=== PATIENT | female | born 1960 | race Caucasian/White ===

== ENCOUNTER 2021-03-31 16:35 | Emergency (ER) | payer OTHER, SELFPAY ==
[2021-03-31 16:49] VITALS: BP 124/82; PULSE 67; RESP 16; TEMP 36.5; O2SAT 97; BMI 25.4
[2021-03-31 17:17] LABS: Glucose Urine UA NEG (NEG); Leukocyte Esterase Urine 2+ (NEG); Nitrite Urine POS (NEG); Specific Gravity - Urine <= 1.005 (1.005-1.025); Urine Blood NEG (NEG); Urine Ketones NEG (NEG); Urine Protein NEG (NEG-TRACE)
[2021-03-31 17:19] LABS: Appearance Urine CLEAR; Color Urine STRAW
[2021-03-31 17:24] LABS: RBC Urine 0-2 /HPF (0); WBC Urine 0-2 /HPF (0-4)
[2021-03-31 17:25] LABS: Bacteria Urine 3+ /LPF
[2021-03-31 17:26] LABS: Amorphous Sediment Urine 2+ /LPF
[2021-03-31 17:50] LABS: MANUAL DIFF FLAG NO
[2021-03-31 17:53] LABS: Basophils Percent Auto 0.8 % (0-2); Eosinophils Absolute Auto 0.2 X10*3/uL (0.0-0.4); Eosinophils Percent Auto 3.1 % (0-4); Hematocrit 37.6 % (37-47); Hemoglobin 12.3 g/dl (12.0-16.0); Imm Gran Abs Auto 0.01 X10*3/uL (0.00-0.03); Imm Gran Pct Auto 0.2 % (0.0-0.4); Lymphocytes Absolute Auto 1.3 X10*3/uL (1.2-4.9); Lymphocytes Percent Auto 24.8 % (20-40); Mean Corpuscular HGB Conc 32.7 g/dl (31.0-35.0); Mean Corpuscular Hemoglobin 29.7 pg (27.0-33.0); Mean Corpuscular Volume 90.8 fL (80-98); Mean Platelet Volume 8.7 fL (9.4-12.3); Monocytes Absolute Auto 0.5 X10*3/uL (0.1-1.2); Neutrophils Absolute Auto 3.3 X10*3/uL (2.0-8.3); Neutrophils Percent Auto 62.1 % (45-73); Platelet Count 241 X10*3/uL (160-400); Red Blood Count 4.14 X10*6/uL (4.20-5.50); Red Cell Distribution Width 13.2 % (11.0-16.0); White Blood Count 5.2 X10*3/uL (4.8-10.8)
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
[2021-03-31 18:20] LABS: Alanine Aminotransferase 19 U/L (0-31); Albumin Level 4.1 g/dL (3.5-5.0); Alkaline Phosphatase 87 U/L (39-117); Aspartate Amino Transferase 24 U/L (5-31); Bilirubin Total 0.5 mg/dL (0.0-1.0); Blood Urea Nitrogen 12 mg/dL (9-16); Calcium 8.9 mg/dL (8.4-10.2); Creatinine Clr Calc Pharmacy 66.6; Estimated Glomerular Filt Rate > 60; Glucose Random 86 mg/dL (60-115); Magnesium 2.2 mg/dL (1.6-2.6); Total Protein 6.6 g/dL (6.5-8.0)
[2021-03-31 18:31] LABS: Anion Gap 12 (12-20); Carbon Dioxide 28 mmol/L (22-29); Chloride 98 mmol/L (96-108); Potassium 4.2 mmol/L (3.3-5.1); Sodium 134 mmol/L (135-145)
== END 2021-03-31 19:04 | disposition home or self-care (01) ==
PROVIDERS: Physician Assistant Medical; Emergency Provider Internal Medicine; PCP Internal Medicine
DX: T83.511A Infection and inflammatory reaction due to indwelling urethral catheter, initial encounter (principal); R10.30 Lower abdominal pain, unspecified; G82.20 Paraplegia, unspecified; Z87.440 Personal history of urinary (tract) infections
CPT/HCPCS: 36415; 80053; 81001; 83735; 85025; 99283; 99284

== ENCOUNTER 2021-04-08 13:37 | Emergency (ER) | payer OTHER, SELFPAY ==
[2021-04-08 14:00] VITALS: BP 136/81; PULSE 60; RESP 16; TEMP 36.7; O2SAT 99; BMI 20.9
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
[2021-04-08 15:22] LABS: Appearance Urine CLEAR; Color Urine STRAW; Glucose Urine UA NEG (NEG); Leukocyte Esterase Urine NEG (NEG); Nitrite Urine NEG (NEG); Specific Gravity - Urine <= 1.005 (1.005-1.025); Urine Blood 2+ (NEG); Urine Ketones NEG (NEG); Urine Protein NEG (NEG-TRACE)
[2021-04-08 15:27] LABS: Bacteria Urine TRACE /LPF; WBC Urine 0-2 /HPF (0-4)
[2021-04-08 15:41] LABS: Basophils Percent Auto 0.8 % (0-2); Eosinophils Absolute Auto 0.2 X10*3/uL (0.0-0.4); Eosinophils Percent Auto 3.4 % (0-4); Hematocrit 37.1 % (37-47); Hemoglobin 11.8 g/dl (12.0-16.0); Lymphocytes Absolute Auto 1.1 X10*3/uL (1.2-4.9); Lymphocytes Percent Auto 21.6 % (20-40); MANUAL DIFF FLAG NO; Mean Corpuscular HGB Conc 31.8 g/dl (31.0-35.0); Mean Corpuscular Hemoglobin 29.2 pg (27.0-33.0); Mean Corpuscular Volume 91.8 fL (80-98); Mean Platelet Volume 8.6 fL (9.4-12.3); Monocytes Absolute Auto 0.5 X10*3/uL (0.1-1.2); Monocytes Percent Auto 8.6 % (2-11); Neutrophils Absolute Auto 3.4 X10*3/uL (2.0-8.3); Neutrophils Percent Auto 65.6 % (45-73); Platelet Count 242 X10*3/uL (160-400); Red Blood Count 4.04 X10*6/uL (4.20-5.50); Red Cell Distribution Width 13.3 % (11.0-16.0); White Blood Count 5.2 X10*3/uL (4.8-10.8)
[2021-04-08 16:14] LABS: Alanine Aminotransferase 22 U/L (0-31); Albumin Level 3.8 g/dL (3.5-5.0); Alkaline Phosphatase 88 U/L (39-117); Anion Gap 12 (12-20); Aspartate Amino Transferase 27 U/L (5-31); Bilirubin Direct < 0.2 mg/dL (0.0-0.5); Bilirubin Total 0.5 mg/dL (0.0-1.0); Blood Urea Nitrogen 10 mg/dL (9-16); Calcium 9.1 mg/dL (8.4-10.2); Carbon Dioxide 26 mmol/L (22-29); Chloride 102 mmol/L (96-108); Creatinine Clr Calc Pharmacy 75.1; Estimated Glomerular Filt Rate > 60; Glucose Random 88 mg/dL (60-115); Lipase 33 U/L (8-78); Potassium 4.4 mmol/L (3.3-5.1); Sodium 136 mmol/L (135-145); Total Protein 6.4 g/dL (6.5-8.0)
== END 2021-04-08 16:58 | disposition home or self-care (01) ==
PROVIDERS: Emergency Provider Emergency Medicine; PCP Internal Medicine
DX: T83.84XA Pain due to genitourinary prosthetic devices, implants and grafts, initial encounter (principal); G82.20 Paraplegia, unspecified; R10.30 Lower abdominal pain, unspecified
CPT/HCPCS: 36415; 51702; 80048; 80076; 81001; 83690; 85025; 99283; 99284

== ENCOUNTER 2021-05-23 18:58 | Emergency (ER) | payer OTHER, SELFPAY ==
--- NOTE | ~2021-05-23 | CT_ITS ---
EXAMINATION: CT ABDOMEN AND PELVIS WITHOUT CONTRAST CLINICAL INFORMATION: Suprapubic catheter malfunction COMPARISON: CT abdomen pelvis April 06, 2019 TECHNIQUE: Multidetector volumetric imaging was performed from the superior aspect of the liver through the pubic symphysis. Sagittal and coronal reformatted images were obtained on the technologist's workstation. This CT examination was performed using dose optimization techniques as appropriate, variously including the following: *Automated exposure control *Adjustment of mA and/or kV according to patient size (this includes techniques or standardized protocols for targeted exams where dose is matched to indication/reason for exam; i.e. extremities or head) *Use of iterative reconstruction technique DLP: 453 mGy-cm FINDINGS: LUNG BASES: Asymmetric elevation of left diaphragm above the right. No acute airspace disease or pleural effusion at lung bases. LIVER, GALLBLADDER, AND BILIARY TREE: The liver is normal in size, shape, and attenuation. No focal hepatic lesion or biliary ductal dilatation is present. Small gallstones within the gallbladder. No gallbladder wall thickening. No dilatation of biliary tree. PANCREAS: Unremarkable. SPLEEN: Unremarkable. ADRENAL GLANDS: Unremarkable. KIDNEYS AND URETERS: Mild fullness of the renal pelvis and calyces of both kidney. This is similar to CAT scan April 06, 2019. No renal or ureteral calculus. BLADDER: Suprapubic catheter within the bladder. The catheter tip passes up against the dome of the bladder pressing into the bladder wall. The balloon of the suprapubic catheter which was inflated on the CAT scan of April 06, 2019 is not inflated on this exam. No bladder mass or calculus. GASTROINTESTINAL TRACT: No acute abnormality. There is no bowel wall thickening /edema. There is no bowel obstruction. There is a large volume of stool in the colon. The appendix is normal . The small bowel loops are unremarkable. The stomach is normal. There is no hiatal hernia. ABDOMINAL WALL: No significant hernia is appreciated. LYMPH NODES: Normal. VASCULAR: Unremarkable. PELVIC VISCERA: Unremarkable. OSSEOUS STRUCTURES: Intrathecal catheter terminating above the level of the imaged thoracic spine. The pump is seen at the anterior abdominal wall on the right. CT/CT abdomen pelvis wo con IMPRESSION: 1. Suprapubic catheter within the bladder. The catheter tip passes up against the dome of the bladder pressing into the bladder wall. The balloon of the suprapubic catheter which was inflated on the CAT scan of April 06, 2019 is not inflated on this exam. 2. Mild fullness of the renal pelvis of both kidneys without renal or ureteral calculi. No change since prior CAT scan April 06, 2019. 3. Cholelithiasis. 4. Large volume of stool in colon. No acute change of the bowel.
[2021-05-23 20:01] VITALS: BP 176/88; PULSE 84; RESP 18; TEMP 36.9; O2SAT 97; BMI 20.9
[2021-05-23 21:42] VITALS: BP 148/78; PULSE 65; RESP 16; O2SAT 100
[2021-05-23 22:11] LABS: MANUAL DIFF FLAG NO
[2021-05-23 22:12] LABS: Basophils Absolute Auto 0.1 X10*3/uL (0.0-0.2); Basophils Percent Auto 0.8 % (0-2); Eosinophils Absolute Auto 0.2 X10*3/uL (0.0-0.4); Eosinophils Percent Auto 3.4 % (0-4); Imm Gran Abs Auto 0.01 X10*3/uL (0.00-0.03); Imm Gran Pct Auto 0.2 % (0.0-0.4); Lymphocytes Absolute Auto 0.8 X10*3/uL (1.2-4.9); Lymphocytes Percent Auto 14.2 % (20-40); Mean Corpuscular HGB Conc 32.5 g/dl (31.0-35.0); Mean Corpuscular Hemoglobin 29.5 pg (27.0-33.0); Mean Corpuscular Volume 90.9 fL (80-98); Mean Platelet Volume 9.1 fL (9.4-12.3); Monocytes Absolute Auto 0.7 X10*3/uL (0.1-1.2); Monocytes Percent Auto 11.2 % (2-11); Neutrophils Absolute Auto 4.1 X10*3/uL (2.0-8.3); Neutrophils Percent Auto 70.2 % (45-73); Platelet Count 239 X10*3/uL (160-400); Red Cell Distribution Width 13.1 % (11.0-16.0); White Blood Count 5.9 X10*3/uL (4.8-10.8)
[2021-05-23 22:19] LABS: Appearance Urine HAZY; Color Urine YELLOW; Glucose Urine UA NEG (NEG); Leukocyte Esterase Urine 3+ (NEG); Nitrite Urine POS (NEG); PH 6.5 (5.0-8.0); Specific Gravity - Urine <= 1.005 (1.005-1.025); UACC Culture Trigger YES; Urine Blood 2+ (NEG); Urine Ketones NEG (NEG); Urine Protein NEG (NEG-TRACE)
[2021-05-23 22:29] LABS: Bacteria Urine 4+ /LPF; Mucus Urine 2+ /LPF; Squamous Epithelial Cell Urine 1+ /LPF
[2021-05-23 22:36] LABS: Alanine Aminotransferase 25 U/L (0-31); Albumin Level 4.5 g/dL (3.5-5.0); Alkaline Phosphatase 97 U/L (39-117); Anion Gap 15 (12-20); Aspartate Amino Transferase 27 U/L (5-31); Bilirubin Total 0.4 mg/dL (0.0-1.0); Blood Urea Nitrogen 11 mg/dL (9-16); Calcium 9.5 mg/dL (8.4-10.2); Carbon Dioxide 28 mmol/L (22-29); Chloride 99 mmol/L (96-108); Creatinine Clr Calc Pharmacy 74.1; Estimated Glomerular Filt Rate > 60; Glucose Random 75 mg/dL (60-115); Potassium 4.4 mmol/L (3.3-5.1); Sodium 138 mmol/L (135-145); Total Protein 7.5 g/dL (6.5-8.0)
--- NOTE | 2021-05-23 22:39 | ED.FEMALEGU ---
HPI - Female Genitourinary General Chief complaint: Urogenital-Female Stated complaint: diff urinating Time Seen by Provider: 05/23/21 22:29 Source: patient Mode of arrival: ambulatory Limitations: no limitations History of Present Illness HPI Narrative: 60-year-old quadriplegic female presents with suprapubic Ghotra problems, bladder pain and spasms, and increased spasticity since her 2nd COVID vaccine. MD elicited complaint: dysuria Pertinent past history: spinal cord injury and other (Suprapubic Ghotra) Onset (ago): day(s) Location of symptoms: suprapubic and urethra Severity: moderate Quality of pain: other (Spasming) Consistency: intermittent Vaginal discharge: none Vaginal bleeding: none Associated symptoms: abdominal pain Related Data Previous Rx's Medication Instructions Recorded ciprofloxacin HCl 250 mg tablet 250 mg PO BID 5 Days #10 tab 03/31/21 phenazopyridine 100 mg tablet 100 mg PO TID PRN #6 tab 03/31/21 (Pyridium) ciprofloxacin HCl 500 mg tablet 500 mg PO Q12H 10 Days #20 tab 05/24/21 (Cipro) phenazopyridine 200 mg tablet 200 mg PO TID PRN #20 tab 05/24/21 (Pyridium) Allergies Allergy/AdvReac Type Severity Reaction Status Date / Time nitrofurantoin Allergy Swelling Verified 05/23/21 20:13 [From Macrobid] Review of Systems Review of Systems: Constitutional: No Fever, No Chills ENT/Mouth: No Ear Pain, No Hoarseness, No sore throat Eyes: No Eye Pain, No Swelling, No Redness, No Foreign Body Cardiovascular: No Chest Pain, No SOB Respiratory: No Cough, No Dyspnea Gastrointestinal: No Nausea, No Vomiting, No Diarrhea, No abdominal Pain Genitourinary: Positive bladder spasms, positive suprapubic Ghotra catheter leaking at the site as well as urethral leaking, No Dysuria, No Hematuria Musculoskeletal: No joint pain, No Myalgias, No Joint Swelling Skin: No Skin lacerations, No rash Neuro: No Weakness, No Numbness, No Paresthesias, No Loss of Consciousness, No Dizziness, No Headache Psych: No Anxiety/Panic, No Depression Heme/Lymph: no easy bruising, no Lymphadenopathy Endocrine: No Polyuria, No Polydipsia PMFSH Past Medical History Attestation statement: The following information was validated with the patient. Source: old records reviewed Medical History (Updated 05/24/21 @ 00:23 by Naina Jackson NP) C5-C7 incomplete quadriplegia Neurogenic bladder Social History Social History Advance Directives: No Advance Directives Information Provided: No Physical Exam Vital Signs: Vital Signs: Last Vital Signs Temp 98.5 F 05/23/21 20:01 Pulse 78 05/24/21 00:09 Resp 18 05/24/21 00:09 BP 138/66 05/24/21 00:09 Pulse Ox 99 05/24/21 00:09 Body Mass Index 20.9 Appearance: Alert. Oriented X3. Moderate distress. Eyes: Pupils equal, round and reactive to light. ENT: Pharynx normal. Neck: Normal inspection. Neck supple. CVS: Normal heart rate and rhythm. Pulses normal. Respiratory: No respiratory distress. Breath sounds normal. Abdomen: Soft and nontender. Suprapubic Ghotra in place, leaking at the site Skin: Skin warm and dry. Normal skin color. Normal skin turgor. Extremities: Quadriplegia, moves upper extremities Neuro: No motor deficit. No sensory deficit. Cranial nerves 2-12 intact. Course Course Course Narrative: 60-year-old quadriplegic presents with suprapubic Ghotra leaking, bladder spasms, and spasticity. Lab values indicate UTI, will treat with Levaquin as we do not have ciprofloxacin on board, Pyridium and Ativan for spasticity. Will order abdomen pelvis CT scan secondary to urethral and ostomy site leakage. CT of the abdomen indicates the balloon is not inflated and that the end of the tubing is pressed up against the bladder wall which could possibly be why urine is leaking. Ghotra catheter was changed by this [employer] without any difficulty. Approximately 300 mL of residual urine, no leakage once Ghotra was changed and balloon was properly inflated. Will discharge home with antibiotics and Pyridium. Patient verbalized understanding of and agrees to plan of care discharge home. MDM - Female Genitourinary Differential Diagnosis Differential diagnosis: Likely urinary tract infection and cystitis Medical Records Attestation: I reviewed the patient's medical records. Lab Data Attestation: I reviewed the patient's lab results. Result diagrams: 05/23/21 21:41 05/23/21 21:41 Labs: Lab Results 05/23/21 05/23/21 05/23/21 Range/Units 21:41 21:41 21:43 WBC 5.9 (4.8-10.8) X10*3/uL RBC 4.40 (4.20-5.50) X10*6/uL Hgb 13.0 (12.0-16.0) g/dl Hct 40.0 (37-47) % MCV 90.9 (80-98) fL MCH 29.5 (27.0-33.0) pg MCHC 32.5 (31.0-35.0) g/dl RDW 13.1 (11.0-16.0) % Plt Count 239 (160-400) X10*3/uL MPV 9.1 L (9.4-12.3) fL Immature Gran % (Auto) 0.2 (0.0-0.4) % Neut % (Auto) 70.2 (45-73) % Lymph % (Auto) 14.2 L (20-40) % [place] % (Auto) 11.2 H (2-11) % Eos % (Auto) 3.4 (0-4) % Baso % (Auto) 0.8 (0-2) % Lymph # (Auto) 0.8 L (1.2-4.9) X10*3/uL [place] # (Auto) 0.7 (0.1-1.2) X10*3/uL Eos # (Auto) 0.2 (0.0-0.4) X10*3/uL Baso # (Auto) 0.1 (0.0-0.2) X10*3/uL Abs Immat Gran (auto) 0.01 (0.00-0.03) X10*3/uL Absolute Neuts (auto) 4.1 (2.0-8.3) X10*3/uL Absolute Nucleated RBC 0.000 (0.0-0.012) X10*3/uL Nucleated RBC % (auto) 0.0 (0.0-0.2) /100WBC Sodium 138 (135-145) mmol/L Potassium 4.4 (3.3-5.1) mmol/L Chloride 99 (96-108) mmol/L Carbon Dioxide 28 (22-29) mmol/L Anion Gap 15 (12-20) BUN 11 (9-16) mg/dL Creatinine 0.77 (0.5-1.4) mg/dL Estim Creat Clear Calc 74.1 Estimated GFR > 60 Random Glucose 75 (60-115) mg/dL Calcium 9.5 (8.4-10.2) mg/dL Total Bilirubin 0.4 (0.0-1.0) mg/dL AST 27 (5-31) U/L ALT 25 (0-31) U/L Alkaline Phosphatase 97 (39-117) U/L Total Protein 7.5 (6.5-8.0) g/dL Albumin 4.5 (3.5-5.0) g/dL Urine Color YELLOW Urine Appearance HAZY Urine pH 6.5 (5.0-8.0) Ur Specific [place] <= 1.005 (1.005-1.025) Urine Protein NEG (NEG-TRACE) MG/DL Urine Glucose (UA) NEG (NEG) MG/DL Urine Ketones NEG (NEG) MG/DL Urine Blood 2+ H (NEG) Urine Nitrite POS H (NEG) Ur Leukocyte Esterase 3+ H (NEG) Urine RBC 5-9 H (0) /HPF Urine WBC 10-14 H (0-4) /HPF Ur Squamous Epith Cells 1+ /LPF Urine Bacteria 4+ /LPF Urine Mucus 2+ /LPF Imaging Data CT abdomen pelvis: Attestation: I personally reviewed and interpreted this imaging study as follows: Radiologist's impression: FINDINGS: LUNG BASES: Asymmetric elevation of left diaphragm above the right. No acute airspace disease or pleural effusion at lung bases.? LIVER, GALLBLADDER, AND BILIARY TREE: The liver is normal in size, shape, and attenuation. No focal hepatic lesion or biliary ductal dilatation is present. Small gallstones within the gallbladder. No gallbladder wall thickening. No dilatation of biliary tree.? PANCREAS: Unremarkable.? SPLEEN: Unremarkable.? ADRENAL GLANDS: Unremarkable.? KIDNEYS AND URETERS: Mild fullness of the renal pelvis and calyces of both kidney. This is similar to CAT scan April 06, 2019. No renal or ureteral calculus.? BLADDER: Suprapubic catheter within the bladder. The catheter tip passes up against the dome of the bladder pressing into the bladder wall. The balloon of the suprapubic catheter which was inflated on the CAT scan of April 06, 2019 is not inflated on this exam. No bladder mass or calculus. GASTROINTESTINAL TRACT: No acute abnormality. There is no bowel wall thickening /edema. There is no bowel obstruction. There is a large volume of stool in the colon. The appendix is normal . The small bowel loops are unremarkable. The stomach is normal. There is no hiatal hernia.? ABDOMINAL WALL: No significant hernia is appreciated.? LYMPH NODES: Normal. VASCULAR: Unremarkable. PELVIC VISCERA: Unremarkable.? OSSEOUS STRUCTURES: Intrathecal catheter terminating above the level of the imaged thoracic spine. The pump is seen at the anterior abdominal wall on the right.? CT/CT abdomen pelvis wo con IMPRESSION: ? 1.? Suprapubic catheter within the bladder. The catheter tip passes up against the dome of the bladder pressing into the bladder wall. The balloon of the suprapubic catheter which was inflated on the CAT scan of April 06, 2019 is not inflated on this exam. 2. Mild fullness of the renal pelvis of both kidneys without renal or ureteral calculi. No change since prior CAT scan April 06, 2019. 3. Cholelithiasis. 4. Large volume of stool in colon. No acute change of the bowel. Discharge Plan Discharge Clinical Impression: Chronic indwelling Ghotra catheter, Paraplegic spinal paralysis, Urinary tract infection Patient Disposition: Home, Self-Care Instructions: Constipation (ED), Catheter-associated Urinary Tract Infection (ED) Additional Instructions: You were evaluated for suprapubic Ghotra catheter problems. We replaced her Ghotra. Urinalysis positive for UTI. Please take ciprofloxacin 500 mg twice a day for the next 10 days. Please use Pyridium 200 mg as needed for bladder spasms. Your CT scan of abdomen and pelvis indicates constipation. Please take MiraLax twice a day and use suppositories more often to help reduce stool burden. I think your amazing. Thank you for being awesome. Thank you for choosing this emergency department for evaluation. Please follow-up with primary care physician as needed. Return to the emergency department for any new, concerning, or worsening symptoms. Prescriptions: New ciprofloxacin HCl [Cipro] 500 mg tablet 500 mg PO Q12H 10 Days Qty: 20 RF: 0 phenazopyridine [Pyridium] 200 mg tablet 200 mg PO TID PRN (Reason: Bladder spasm) Qty: 20 RF: 0 No Action ciprofloxacin HCl 250 mg tablet 250 mg PO BID 5 Days Qty: 10 RF: 0 phenazopyridine [Pyridium] 100 mg tablet 100 mg PO TID PRN (Reason: pain) Qty: 6 RF: 0 Interventions: ED Discharge Assessment Last Done: 05/24/21 00:59 Discharge Date/Time: 05/24/21 00:55
[2021-05-23] MEDS: LORazepam 0.5 MG TABLET PO (23:02)
[2021-05-23] MEDS: Phenazopyridine HCL 200 MG TABLET PO (23:02)
[2021-05-23] MEDS: Acetaminophen 325 MG TABLET 650 MG PO (23:03)
[2021-05-24] MEDS: levoFLOXacin 750 MG TABLET PO (00:06)
[2021-05-24 00:09] VITALS: BP 138/66; PULSE 78; RESP 18; O2SAT 99
== END 2021-05-24 00:55 | disposition home or self-care (01) ==
PROVIDERS: Emergency Provider Emergency Medicine
DX: T83.038A Leakage of other urinary catheter, initial encounter (principal); T83.511A Infection and inflammatory reaction due to indwelling urethral catheter, initial encounter; N39.0 Urinary tract infection, site not specified; G82.20 Paraplegia, unspecified; G95.89 Other specified diseases of spinal cord; Z96.0 Presence of urogenital implants; Z79.899 Other long term (current) drug therapy
CPT/HCPCS: 36415; 51702; 74176; 80053; 81001; 85025; 87086; 87088; 87186; 99284

== ENCOUNTER → 2021-06-11 09:17 | Outpatient (BNVA) | payer OTHER, SELFPAY | PROVIDERS: PCP Internal Medicine | DX: G82.50 Quadriplegia, unspecified (principal); Z87.440 Personal history of urinary (tract) infections | CPT/HCPCS: 51705; 99212 ==

== ENCOUNTER → 2021-07-24 13:29 | Outpatient (BNVA) | payer OTHER, SELFPAY | PROVIDERS: PCP Internal Medicine | DX: N39.0 Urinary tract infection, site not specified (principal) | CPT/HCPCS: 99212 ==

== ENCOUNTER → 2021-08-07 14:28 | Outpatient (BNVA) | payer OTHER, SELFPAY | PROVIDERS: PCP Internal Medicine | DX: N39.0 Urinary tract infection, site not specified (principal) | CPT/HCPCS: Q3014 ==

== ENCOUNTER 2021-08-23 13:47 | Outpatient (REF) | payer OTHER, SELFPAY ==
[2021-08-23 15:31] LABS: Appearance Urine CLEAR; Color Urine YELLOW; Glucose Urine UA NEG (NEG); Leukocyte Esterase Urine 3+ (NEG); Nitrite Urine NEG (NEG); Specific Gravity - Urine <= 1.005 (1.005-1.025); Urine Blood NEG (NEG); Urine Ketones NEG (NEG); Urine Protein NEG (NEG-TRACE)
[2021-08-23 16:01] LABS: Bacteria Urine TRACE /LPF; RBC Urine 0-2 /HPF (0); Squamous Epithelial Cell Urine TRACE /LPF
== END 2021-08-23 13:48 | disposition home or self-care (01) ==
LOC: HO.LAB 13:47
PROVIDERS: PCP Internal Medicine
DX: N39.0 Urinary tract infection, site not specified (principal)
CPT/HCPCS: 81001; 87086; 87088; 87186

== ENCOUNTER → 2021-12-10 11:58 | Outpatient (BNVA) | payer OTHER, SELFPAY | PROVIDERS: PCP Internal Medicine | DX: Z13.89 Encounter for screening for other disorder (principal) | CPT/HCPCS: Q3014 ==

== ENCOUNTER 2022-05-16 11:47 | Emergency (ER) | payer OTHER, SELFPAY ==
--- NOTE | ~2022-05-16 | XR_ITS ---
EXAMINATION: XR chest 1V CLINICAL INFORMATION: Cough COMPARISON: Most recent prior chest x-ray from 04/08/2018 TECHNIQUE: XR chest 1V Lungs and [place]enn[place]: Both lungs are clear. There is a right apical pleural thickening pleural capping chronic unchanged. Mild diffuse interstitial markings. Chronic. Pleura: Normal. Costophrenic angles are sharp. No pneumothorax. Heart: The heart is normal in size. Mediastinum: The mediastinum is within normal limits.. Bones: Skeletal structures included are normal for patient's age. XR/XR chest 1V IMPRESSION: No radiographic evidence of acute infiltrate pneumonia. Chronic changes as above.
[2022-05-16 12:43] VITALS: BP 154/73; PULSE 80; RESP 16; TEMP 37.2; O2SAT 99; BMI 20.3
[2022-05-16 13:23] LABS: COVID-19 Test Negative (Negative)
[2022-05-16 13:35] LABS: IDNOW Serial# 08D9AD1C; Influenza A Negative (Negative); Influenza B2 Negative (Negative)
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
== END 2022-05-16 14:34 | disposition home or self-care (01) ==
PROVIDERS: Emergency Provider Student in an Organized Health Care Education/Training Program; PCP Internal Medicine
DX: H66.91 Otitis media, unspecified, right ear (principal); H92.01 Otalgia, right ear; R42 Dizziness and giddiness; R05.9 Cough, unspecified; Z20.822 Contact with and (suspected) exposure to COVID-19
CPT/HCPCS: 71045; 87502; 87635; 99283

== ENCOUNTER 2022-06-23 14:41 | Outpatient (REF) | payer OTHER, SELFPAY ==
[2022-06-23 15:45] LABS: Appearance Urine Clear; Color Urine Dark Yellow; Glucose Urine UA Negative (Negative); Leukocyte Esterase Urine Moderate (2+) (Negative); Nitrite Urine Negative (Negative); Specific Gravity - Urine <= 1.005 (1.005-1.025); UMIC TRIGGER UA YES; Urine Blood Negative (Negative); Urine Ketones Negative (Negative); Urine Protein Negative (Neg-Trace)
[2022-06-23 16:08] LABS: Bacteria Urine 4+ (None Seen); Hyaline Casts Urine 0-2 /LPF (0-2); RBC Urine 0-2 /HPF (0-2); Squamous Epithelial Cell Urine 0-2 /HPF (0-2)
== END 2022-06-23 14:42 | disposition home or self-care (01) ==
LOC: HO.LAB 14:41
PROVIDERS: PCP Internal Medicine; Visit Provider Urology
DX: N39.0 Urinary tract infection, site not specified (principal)
CPT/HCPCS: 81001; 87086; 87088; 87186

== ENCOUNTER → 2022-08-15 13:04 | Outpatient (BNVA) | payer OTHER, SELFPAY | PROVIDERS: PCP Internal Medicine; Visit Provider Urology | DX: N39.0 Urinary tract infection, site not specified (principal); G82.54 Quadriplegia, C5-C7 incomplete; Z97.8 Presence of other specified devices | CPT/HCPCS: Q3014 ==

== ENCOUNTER 2022-09-19 13:39 | Outpatient (REF) | payer OTHER, SELFPAY ==
[2022-09-19 15:06] LABS: Appearance Urine Clear; Color Urine Dark Yellow; Glucose Urine UA Negative (Negative); Leukocyte Esterase Urine Large (3+) (Negative); Nitrite Urine Positive (Negative); Specific Gravity - Urine <= 1.005 (1.005-1.025); UMIC TRIGGER UA YES; Urine Blood Moderate (2+) (Negative); Urine Ketones Negative (Negative); Urine Protein Negative (Neg-Trace)
[2022-09-19 15:11] LABS: Bacteria Urine 1+ (None Seen); Hyaline Casts Urine 0-2 /LPF (0-2); Squamous Epithelial Cell Urine 0-2 /HPF (0-2)
== END 2022-09-19 13:40 | disposition home or self-care (01) ==
LOC: HO.LAB 13:39
PROVIDERS: PCP Internal Medicine; Visit Provider Urology
DX: N39.0 Urinary tract infection, site not specified (principal)
CPT/HCPCS: 81001; 87086

== ENCOUNTER 2022-12-08 16:19 | Outpatient (REF) | payer OTHER, SELFPAY ==
--- NOTE | ~2022-12-08 | US_ITS ---
EXAMINATION: US RETROPERITONEAL LIMITED (RENAL ONLY) CLINICAL INFORMATION: Urinary tract infection, site not specified. COMPARISON: CT abdomen and pelvis without contrast 05/23/2021. TECHNIQUE: Real-time imaging of the kidneys. FINDINGS: RIGHT KIDNEY: 9.1 x 4.0 x 4.4 cm (SAG x AP x TRV). The kidney is normal in size, contour, and echogenicity. Renal cortical thickness is normal. No calculi or focal parenchymal lesions. There are scattered echogenic foci which do not conform ultrasound criteria for calculi. No hydronephrosis. LEFT KIDNEY: 8.5 x 4.4 x 4.0 cm (SAG x AP x TRV). The kidney is normal in size, contour, and echogenicity. Renal cortical thickness is normal. No calculi or focal parenchymal lesions. There are scattered echogenic foci which do not conform ultrasound criteria for calculi. No hydronephrosis. US/US renal BI IMPRESSION: Unremarkable examination.
== END 2022-12-08 16:20 | disposition home or self-care (01) ==
LOC: HO.US 16:19
PROVIDERS: PCP Internal Medicine; Visit Provider Urology
DX: G82.20 Paraplegia, unspecified (principal); N31.9 Neuromuscular dysfunction of bladder, unspecified; N39.0 Urinary tract infection, site not specified; Z97.8 Presence of other specified devices
CPT/HCPCS: 76775

== ENCOUNTER → 2022-12-29 13:44 | Outpatient (BNVA) | payer OTHER, SELFPAY | PROVIDERS: PCP Internal Medicine; Visit Provider Urology | DX: N39.0 Urinary tract infection, site not specified (principal); G82.54 Quadriplegia, C5-C7 incomplete; Z97.8 Presence of other specified devices | CPT/HCPCS: Q3014 ==

== ENCOUNTER 2023-01-22 14:09 | Outpatient (REF) | payer OTHER, SELFPAY ==
[2023-01-22 15:08] LABS: Appearance Urine Clear; Color Urine Yellow; Glucose Urine UA Negative (Negative); Leukocyte Esterase Urine Moderate (2+) (Negative); Nitrite Urine Negative (Negative); Specific Gravity - Urine <= 1.005 (1.005-1.025); UMIC TRIGGER UA YES; Urine Blood Negative (Negative); Urine Ketones Negative (Negative); Urine Protein Negative (Neg-Trace)
[2023-01-22 15:19] LABS: Bacteria Urine 2+ (None Seen); Hyaline Casts Urine 0-2 /LPF (0-2); RBC Urine 0-2 /HPF (0-2); Squamous Epithelial Cell Urine 0-2 /HPF (0-2)
== END 2023-01-22 14:10 | disposition home or self-care (01) ==
LOC: HO.LAB 14:09
PROVIDERS: PCP Internal Medicine; Visit Provider Urology
DX: N39.0 Urinary tract infection, site not specified (principal); N31.9 Neuromuscular dysfunction of bladder, unspecified
CPT/HCPCS: 81001; 87086; 87088; 87186

== ENCOUNTER 2023-02-08 15:13 | Outpatient (REF) | payer OTHER, SELFPAY | END 2023-02-08 15:14 | disposition home or self-care (01) | LOC: HO.LAB 15:13 | PROVIDERS: PCP Internal Medicine; Visit Provider Urology | DX: N31.9 Neuromuscular dysfunction of bladder, unspecified (principal); N39.0 Urinary tract infection, site not specified | CPT/HCPCS: 87086; 87088; 87186 ==

== ENCOUNTER → 2023-02-25 13:04 | Outpatient (BNVA) | payer OTHER, SELFPAY | PROVIDERS: PCP Internal Medicine; Visit Provider Internal Medicine | DX: N39.0 Urinary tract infection, site not specified (principal); N31.9 Neuromuscular dysfunction of bladder, unspecified; B96.5 Pseudomonas (aeruginosa) (mallei) (pseudomallei) as the cause of diseases classified elsewhere; Z16.23 Resistance to quinolones and fluoroquinolones; S14.157A Other incomplete lesion at C7 level of cervical spinal cord, initial encounter; G82.54 Quadriplegia, C5-C7 incomplete; V89.0XXA Person injured in unspecified motor-vehicle accident, nontraffic, initial encounter; Y93.9 Activity, unspecified; Y92.9 Unspecified place or not applicable; Y99.8 Other external cause status; Z97.8 Presence of other specified devices | CPT/HCPCS: 99202 ==

== ENCOUNTER 2023-04-13 10:33 | Outpatient (AMB) | payer OTHER, SELFPAY ==
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
== END 2023-04-13 11:00 | disposition home or self-care (01) ==
LOC: HO.HUSH 10:33
PROVIDERS: PCP Internal Medicine; Visit Provider Urology
DX: G82.54 Quadriplegia, C5-C7 incomplete (principal); N31.9 Neuromuscular dysfunction of bladder, unspecified; Z97.8 Presence of other specified devices; G82.20 Paraplegia, unspecified; N39.0 Urinary tract infection, site not specified
CPT/HCPCS: 99213

== ENCOUNTER → 2023-04-13 10:33 | Outpatient (BNVA) | payer OTHER, SELFPAY | PROVIDERS: PCP Internal Medicine; Visit Provider Urology | DX: N31.9 Neuromuscular dysfunction of bladder, unspecified (principal); G82.54 Quadriplegia, C5-C7 incomplete; N39.0 Urinary tract infection, site not specified; Z96.0 Presence of urogenital implants | CPT/HCPCS: 99212 ==

== ENCOUNTER 2023-07-22 14:20 | Outpatient (REF) | payer OTHER, SELFPAY ==
[2023-07-22 15:13] LABS: Appearance Urine Clear; Color Urine Yellow; Glucose Urine UA Negative (Negative); Leukocyte Esterase Urine Moderate (2+) (Negative); Nitrite Urine Positive (Negative); PH 7.5 (5.0-9.0); Specific Gravity - Urine <= 1.005 (1.005-1.025); UMIC TRIGGER UA YES; Urine Blood Negative (Negative); Urine Ketones Negative (Negative); Urine Protein Negative (Neg-Trace)
[2023-07-22 15:19] LABS: Bacteria Urine Trace (None Seen); Hyaline Casts Urine 0-2 /LPF (0-2); RBC Urine 0-2 /HPF (0-2); Squamous Epithelial Cell Urine 0-2 /HPF (0-2)
== END 2023-07-22 14:21 | disposition home or self-care (01) ==
LOC: HO.LAB 14:20
PROVIDERS: PCP Internal Medicine; Visit Provider Urology
DX: N39.0 Urinary tract infection, site not specified (principal)
CPT/HCPCS: 81001; 87086; 87088; 87186

== ENCOUNTER → 2023-08-14 13:19 | Outpatient (BNVA) | payer OTHER, SELFPAY | PROVIDERS: PCP Internal Medicine; Visit Provider Urology ==

== ENCOUNTER 2023-10-22 11:54 | Outpatient (AMB) | payer OTHER, SELFPAY ==
--- NOTE | 2023-10-22 11:54 | MHC.OFFVIS ---
Intake Intake Visit Reasons: 6m/neurogenic bladder/SP tube/chronic UTI's Allergies nitrofurantoin [From Macrobid] Allergy (Verified 04/13/23 10:34) Swelling Penicillins Allergy (Verified 04/13/23 10:34) Unknown Sulfa (Sulfonamide Antibiotics) Allergy (Verified 04/13/23 10:34) Unknown HPI HPI Comments History of Present Illness Details Erica is a pleasant female. She is a patient of Dr. Reyes. She is seen for the following urologic conditions. 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 Neurogenic bladder managed with SP tube 18 Chinese Tube changed every 3 weeks by COOK STARCH Baseline oxybutynin 5 mg for spasm Has been on methenamine 1 g for suppression however causes diarrhea Will use it when has UTI type symptoms Again discussed today possible use of Macrobid however has allergy to nitrofurantoin Reviewed: Renal US?12/08/2022-- Kidneys: WNL, No renal calculi visualized Continue surveillance Tele health visits work better given her restriction from attending office [facility] Medical History C5-C7 incomplete quadriplegia (~10/2015) Neurogenic bladder Social History Alcohol intake: current Patient Tobacco Use Status: Former Tobacco user Review of Systems Const All systems reviewed & are unremarkable except as noted in HPI and below Reports no additional complaints Resp Reports no additional complaints GI Reports no additional complaints Reports as per HPI Musc Reports no additional complaints Physical Exam Telemedicine evaluation Appropriate responses Regular breathing rate and rhythm HEENT Head: Yes normal to inspection Ears: hearing grossly normal bilaterally Eyes General: appearance normal, both eyes and all related structures Neck Neck: Yes normal visual inspection Chest Chest palpation & inspection: normal inspection of the chest Resp Effort & Inspection: normal respiratory effort and able to speak in complete sentences Assessment & Plan Assessment & Plan (1) Neurogenic bladder: Code(s): N31.9 - Neuromuscular dysfunction of bladder, unspecified (2) Bladder spasm: Code(s): N32.89 - Other specified disorders of bladder Plan Six-month follow-up Patient Instructions: Imaging studies, laboratory and physical exam results were discussed and reviewed in detail. No major barriers to patient understanding were identified. An opportunity to ask questions regarding the treatment plan was provided. All questions were answered. The patient expressed understanding and agreement with the above treatment plan. The patient is aware they should contact our office by phone for worsening of their current condition or the appearance of new urologic symptoms. Compliance is encouraged with any medications and followup testing that is ordered. It is a privilege to participate in the urologic care of your patient. If you have any questions or concerns regarding treatment for the above conditions, or other urologic issues, please do not hesitate to contact me. The office telephone contact is [phone]. This note is constructed using voice recognition software. While every effort has been made to ensure accuracy arcade game technician errors may have been included. Yours sincerely, Dr Nelson Calvo MD, [facility] - Urology Providers of Expert, Compassionate Care for the Genitourinary System Telehealth Telehealth Location of provider rendering services: practice address Location of patient: address on file Patient Identification confirmed using: Name, : Yes Telehealth method: video Patient verbally consented to treatment: Yes Patient verbally consented to billing insurance company: Yes Patient informed of any privacy concerns related to visit: Yes Coding Level of Care Code Tele Est Pt Level 3 (04449) Diagnoses Neurogenic bladder N31.9 Bladder spasm N32.89
== END 2023-10-22 12:34 | disposition home or self-care (01) ==
LOC: HO.HUSH 11:54
PROVIDERS: PCP Internal Medicine; Visit Provider Urology
DX: N31.9 Neuromuscular dysfunction of bladder, unspecified (principal); N32.89 Other specified disorders of bladder
CPT/HCPCS: 99213

== ENCOUNTER → 2023-10-22 11:54 | Outpatient (BNVA) | payer OTHER, SELFPAY | PROVIDERS: PCP Internal Medicine; Visit Provider Urology ==

== ENCOUNTER 2023-10-23 08:52 | Emergency (ER) | payer OTHER, SELFPAY ==
[2023-10-23 09:27] VITALS: BP 149/79; BP 149/80; PULSE 60; PULSE 68; RESP 20; TEMP 37; O2SAT 97; O2SAT 98; BMI 21.0
--- NOTE | 2023-10-23 09:49 | ED_ITS ---
HPI - Female Genitourinary General Chief complaint: Urogenital-Female Stated complaint: CATH TUBE FELL OUT Time Seen by Provider: 10/23/23 09:20 Source: patient, old records reviewed and other Mode of arrival: EMS Limitations: no limitations History of Present Illness HPI Narrative: 62 yo female with C3-C4 quad from SCI with chronic suprapubic cath for last 8 years normally uses 18F last known in place at 1030pm woke up with cath and balloon deflated on bed near her. MD elicited complaint: other (sam cath problem) Pertinent past history: spinal cord injury and other (chronic indwelling) Onset (ago): day(s) (?1030pm) Location of symptoms: suprapubic Severity: moderate Quality of pain: cramping Consistency: intermittent Urinary symptoms: Difficulty Urinating Exacerbating factors: none Relieving factors: none Associated symptoms: denies other symptoms Treatment prior to arrival: none Related Data Home Medications Medication Instructions Recorded Confirmed citalopram 10 mg tablet 10 mg PO DAILY 08/07/21 08/15/22 citalopram 20 mg tablet 20 mg PO DAILY 08/07/21 08/15/22 gabapentin 100 mg capsule 100 mg PO TID 08/07/21 08/15/22 gabapentin 600 mg tablet 600 mg PO TID 08/07/21 08/15/22 levothyroxine 50 mcg capsule 50 mcg PO DAILY 08/07/21 08/15/22 polyethylene glycol 3350 17 17 g PO DAILY 08/07/21 08/15/22 gram/dose oral powder (Miralax) sennosides 17.2 mg tablet 17.2 mg PO DAILY 08/07/21 08/15/22 Previous Rx's Medication Instructions Recorded methenamine hippurate 1 gram tablet 1 g PO BID 30 days #60 tabs 02/25/23 oxybutynin chloride 5 mg tablet 5 mg PO DAILY #90 tabs 04/13/23 ciprofloxacin HCl 500 mg tablet 500 mg PO BID 4 days #8 tabs 08/24/23 phenazopyridine 100 mg tablet 100 mg PO TID PRN pain 5 days #15 08/25/23 (Pyridium) tabs levofloxacin 750 mg tablet 750 mg PO DAILY 7 days #7 tabs 09/18/23 Allergies Allergy/AdvReac Type Severity Reaction Status Date / Time nitrofurantoin Allergy Swelling Verified 10/23/23 09:37 [From Macrobid] Penicillins Allergy Unknown Verified 10/23/23 09:37 Sulfa (Sulfonamide Allergy Unknown Verified 10/23/23 09:37 Antibiotics) sulfamethoxazole Allergy Swelling Verified 10/23/23 09:37 [From Bactrim] trimethoprim [From Bactrim] Allergy Swelling Verified 10/23/23 09:37 Review of Systems Review of Systems: Constitutional : No Weight loss, No Fever, No Chills ENT/Mouth : No sore throat, No Rhinorrhea Eyes: No Swelling, No Redness Cardiovascular : No Chest Pain, No SOB, NoEdema Respiratory : No Cough, No Sputum, No Wheezing Gastrointestinal : no Nausea, no Vomiting, no Diarrhea, positive abdominal Pain, No Hematochezia, No Melena Genitourinary : No Dysuria, No Urinary Frequency, No Hematuria, No Urgency Musculoskeletal : No joint pain, No Myalgias, No Joint Swelling Skin : No Skin Lesions, No rash Neuro : No Weakness, No Numbness, No Dizziness, No Headache Psych : No Anxiety/Panic, No Depression All other systems reviewed and are negative. [facility] Past Medical History Attestation statement: The following information was validated with the patient. Source: old records reviewed Onset Date is defined in the Problem List Problems that require an onset date and time if occurred within 24 hrs of arrival to the ED Aortic Dissection and Rupture; Neurologic impairment; Cardiopulmonary Arrest; Endotracheal Intubation; Insertion or Replacement of Mechanical Circulatory Assist Device Medical History C5-C7 incomplete quadriplegia (~10/2015) Neurogenic bladder Social History Social History Alcohol intake: current Patient Tobacco Use Status: Former Tobacco user Physical Exam Vital Signs: Vital Signs: Last Vital Signs Temp 98.6 F 10/23/23 09:27 Pulse 60 10/23/23 09:27 Resp 20 10/23/23 09:27 BP 149/79 H 10/23/23 09:27 Pulse Ox 97 10/23/23 09:27 O2 Del Method Room Air 10/23/23 09:27 BMI result Body Mass Index 21.0 Appearance: Alert. Oriented X3. No acute distress. Eyes: Pupils equal, round and reactive to light. ENT: Pharynx normal. Neck: Normal inspection. Neck supple. CVS: Normal heart rate and rhythm. Pulses normal. Respiratory: No respiratory distress. Breath sounds normal. Abdomen: Soft and mild ttp along suprapubic area it feels full tract is appearing closed and small no blood seen no erythema Skin: Skin warm and dry. Normal skin color. Normal skin turgor. Extremities: No lower extremity edema. No calf ttp Neuro: Oriented X 3. SCI C3-C7 LE spastic Medical Decision Making Medical Decision Making MDM Narrative: 62 yo female SCI C3-C7, chronic 18F suprapubic cath at this time no bleeding balloon was deflated tract is 8 years old at this time will need replacement will use 14F given swollen area and to prevent trauma. No concern for bleeding or infection urine is clear and yellow. Differential Diagnosis Differential Diagnoses: The differential diagnosis associated with the presentation includes loss of sam catheter Independent Historian Clinical information obtained from an independent historian. History obtained from or confirmed by: Other External Record Review External record reviewed: Inpatient record Procedures Catheter Insertion (Urinary) Date of insertion: 10/23/23 Time of insertion: 09:54 Reason for placing: Yes Reason for placing indwelling catheter: Other (chronic indwelling) Bladder scan/ultrasound used before catheterization: No Estimated amount of urine (mLs): 700 Antiseptic solution prep: Povidone-Iodine Topical anesthesia used: No Catheter type/location: Suprapubic Size ([place]i): 14 Catheter balloon size (mL): 10 Catheter balloon amount: 10 Results: successfully catheterized-immediate flow Procedure performed: without complications Discharge Plan Discharge Clinical Impression: Mechanical complication of suprapubic catheter Qualifiers: Encounter type: initial encounter Qualified Code(s): T83.090A - Other mechanical complication of cystostomy catheter, initial encounter Patient Disposition: Home, Self-Care Instructions: How to Care for Your Suprapubic Catheter (DC) Additional Instructions: return for bleeding, pain, fevers, vomiting or any other concerns. 14 F placed given tract was swollen and narrow. will need to increase in size in about a week please contact Dr. Calvo's office. Prescriptions: No Action ciprofloxacin HCl 500 mg tablet 500 mg PO BID 4 Days Qty: 8 0RF phenazopyridine [Pyridium] 100 mg tablet 100 mg PO TID PRN (Reason: pain) 5 Days Qty: 15 0RF levofloxacin 750 mg tablet 750 mg PO DAILY 7 Days Qty: 7 0RF gabapentin 600 mg tablet 600 mg PO TID gabapentin 100 mg capsule 100 mg PO TID citalopram 20 mg tablet 20 mg PO DAILY citalopram 10 mg tablet 10 mg PO DAILY sennosides 17.2 mg tablet 17.2 mg PO DAILY polyethylene glycol 3350 [Miralax] 17 gram/dose powder 17 g PO DAILY levothyroxine 50 mcg capsule 50 mcg PO DAILY oxybutynin chloride 5 mg tablet 5 mg PO DAILY Qty: 90 3RF methenamine hippurate 1 gram tablet 1 g PO BID 30 Days Qty: 60 5RF
[2023-10-23] MEDS: Ondansetron ODT 4 MG TAB.RAPDIS TRANSLINGU (10:01)
== END 2023-10-23 10:36 | disposition home or self-care (01) ==
PROVIDERS: Emergency Provider Emergency Medicine; PCP Internal Medicine
DX: T83.098A Other mechanical complication of other urinary catheter, initial encounter (principal); Y73.8 Miscellaneous gastroenterology and urology devices associated with adverse incidents, not elsewhere classified; Y92.9 Unspecified place or not applicable
CPT/HCPCS: 51702; 99283; 99284

== ENCOUNTER → 2023-10-28 13:42 | Outpatient (BNVA) | payer OTHER, SELFPAY | PROVIDERS: PCP Internal Medicine; Visit Provider Urology | DX: N31.9 Neuromuscular dysfunction of bladder, unspecified (principal) | CPT/HCPCS: 51705 ==

== ENCOUNTER 2023-11-10 13:46 | Outpatient (REF) | payer OTHER, SELFPAY ==
[2023-11-10 14:39] LABS: Appearance Urine Clear; Color Urine Yellow; Glucose Urine UA Negative (Negative); Leukocyte Esterase Urine Negative (Negative); Nitrite Urine Negative (Negative); PH 7.5 (5.0-9.0); Specific Gravity - Urine <= 1.005 (1.005-1.025); Urine Blood Negative (Negative); Urine Ketones Negative (Negative); Urine Protein Negative (Neg-Trace)
[2023-11-10 14:45] LABS: Bacteria Urine None Seen (None Seen); Hyaline Casts Urine 0-2 /LPF (0-2); RBC Urine 0-2 /HPF (0-2); Squamous Epithelial Cell Urine 0-2 /HPF (0-2); WBC Urine 0-5 /HPF (0-5)
== END 2023-11-10 13:47 | disposition home or self-care (01) ==
LOC: HO.LAB 13:46
PROVIDERS: PCP Internal Medicine; Visit Provider Urology
DX: N39.0 Urinary tract infection, site not specified (principal)
CPT/HCPCS: 81001; 87086; 87088; 87186

== ENCOUNTER 2024-02-22 14:37 | Outpatient (REF) | payer OTHER, SELFPAY ==
[2024-02-22 14:49] LABS: Appearance Urine Clear; Color Urine Yellow; Glucose Urine UA Negative (Negative); Leukocyte Esterase Urine Large (3+) (Negative); Nitrite Urine Negative (Negative); Specific Gravity - Urine <= 1.005 (1.005-1.025); UMIC TRIGGER UA YES; Urine Blood Negative (Negative); Urine Ketones Negative (Negative); Urine Protein Negative (Neg-Trace)
[2024-02-22 14:52] LABS: Bacteria Urine Trace (None Seen); Hyaline Casts Urine 0-2 /LPF (0-2); RBC Urine 0-2 /HPF (0-2); Squamous Epithelial Cell Urine 0-2 /HPF (0-2); WBC Urine 21-50 /HPF (0-5)
== END 2024-02-22 14:38 | disposition home or self-care (01) ==
LOC: HO.LNP 14:37
PROVIDERS: Visit Provider Urology
DX: N39.0 Urinary tract infection, site not specified (principal)
CPT/HCPCS: 81001; 87086; 87088; 87186

== ENCOUNTER 2024-03-21 14:42 | Outpatient (REF) | payer OTHER, SELFPAY | END 2024-03-21 14:43 | disposition home or self-care (01) | LOC: HO.LNP 14:42 | PROVIDERS: Visit Provider Urology | DX: Z13.89 Encounter for screening for other disorder (principal) ==

== ENCOUNTER 2024-03-21 14:49 | Outpatient (REF) | payer OTHER, SELFPAY ==
[2024-03-21 15:09] LABS: Appearance Urine Clear; Color Urine Yellow; Glucose Urine UA Negative (Negative); Leukocyte Esterase Urine Moderate (2+) (Negative); Nitrite Urine Negative (Negative); Specific Gravity - Urine <= 1.005 (1.005-1.025); UMIC TRIGGER UA YES; Urine Blood Negative (Negative); Urine Ketones Negative (Negative); Urine Protein Negative (Neg-Trace)
[2024-03-21 15:24] LABS: Bacteria Urine 1+ (None Seen); Hyaline Casts Urine 0-2 /LPF (0-2); RBC Urine 0-2 /HPF (0-2); Squamous Epithelial Cell Urine 0-2 /HPF (0-2)
== END 2024-03-21 14:50 | disposition home or self-care (01) ==
LOC: HO.LAB 14:49
PROVIDERS: Visit Provider Urology
DX: N39.0 Urinary tract infection, site not specified (principal)
CPT/HCPCS: 81001; 87086; 87088; 87186

== ENCOUNTER → 2024-03-25 12:54 | Outpatient (BNVA) | payer OTHER, SELFPAY | PROVIDERS: PCP Internal Medicine; Visit Provider Urology ==

== ENCOUNTER 2024-04-16 12:01 | Outpatient (REF) | payer OTHER, SELFPAY ==
[2024-04-16 12:53] LABS: Appearance Urine Clear; Color Urine Dark Yellow; Glucose Urine UA Negative (Negative); Leukocyte Esterase Urine Small (1+) (Negative); Nitrite Urine Negative (Negative); PH 8.5 (5.0-9.0); Specific Gravity - Urine <= 1.005 (1.005-1.025); UMIC TRIGGER UA YES; Urine Blood Negative (Negative); Urine Ketones Negative (Negative); Urine Protein Negative (Neg-Trace)
[2024-04-16 13:05] LABS: Bacteria Urine None Seen (None Seen); Hyaline Casts Urine 0-2 /LPF (0-2); RBC Urine 0-2 /HPF (0-2); Squamous Epithelial Cell Urine 0-2 /HPF (0-2); WBC Urine 0-5 /HPF (0-5)
== END 2024-04-16 12:02 | disposition home or self-care (01) ==
LOC: HO.LNP 12:01
PROVIDERS: Visit Provider Urology
DX: N39.0 Urinary tract infection, site not specified (principal); N32.89 Other specified disorders of bladder
CPT/HCPCS: 81001; 87086; 87088; 87186

== ENCOUNTER 2024-04-25 15:12 | Emergency (ER) | payer OTHER, SELFPAY ==
[2024-04-25 15:28] VITALS: BP 111/64; PULSE 69; RESP 17; TEMP 36.3; O2SAT 95; BMI 21.8
--- NOTE | 2024-04-25 15:30 | ED_ITS ---
HPI - General Adult General Chief complaint: Urogenital-Female Stated complaint: uti ? Related Data Home Medications ?Medication ?Instructions ?Recorded ?Confirmed citalopram 10 mg tablet 10 mg PO DAILY 08/07/21 08/15/22 citalopram 20 mg tablet 20 mg PO DAILY 08/07/21 08/15/22 gabapentin 100 mg capsule 100 mg PO TID 08/07/21 08/15/22 gabapentin 600 mg tablet 600 mg PO TID 08/07/21 08/15/22 levothyroxine 50 mcg capsule 50 mcg PO DAILY 08/07/21 08/15/22 polyethylene glycol 3350 17 17 g PO DAILY 08/07/21 08/15/22 gram/dose oral powder (Miralax) sennosides 17.2 mg tablet 17.2 mg PO DAILY 08/07/21 08/15/22 Previous Rx's ?Medication ?Instructions ?Recorded oxybutynin chloride 5 mg tablet 5 mg PO DAILY #90 tabs 04/13/23 ascorbic acid (vitamin C) 1,000 mg 1 g PO DAILY 90 days #90 caps 11/10/23 capsule estradiol 10 mcg vaginal tablet 10 mcg vaginal 2XW UTI suppression 11/10/23 (Vagifem) 90 days #26 tabs levofloxacin 500 mg tablet 500 mg PO Q24H 3 days #3 tabs 02/18/24 fosfomycin tromethamine 3 gram 1 packet PO .weekly UTI 03/07/24 oral packet suppression 6 weeks #6 ea doxycycline monohydrate 100 mg 100 mg PO BID 7 days #14 caps 03/30/24 capsule levofloxacin 500 mg tablet 500 mg PO DAILY 7 days #7 tabs 03/30/24 fosfomycin tromethamine 3 gram 3 g PO Q3D UTI 9 days #3 ea 04/19/24 oral packet fosfomycin tromethamine 3 gram 1 packet PO .weekly UTI 04/26/24 oral packet suppression 12 weeks #12 ea Allergies Allergy/AdvReac Type Severity Reaction Status Date / Time nitrofurantoin Allergy Swelling Verified 04/25/24 15:39 [From Macrobid] Penicillins Allergy Unknown Verified 04/25/24 15:39 Sulfa (Sulfonamide Allergy Unknown Verified 04/25/24 15:39 Antibiotics) sulfamethoxazole Allergy Swelling Verified 04/25/24 15:39 [From Bactrim] trimethoprim [From Bactrim] Allergy Swelling Verified 04/25/24 15:39 [facility] Past Medical History Medical History C5-C7 incomplete quadriplegia (~10/2015) Neurogenic bladder Social History Social History Alcohol intake: current Patient Tobacco Use Status: Former Tobacco user Advance Directives: No Advance Directives Information Provided: No Do you have a plan to hurt others: No Plan Physical Exam ED Vital Signs: Vital Signs - 24 hr 04/25/24 15:28 Temperature 97.3 F Pulse Rate 69 Respiratory Rate 17 Blood Pressure 111/64 Pulse Oximetry 95 Oxygen Delivery Method Room Air BMI result Body Mass Index 21.8 Course Course Course Narrative: This is an RME: Additional HPI, ROS, PE not included below will be deferred to primary provider. RME assessment and note performed by: Adelaide Stone PA-C This is a [id number]-female with a hx of neurogenic bladder with indwelling sam catheter seen by Dr. Calvo, Spinal injury C5-7, who presents to the ER with complaints of chronic UTI. She states that she has been on ABX for many months - currently on fosfomycin. Reports that she has had hematuria, suprapubic pain which started yesterday. She has been on antibiotics recurrently for an infection that has not been able to clear. Plan: Labs, UA, further ER evaluation needed. Reevaluation(s) Reevaluation #1: Patient left without completing treatment. Medical Decision Making Lab Data 04/25/24 15:50 04/25/24 15:50 Labs: Lab Results 04/25/24 04/25/24 Range/Units 15:50 19:54 WBC 4.8 (4.8-10.8) X10*3/uL RBC 4.10 L (4.20-5.50) X10*6/uL Hgb 12.2 (12.0-16.0) g/dl Hct 37.1 (37.0-47.0) % MCV 90.5 (80.0-98.0) fL MCH 29.8 (27.0-33.0) pg MCHC 32.9 (31.0-35.0) g/dl RDW 14.4 (11.0-16.0) % Plt Count 267 (160-400) X10*3/uL MPV 8.2 L (9.4-12.3) fL Immature Gran % (Auto) 0.2 (0.0-0.4) % Neut % (Auto) 63.3 (45-73) % Lymph % (Auto) 24.0 (20-40) % [place] % (Auto) 8.8 (2-11) % Eos % (Auto) 3.1 (0-4) % Baso % (Auto) 0.6 (0-2) % Lymph # (Auto) 1.2 (1.2-4.9) X10*3/uL [place] # (Auto) 0.4 (0.1-1.2) X10*3/uL Eos # (Auto) 0.2 (0.0-0.4) X10*3/uL Baso # (Auto) 0.0 (0.0-0.2) X10*3/uL Abs Immat Gran (auto) 0.01 (0.00-0.03) X10*3/uL Absolute Neuts (auto) 3.0 (2.0-8.3) x10*3/uL Absolute Nucleated RBC 0.000 (0.0-0.012) X10*3/uL Nucleated RBC % (auto) 0.0 (0.0-0.2) /100WBC Sodium 134 L (135-145) mmol/L Potassium 3.7 (3.3-5.1) mmol/L Chloride 98 (96-108) mmol/L Carbon Dioxide 25 (22-29) mmol/L Anion Gap 15 (12-20) BUN 9 (9-16) mg/dL Creatinine 0.76 (0.5-1.4) mg/dL Estim Creat Clear Calc 75.6 Estimated GFR > 60 Random Glucose 124 H (60-115) mg/dL Calcium 9.4 (8.4-10.2) mg/dL Magnesium 2.1 (1.6-2.6) mg/dL Total Bilirubin 0.3 (0.0-1.0) mg/dL Direct Bilirubin 0.1 (0.0-0.5) mg/dL AST 33 H (5-31) U/L ALT 22 (0-31) U/L Alkaline Phosphatase 81 (39-117) U/L Total Protein 6.8 (6.5-8.0) g/dL Albumin 3.9 (3.5-5.0) g/dL Lipase 27 (8-78) U/L Urine Color Yellow Urine Appearance Clear Urine pH 6.5 (5.0-9.0) Ur Specific [place] <= 1.005 (1.005-1.025) Urine Protein Negative (Neg-Trace) mg/dL Urine Glucose (UA) Negative (Negative) mg/dL Urine Ketones Negative (Negative) mg/dL Urine Blood Trace H (Negative) Urine Nitrite Negative (Negative) Ur Leukocyte Esterase Large (3+) H (Negative) Urine RBC 0-2 (0-2) /HPF Urine WBC 21-50 H (0-5) /HPF Ur Squamous Epith Cells 0-2 (0-2) /HPF Urine Bacteria 4+ (None Seen) Hyaline Casts 0-2 (0-2) /LPF Discharge Plan Discharge Clinical Impression: Hematuria Patient Disposition: Left W/O Completing Treatment Prescriptions: No Action ascorbic acid (vitamin C) 1,000 mg capsule 1 g PO DAILY 90 Days Qty: 90 1RF estradiol [Vagifem] 10 mcg tablet 10 mcg vaginal 2XW 90 Days Qty: 26 1RF levofloxacin 500 mg tablet 500 mg PO Q24H 3 Days Qty: 3 0RF Rx Instructions: 3 additional days of abx to complete 10 day total treatment course fosfomycin tromethamine 3 gram packet 1 packet PO .weekly 42 Days Qty: 6 0RF Rx Instructions: additional doses for UTI suppression levofloxacin 500 mg tablet 500 mg PO DAILY 7 Days Qty: 7 0RF doxycycline monohydrate 100 mg capsule 100 mg PO BID 7 Days Qty: 14 0RF fosfomycin tromethamine 3 gram packet 3 g PO Q3D 9 Days Qty: 3 0RF Rx Instructions: One dose (one packet) every 3 days fosfomycin tromethamine 3 gram packet 1 packet PO .weekly 84 Days Qty: 12 0RF gabapentin 600 mg tablet 600 mg PO TID gabapentin 100 mg capsule 100 mg PO TID citalopram 20 mg tablet 20 mg PO DAILY citalopram 10 mg tablet 10 mg PO DAILY sennosides 17.2 mg tablet 17.2 mg PO DAILY polyethylene glycol 3350 [Miralax] 17 gram/dose powder 17 g PO DAILY levothyroxine 50 mcg capsule 50 mcg PO DAILY oxybutynin chloride 5 mg tablet 5 mg PO DAILY Qty: 90 3RF Discharge Date/Time: 04/25/24 20:47
[2024-04-25 15:54] LABS: MANUAL DIFF FLAG NO
[2024-04-25 15:57] LABS: Basophils Percent Auto 0.6 % (0-2); Eosinophils Absolute Auto 0.2 X10*3/uL (0.0-0.4); Eosinophils Percent Auto 3.1 % (0-4); Hematocrit 37.1 % (37.0-47.0); Hemoglobin 12.2 g/dl (12.0-16.0); Imm Gran Abs Auto 0.01 X10*3/uL (0.00-0.03); Imm Gran Pct Auto 0.2 % (0.0-0.4); Lymphocytes Absolute Auto 1.2 X10*3/uL (1.2-4.9); Mean Corpuscular HGB Conc 32.9 g/dl (31.0-35.0); Mean Corpuscular Hemoglobin 29.8 pg (27.0-33.0); Mean Corpuscular Volume 90.5 fL (80.0-98.0); Mean Platelet Volume 8.2 fL (9.4-12.3); Monocytes Absolute Auto 0.4 X10*3/uL (0.1-1.2); Monocytes Percent Auto 8.8 % (2-11); Neutrophils Percent Auto 63.3 % (45-73); Platelet Count 267 X10*3/uL (160-400); Red Cell Distribution Width 14.4 % (11.0-16.0); White Blood Count 4.8 X10*3/uL (4.8-10.8)
[2024-04-25 16:11] LABS: Alanine Aminotransferase 22 U/L (0-31); Albumin Level 3.9 g/dL (3.5-5.0); Alkaline Phosphatase 81 U/L (39-117); Anion Gap 15 (12-20); Aspartate Amino Transferase 33 U/L (5-31); Bilirubin Direct 0.1 mg/dL (0.0-0.5); Bilirubin Total 0.3 mg/dL (0.0-1.0); Blood Urea Nitrogen 9 mg/dL (9-16); Calcium 9.4 mg/dL (8.4-10.2); Carbon Dioxide 25 mmol/L (22-29); Chloride 98 mmol/L (96-108); Creatinine Clr Calc Pharmacy 75.6; Estimated Glomerular Filt Rate > 60; Glucose Random 124 mg/dL (60-115); Lipase 27 U/L (8-78); Magnesium 2.1 mg/dL (1.6-2.6); Potassium 3.7 mmol/L (3.3-5.1); Sodium 134 mmol/L (135-145); Total Protein 6.8 g/dL (6.5-8.0)
[2024-04-25 20:12] LABS: Appearance Urine Clear; Color Urine Yellow; Glucose Urine UA Negative (Negative); Leukocyte Esterase Urine Large (3+) (Negative); Nitrite Urine Negative (Negative); PH 6.5 (5.0-9.0); Specific Gravity - Urine <= 1.005 (1.005-1.025); UMIC TRIGGER UACC YES; Urine Blood Trace (Negative); Urine Ketones Negative (Negative); Urine Protein Negative (Neg-Trace)
[2024-04-25 20:16] LABS: Bacteria Urine 4+ (None Seen); Hyaline Casts Urine 0-2 /LPF (0-2); RBC Urine 0-2 /HPF (0-2); Squamous Epithelial Cell Urine 0-2 /HPF (0-2); UACC Culture Trigger YES; WBC Urine 21-50 /HPF (0-5)
== END 2024-04-25 20:47 | disposition left against medical advice (07) ==
LOC: HO.ED 20:47
PROVIDERS: Physician Assistant Medical; Emergency Provider Emergency Medicine; PCP Internal Medicine
DX: R31.9 Hematuria, unspecified (principal); Z79.899 Other long term (current) drug therapy
CPT/HCPCS: 36415; 80048; 80076; 81001; 81003; 83690; 83735; 85025; 87086; 87088; 87186; 99282; 99283

== ENCOUNTER → 2024-05-02 14:31 | Outpatient (BNVA) | payer OTHER, SELFPAY | PROVIDERS: PCP Internal Medicine; Visit Provider Urology | DX: N31.9 Neuromuscular dysfunction of bladder, unspecified (principal); N32.89 Other specified disorders of bladder; N39.0 Urinary tract infection, site not specified; Z97.8 Presence of other specified devices | CPT/HCPCS: 51700; J0665; J1644; J2919 ==

== ENCOUNTER → 2024-05-23 13:54 | Outpatient (BNVA) | payer OTHER, SELFPAY | PROVIDERS: PCP Internal Medicine; Visit Provider Urology | DX: N18.9 Chronic kidney disease, unspecified (principal); N32.89 Other specified disorders of bladder | CPT/HCPCS: 51700; J0665; J1644; J2919 ==

== ENCOUNTER → 2024-05-24 13:50 | Outpatient (BNVA) | payer OTHER, SELFPAY | PROVIDERS: PCP Internal Medicine; Visit Provider Urology | DX: N31.9 Neuromuscular dysfunction of bladder, unspecified (principal); N32.89 Other specified disorders of bladder | CPT/HCPCS: 51700; J0665; J1644; J2919 ==

== ENCOUNTER → 2024-05-25 14:44 | Outpatient (BNVA) | payer OTHER, SELFPAY | PROVIDERS: PCP Internal Medicine; Visit Provider Urology | DX: N31.9 Neuromuscular dysfunction of bladder, unspecified (principal); N32.89 Other specified disorders of bladder | CPT/HCPCS: 51700 ==

== ENCOUNTER → 2024-05-26 13:55 | Outpatient (BNVA) | payer OTHER, SELFPAY | PROVIDERS: PCP Internal Medicine; Visit Provider Urology | DX: N31.9 Neuromuscular dysfunction of bladder, unspecified (principal); N32.89 Other specified disorders of bladder | CPT/HCPCS: 51700; J0665; J1644; J2919 ==

== ENCOUNTER 2024-05-27 13:35 | Outpatient (AMB) | payer OTHER, SELFPAY ==
--- NOTE | 2024-05-27 13:45 | AM.OFFVISNUR ---
Intake Visit Reasons: IC instillation #5 Allergies nitrofurantoin [From Macrobid] Allergy (Verified 04/25/24 15:39) Swelling Penicillins Allergy (Verified 04/25/24 15:39) Unknown Sulfa (Sulfonamide Antibiotics) Allergy (Verified 04/25/24 15:39) Unknown sulfamethoxazole [From Bactrim] Allergy (Verified 04/25/24 15:39) Swelling trimethoprim [From Bactrim] Allergy (Verified 04/25/24 15:39) Swelling Office Procedures Bladder/Catheter Procedure Details: Patient presents to office for IC instillation #5. Instillation not done as patient reporting intense burning in bladder. UA and culture sample obtained. Additional procedure code (CPT) needed Results AMB Urinalysis, Automated UA Leukoctes 500 Chucky/uL Last Edit by Felix Sherman LPN on 05/27/24 14:38 UA Nitrite Negative Last Edit by Felix Sherman LPN on 05/27/24 14:38 UA Urobilinogen 0.2 mg/dL Last Edit by Felix Sherman LPN on 05/27/24 14:38 UA Protein 0 mg/dL Last Edit by Felix Sherman LPN on 05/27/24 14:38 UA pH 7.0 Last Edit by Felix Sherman LPN on 05/27/24 14:38 UA Blood 0 Ronald/uL Last Edit by Felix Sherman LPN on 05/27/24 14:38 UA Specific [place] 1.005 Last Edit by Felix Sherman LPN on 05/27/24 14:38 UA Ketone Negative Last Edit by Felix Sherman LPN on 05/27/24 14:38 UA Bilirubin 0 mg/dL Last Edit by Felix Sherman LPN on 05/27/24 14:38 UA Glucose 0 mg/dL Last Edit by Felix Sherman LPN on 05/27/24 14:38 Assessment & Plan Assessment & Plan Orders: Orders Urine Culture Today N39.0 - Urinary tract infection, site not specified AMB Bladder/Catheter Procedure Today N31.9 - Neuromuscular dysfunction of bladder, unspecified, N32.89 - Other specified disorders of bladder AMB Urinalysis Automated Today N39.0 - Urinary tract infection, site not specified
== END 2024-05-27 14:59 | disposition home or self-care (01) ==
PROVIDERS: PCP Internal Medicine; Visit Provider Urology
DX: N39.0 Urinary tract infection, site not specified (principal)

== ENCOUNTER 2024-05-27 13:35 | Outpatient (REF) | payer OTHER, SELFPAY | END 2024-05-27 13:36 | disposition home or self-care (01) | LOC: HO.LNP 13:35 | PROVIDERS: PCP Internal Medicine; Visit Provider Urology | DX: N39.0 Urinary tract infection, site not specified (principal) | CPT/HCPCS: 51700; 81003; 87086; 87088; 87186; J0665; J1644; J2919 ==

== ENCOUNTER 2024-05-31 14:48 | Outpatient (AMB) | payer OTHER, SELFPAY ==
--- NOTE | 2024-05-31 14:48 | A.OFFVIS_ITS ---
Intake Visit Reasons: 6m follow up Intake Note: Patient is present for Telephone follow up Allergies nitrofurantoin [From Macrobid] Allergy (Verified 06/11/24 19:20) Swelling Penicillins Allergy (Verified 06/11/24 19:20) Unknown Sulfa (Sulfonamide Antibiotics) Allergy (Verified 06/11/24 19:20) Unknown sulfamethoxazole [From Bactrim] Allergy (Verified 06/11/24 19:20) Swelling trimethoprim [From Bactrim] Allergy (Verified 06/11/24 19:20) Swelling HPI Comments Details: Erica is a pleasant female. She is a patient of Dr. Reyes. She is seen for the following urologic conditions. 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 Baseline oxybutynin 5 mg for spasm Has been on methenamine 1 g for suppression however causes diarrhea Will use it when has UTI type symptoms Again discussed today possible use of Macrobid however has allergy to nitrofurantoin Reviewed: Renal US?12/08/2022-- Kidneys: WNL, No renal calculi visualized Continue surveillance Tele health visits work better given her restriction from attending office [facility] Medical History C5-C7 incomplete quadriplegia (~10/2015) Neurogenic bladder Social History Household Members: Family Housing: House Do you presently have visiting nurse or other home services: Yes (AUTOMATION MACHINE BUILDER's) Alcohol intake: current Patient Tobacco Use Status: Former Tobacco user service: Yes Review of Systems Const All systems reviewed & are unremarkable except as noted in HPI and below Reports no additional complaints Resp Reports no additional complaints GI Reports no additional complaints Reports as per HPI Musc Reports no additional complaints Physical Exam Telemedicine evaluation Appropriate responses Regular breathing rate and rhythm HEENT Head: Yes normal to inspection Ears: hearing grossly normal bilaterally Eyes General: appearance normal, both eyes and all related structures Neck Neck: Yes normal visual inspection Chest Chest palpation & inspection: normal inspection of the chest Resp Effort & Inspection: normal respiratory effort and able to speak in complete sentences Telehealth Telehealth Location of provider rendering services: practice address Location of patient: address on file Patient Identification confirmed using: Name, : Yes Telehealth method: video Patient verbally consented to treatment: Yes Patient verbally consented to billing insurance company: Yes Patient informed of any privacy concerns related to visit: Yes Assessment & Plan Assessment & Plan (1) Chronic indwelling Ghotra catheter: Code(s): Z97.8 - Presence of other specified devices Category: Medical (2) Neurogenic bladder: Code(s): N31.9 - Neuromuscular dysfunction of bladder, unspecified Category: Medical Plan Six-month follow-up Patient Instructions: Imaging studies, laboratory and physical exam results were discussed and reviewed in detail. No major barriers to patient understanding were identified. An opportunity to ask questions regarding the treatment plan was provided. All questions were answered. The patient expressed understanding and agreement with the above treatment plan. The patient is aware they should contact our office by phone for worsening of their current condition or the appearance of new urologic symptoms. Compliance is encouraged with any medications and followup testing that is ordered. It is a privilege to participate in the urologic care of your patient. If you have any questions or concerns regarding treatment for the above conditions, or other urologic issues, please do not hesitate to contact me. The office telephone contact is [phone]. This note is constructed using voice recognition software. While every effort has been made to ensure accuracy closing specialist errors may have been included. Yours sincerely, Dr Nelson Calvo MD, [facility] - Urology Providers of Expert, Compassionate Care for the Genitourinary System Coding Level of Care Code Tele Est Pt Level 3 (51226) Diagnoses Chronic indwelling Ghotra catheter Z97.8 Neurogenic bladder N31.9
== END 2024-05-31 16:30 | disposition home or self-care (01) ==
LOC: HO.HUSH 14:48
PROVIDERS: PCP Internal Medicine; Visit Provider Urology
DX: Z97.8 Presence of other specified devices (principal); N31.9 Neuromuscular dysfunction of bladder, unspecified
CPT/HCPCS: 99213

== ENCOUNTER → 2024-05-31 14:48 | Outpatient (BNVA) | payer OTHER, SELFPAY | PROVIDERS: PCP Internal Medicine; Visit Provider Urology ==

== ENCOUNTER 2024-06-09 14:40 | Outpatient (AMB) | payer OTHER, SELFPAY ==
--- NOTE | 2024-06-09 14:41 | MHC.OFFVIS ---
Intake Visit Reasons: follow up Intake Note: Patient is present for Telephone follow up Urology Med: Vitamin C, Estradiol, Myrbetriq Allergies nitrofurantoin [From Macrobid] Allergy (Verified 04/25/24 15:39) Swelling Penicillins Allergy (Verified 04/25/24 15:39) Unknown Sulfa (Sulfonamide Antibiotics) Allergy (Verified 04/25/24 15:39) Unknown sulfamethoxazole [From Bactrim] Allergy (Verified 04/25/24 15:39) Swelling trimethoprim [From Bactrim] Allergy (Verified 04/25/24 15:39) Swelling HPI Comments Details: Erica is a pleasant female. She is a patient of Dr. Reyes. She is seen for the following urologic conditions. 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 Neurogenic bladder managed with SP tube 18 Swiss Tube changed every 3 weeks by PYROMETER MECHANIC Baseline oxybutynin 5 mg for spasm Has been on methenamine 1 g for suppression however causes diarrhea Will use it when has UTI type symptoms Again discussed today possible use of Macrobid however has allergy to nitrofurantoin Reviewed: Renal US?12/08/2022-- Kidneys: WNL, No renal calculi visualized Continue surveillance Tele health visits work better given her restriction from attending office [facility] Medical History C5-C7 incomplete quadriplegia (~10/2015) Neurogenic bladder Social History Alcohol intake: current Patient Tobacco Use Status: Former Tobacco user Review of Systems Const All systems reviewed & are unremarkable except as noted in HPI and below Reports no additional complaints Resp Reports no additional complaints GI Reports no additional complaints Reports as per HPI Musc Reports no additional complaints Physical Exam Telemedicine evaluation Appropriate responses Regular breathing rate and rhythm HEENT Head: Yes normal to inspection Ears: hearing grossly normal bilaterally Eyes General: appearance normal, both eyes and all related structures Neck Neck: Yes normal visual inspection Chest Chest palpation & inspection: normal inspection of the chest Resp Effort & Inspection: normal respiratory effort and able to speak in complete sentences Telehealth Telehealth Telehealth Platform: rankur Location of provider rendering services: practice address Location of patient: address on file Patient Identification confirmed using: Name, : Yes Telehealth method: video Patient verbally consented to treatment: Yes Patient verbally consented to billing insurance company: Yes Patient informed of any privacy concerns related to visit: Yes Minutes spent on Phone/Video with Pt.: 15 Assessment & Plan Assessment & Plan (1) Chronic UTI: Code(s): N39.0 - Urinary tract infection, site not specified Category: Medical (2) Neurogenic bladder: Code(s): N31.9 - Neuromuscular dysfunction of bladder, unspecified Category: Medical Plan Six-month follow-up Medications: Refilled levofloxacin 500 mg PO DAILY 5 days 5 tabs 0RF linezolid (Zyvox) 600 mg PO BID 5 days 10 tabs 0RF Patient Instructions: Imaging studies, laboratory and physical exam results were discussed and reviewed in detail. No major barriers to patient understanding were identified. An opportunity to ask questions regarding the treatment plan was provided. All questions were answered. The patient expressed understanding and agreement with the above treatment plan. The patient is aware they should contact our office by phone for worsening of their current condition or the appearance of new urologic symptoms. Compliance is encouraged with any medications and followup testing that is ordered. It is a privilege to participate in the urologic care of your patient. If you have any questions or concerns regarding treatment for the above conditions, or other urologic issues, please do not hesitate to contact me. The office telephone contact is [phone]. This note is constructed using voice recognition software. While every effort has been made to ensure accuracy color printer operator errors may have been included. Yours sincerely, Dr Nelson Calvo MD, [facility] - Urology Providers of Expert, Compassionate Care for the Genitourinary System Coding Level of Care Code Tele Est Pt Level 3 (62135) Diagnoses Chronic UTI N39.0 Neurogenic bladder N31.9
== END 2024-06-09 15:34 | disposition home or self-care (01) ==
LOC: HO.HUSH 14:40
PROVIDERS: PCP Internal Medicine; Visit Provider Urology
DX: N39.0 Urinary tract infection, site not specified (principal); N31.9 Neuromuscular dysfunction of bladder, unspecified
CPT/HCPCS: 99213

== ENCOUNTER → 2024-06-09 14:40 | Outpatient (BNVA) | payer OTHER, SELFPAY | PROVIDERS: PCP Internal Medicine; Visit Provider Urology ==

== ENCOUNTER 2024-06-11 19:08 | Inpatient (IN) | payer OTHER, SELFPAY ==
[2024-06-11 19:20] VITALS: BP 124/66; PULSE 56; RESP 16; TEMP 36.3; O2SAT 98; BMI 22.7
--- NOTE | 2024-06-11 19:28 | ED_ITS ---
HPI - Female Genitourinary General Chief complaint: Urogenital-Female Stated complaint: UTI? Time Seen by Provider: 06/11/24 21:04 Source: patient Mode of arrival: ambulatory Limitations: no limitations History of Present Illness ED Provider: Dr. Chrissy Cristobal HPI Narrative: Patient comes to the emergency room complaining of suprapubic pressure/discomfort and flank pain more so on the right. Patient states that she is paraplegic but she can still feel discomfort and pain. Patient states that she is known to have bladder spasms but what she is feeling is not a spasm. Patient states that for about a year, she and her urologist Dr. Calvo have been trying to treat a UTI. Patient recently completed 2 cycles of antibiotics including linezolid and levofloxacin. Patient states that this combination made her feel significantly sick, nauseous and now she has loose stool. Patient denies watery diarrhea. Patient denies fever but no chills. Related Data Home Medications ?Medication ?Instructions ?Recorded ?Confirmed citalopram 10 mg tablet 10 mg PO DAILY 08/07/21 08/15/22 citalopram 20 mg tablet 20 mg PO DAILY 08/07/21 08/15/22 gabapentin 100 mg capsule 100 mg PO TID 08/07/21 08/15/22 gabapentin 600 mg tablet 600 mg PO TID 08/07/21 08/15/22 levothyroxine 50 mcg capsule 50 mcg PO DAILY 08/07/21 08/15/22 polyethylene glycol 3350 17 17 g PO DAILY 08/07/21 08/15/22 gram/dose oral powder (Miralax) sennosides 17.2 mg tablet 17.2 mg PO DAILY 08/07/21 08/15/22 Previous Rx's ?Medication ?Instructions ?Recorded oxybutynin chloride 5 mg tablet 5 mg PO DAILY #90 tabs 04/13/23 ascorbic acid (vitamin C) 1,000 mg 1 g PO DAILY 90 days #90 caps 11/10/23 capsule estradiol 10 mcg vaginal tablet 10 mcg vaginal 2XW UTI suppression 11/10/23 (Vagifem) 90 days #26 tabs levofloxacin 500 mg tablet 500 mg PO Q24H 3 days #3 tabs 02/18/24 fosfomycin tromethamine 3 gram 1 packet PO .weekly UTI 03/07/24 oral packet suppression 6 weeks #6 ea doxycycline monohydrate 100 mg 100 mg PO BID 7 days #14 caps 03/30/24 capsule levofloxacin 500 mg tablet 500 mg PO DAILY 7 days #7 tabs 03/30/24 fosfomycin tromethamine 3 gram 3 g PO Q3D UTI 9 days #3 ea 04/19/24 oral packet fosfomycin tromethamine 3 gram 1 packet PO .weekly UTI 04/26/24 oral packet suppression 12 weeks #12 ea mirabegron 25 mg tablet,extended 25 mg PO DAILY 30 days #30 tabs 05/26/24 release 24 hr (Myrbetriq) levofloxacin 500 mg tablet 500 mg PO DAILY 5 days #5 tabs 06/09/24 linezolid 600 mg tablet (Zyvox) 600 mg PO BID 5 days #10 tabs 06/09/24 Allergies Allergy/AdvReac Type Severity Reaction Status Date / Time nitrofurantoin Allergy Swelling Verified 06/11/24 19:20 [From Macrobid] Penicillins Allergy Unknown Verified 06/11/24 19:20 Sulfa (Sulfonamide Allergy Unknown Verified 06/11/24 19:20 Antibiotics) sulfamethoxazole Allergy Swelling Verified 06/11/24 19:20 [From Bactrim] trimethoprim [From Bactrim] Allergy Swelling Verified 06/11/24 19:20 Review of Systems 2 Review of Systems: Constitutional : No Weight loss, No Fever, No Chills, No Night Sweats, No Fatigue, No Malaise ENT/Mouth : No Hearing loss, No Ear Pain, No Nasal Congestion, No Sinus Pain, No Hoarseness, No sore throat, No Rhinorrhea, No Swallowing Difficulty Eyes: No Eye Pain, No Swelling, No Redness, No Foreign Body, No Discharge, No Vision Changes Cardiovascular : No Chest Pain, No SOB, No Dyspnea on Exertion, No Orthopnea, No Edema, No Palpitations Respiratory : No Cough, No Sputum, No Wheezing, No Smoke Exposure, No Dyspnea Gastrointestinal : No Nausea, No Vomiting, complaining of having a combination of diarrhea and loose stool, No Constipation, No abdominal Pain, No Hematochezia, No Melena Genitourinary : Patient has a suprapubic catheter, patient complaining of suprapubic discomfort which is unusual for her unless she has a UTI and also flank pain bilaterally but more noticeably on the right Musculoskeletal : No joint pain, No Myalgias, No Joint Swelling Skin : No Skin Lesions, No rash Neuro : No Weakness, No Numbness, No Paresthesias, No Loss of Consciousness, No Dizziness, No Headache Psych : No Anxiety/Panic, No Depression, No SI/HI/AH/VH, No Social Issues, Heme/Lymph: No Bruising, No Bleeding,No Lymphadenopathy Endocrine : No Polyuria, No Polydipsia, No Temperature Intolerance [facility] Past Medical History Medical History C5-C7 incomplete quadriplegia (~10/2015) Neurogenic bladder Social History Social History Alcohol intake: current Patient Tobacco Use Status: Former Tobacco user Smoked in Last 30 Days: No Use of substances other than those prescribed or required for medical reasons: No Advance Directives: No Advance Directives Information Provided: No Do you have a plan to hurt others: No Plan Patient : No Physical Exam 2 Vital Signs: Vital Signs: Last Vital Signs Temp 96.3 F L 06/11/24 20:00 Pulse 50 06/11/24 20:00 Resp 16 06/11/24 20:00 BP 130/79 06/11/24 20:00 Pulse Ox 99 06/11/24 20:00 O2 Del Method Room Air 06/11/24 20:00 BMI result Body Mass Index 22.7 Const: Other: Appearance: Alert. Oriented X3. No acute distress. Eyes: Pupils equal, round and reactive to light. ENT: Pharynx normal. Neck: Normal inspection. Neck supple. No lymph nodes noted. No crepitus CVS: Normal heart rate and rhythm. Pulses normal. Normal S1 and S2 Respiratory: No respiratory distress. Breath sounds normal. No Wheezing. No rales Abdomen: Soft and nontender. No rigidity. No distention. Skin: Skin warm and dry. Normal skin color. Normal skin turgor. Extremities: Wheelchair-bound, unable to move chronically lower extremities Neuro: Oriented X 3. No motor deficit. No sensory deficit. Moving all extremities. No slurred speech. CN 2 through 12 grossly intact Psych: calm, cooperative, normal affect Course Course Course Narrative: RME performed by Michelle Ca PA-C. Patient is a 63 year old assigned female at presenting to the emergency department with abdominal pain. Patient states that she has been having recurrent UTIs and been given multiple oral medications and it isn't working so the network operations center engineer urologist told you to come here. Detailed physical exam and review of systems are deferred to the program clinician. Labs ordered. Patient placed back in the waiting room pending room availability and results. Medical Decision Making Medical Decision Making [facility] Narrative: After reviewing the patient's chart, seems that patient is allergic to several medications in is resistant to many antibiotics. Patient is even resistant to Merrem pending. Patient is currently on levofloxacin which she is resistant to. Options for treatment include gentamicin. From previous microbiology urine results, patient may be sensitive to cephalosporins. Cefepime does cover Pseudomonas., -I discussed the above-mentioned with Dr. Cornejo, we will see her with cefepime, tomorrow the patient may need an infectious disease consult. -patient does not have any fever, no episodes of hypotension. Per patient she chronically has a lower temperature. At this time, 22:21, sepsis is not suspected Differential Diagnosis Differential Diagnoses: The differential diagnosis associated with the presentation includes (Musculoskeletal pain, pyelonephritis, UTI, ESBL) Admission/Observation Consideration of admission/observation: Escalation of care including admission/observation considered Consult Healthcare Provider Management of the patient was discussed with: Hospitalist Lab Data [facility] Lab Attestation statement: I reviewed the patient's lab results. 06/11/24 19:50 06/11/24 19:50 Labs: Lab Results 06/11/24 06/11/24 Range/Units 19:50 20:37 WBC 5.0 (4.8-10.8) X10*3/uL RBC 3.68 L (4.20-5.50) X10*6/uL Hgb 11.1 L (12.0-16.0) g/dl Hct 33.5 L (37.0-47.0) % MCV 91.0 (80.0-98.0) fL MCH 30.2 (27.0-33.0) pg MCHC 33.1 (31.0-35.0) g/dl RDW 13.5 (11.0-16.0) % Plt Count 177 D (160-400) X10*3/uL MPV 8.5 L (9.4-12.3) fL Immature Gran % (Auto) 0.2 (0.0-0.4) % Neut % (Auto) 60.8 (45-73) % Lymph % (Auto) 23.4 (20-40) % Sunflower % (Auto) 11.8 H (2-11) % Eos % (Auto) 3.2 (0-4) % Baso % (Auto) 0.6 (0-2) % Lymph # (Auto) 1.2 (1.2-4.9) X10*3/uL Sunflower # (Auto) 0.6 (0.1-1.2) X10*3/uL Eos # (Auto) 0.2 (0.0-0.4) X10*3/uL Baso # (Auto) 0.0 (0.0-0.2) X10*3/uL Abs Immat Gran (auto) 0.01 (0.00-0.03) X10*3/uL Absolute Neuts (auto) 3.1 (2.0-8.3) x10*3/uL Absolute Nucleated RBC 0.000 (0.0-0.012) X10*3/uL Nucleated RBC % (auto) 0.0 (0.0-0.2) /100WBC Sodium 134 L (135-145) mmol/L Potassium 4.0 (3.3-5.1) mmol/L Chloride 97 (96-108) mmol/L Carbon Dioxide 28 (22-29) mmol/L Anion Gap 13 (12-20) BUN 8 L (9-16) mg/dL Creatinine 0.87 (0.5-1.4) mg/dL Estim Creat Clear Calc 66.0 Estimated GFR > 60 Random Glucose 97 (60-115) mg/dL Calcium 9.4 (8.4-10.2) mg/dL Total Bilirubin 0.4 (0.0-1.0) mg/dL AST 26 (5-31) U/L ALT 20 (0-31) U/L Alkaline Phosphatase 83 (39-117) U/L Total Protein 6.9 (6.5-8.0) g/dL Albumin 4.0 (3.5-5.0) g/dL Urine Color Dark Yellow Urine Appearance Cloudy Urine pH 6.0 (5.0-9.0) Ur Specific [place] <= 1.005 (1.005-1.025) Urine Protein Negative (Neg-Trace) mg/dL Urine Glucose (UA) Negative (Negative) mg/dL Urine Ketones Negative (Negative) mg/dL Urine Blood Negative (Negative) Urine Nitrite Positive H (Negative) Ur Leukocyte Esterase Large (3+) H (Negative) Urine RBC 0-2 (0-2) /HPF Urine WBC 21-50 H (0-5) /HPF Ur Squamous Epith Cells 0-2 (0-2) /HPF Urine Bacteria 4+ (None Seen) Hyaline Casts 0-2 (0-2) /LPF Critical Care Time Critical Care Time Critical Care Time: Yes Total Critical Care Time: 60 Attestation: I have personally provided critical care time. Time includes review of lab data, radiology results, discussion with consultants, and monitoring for potential decompensation. Intervention performed as documented. Discharge Plan Discharge Clinical Impression: Recurrent urinary tract infection Patient Disposition: Admitted As Inpatient Prescriptions: No Action ascorbic acid (vitamin C) 1,000 mg capsule 1 g PO DAILY 90 Days Qty: 90 1RF estradiol [Vagifem] 10 mcg tablet 10 mcg vaginal 2XW 90 Days Qty: 26 1RF levofloxacin 500 mg tablet 500 mg PO Q24H 3 Days Qty: 3 0RF Rx Instructions: 3 additional days of abx to complete 10 day total treatment course fosfomycin tromethamine 3 gram packet 1 packet PO .weekly 42 Days Qty: 6 0RF Rx Instructions: additional doses for UTI suppression levofloxacin 500 mg tablet 500 mg PO DAILY 7 Days Qty: 7 0RF doxycycline monohydrate 100 mg capsule 100 mg PO BID 7 Days Qty: 14 0RF fosfomycin tromethamine 3 gram packet 3 g PO Q3D 9 Days Qty: 3 0RF Rx Instructions: One dose (one packet) every 3 days fosfomycin tromethamine 3 gram packet 1 packet PO .weekly 84 Days Qty: 12 0RF gabapentin 600 mg tablet 600 mg PO TID gabapentin 100 mg capsule 100 mg PO TID citalopram 20 mg tablet 20 mg PO DAILY citalopram 10 mg tablet 10 mg PO DAILY sennosides 17.2 mg tablet 17.2 mg PO DAILY polyethylene glycol 3350 [Miralax] 17 gram/dose powder 17 g PO DAILY levothyroxine 50 mcg capsule 50 mcg PO DAILY oxybutynin chloride 5 mg tablet 5 mg PO DAILY Qty: 90 3RF mirabegron [Myrbetriq] 25 mg tablet extended release 24 hr 25 mg PO DAILY 30 Days Qty: 30 1RF levofloxacin 500 mg tablet 500 mg PO DAILY 5 Days Qty: 5 0RF linezolid [Zyvox] 600 mg tablet 600 mg PO BID 5 Days Qty: 10 0RF Print Language: Mongolian
[2024-06-11 19:55] LABS: MANUAL DIFF FLAG NO
[2024-06-11 20:00] VITALS: BP 130/79; PULSE 50; RESP 16; TEMP 35.7; O2SAT 99
[2024-06-11 20:07] LABS: Basophils Percent Auto 0.6 % (0-2); Eosinophils Absolute Auto 0.2 X10*3/uL (0.0-0.4); Eosinophils Percent Auto 3.2 % (0-4); Hematocrit 33.5 % (37.0-47.0); Hemoglobin 11.1 g/dl (12.0-16.0); Imm Gran Abs Auto 0.01 X10*3/uL (0.00-0.03); Imm Gran Pct Auto 0.2 % (0.0-0.4); Lymphocytes Absolute Auto 1.2 X10*3/uL (1.2-4.9); Lymphocytes Percent Auto 23.4 % (20-40); Mean Corpuscular HGB Conc 33.1 g/dl (31.0-35.0); Mean Corpuscular Hemoglobin 30.2 pg (27.0-33.0); Mean Platelet Volume 8.5 fL (9.4-12.3); Monocytes Absolute Auto 0.6 X10*3/uL (0.1-1.2); Monocytes Percent Auto 11.8 % (2-11); Neutrophils Absolute Auto 3.1 x10*3/uL (2.0-8.3); Neutrophils Percent Auto 60.8 % (45-73); Platelet Count 177 X10*3/uL (160-400); Red Blood Count 3.68 X10*6/uL (4.20-5.50); Red Cell Distribution Width 13.5 % (11.0-16.0)
[2024-06-11 20:11] LABS: Alanine Aminotransferase 20 U/L (0-31); Alkaline Phosphatase 83 U/L (39-117); Anion Gap 13 (12-20); Aspartate Amino Transferase 26 U/L (5-31); Bilirubin Total 0.4 mg/dL (0.0-1.0); Blood Urea Nitrogen 8 mg/dL (9-16); Calcium 9.4 mg/dL (8.4-10.2); Carbon Dioxide 28 mmol/L (22-29); Chloride 97 mmol/L (96-108); Estimated Glomerular Filt Rate > 60; Glucose Random 97 mg/dL (60-115); Sodium 134 mmol/L (135-145); Total Protein 6.9 g/dL (6.5-8.0)
[2024-06-11 20:45] LABS: Appearance Urine Cloudy; Color Urine Dark Yellow; Glucose Urine UA Negative (Negative); Leukocyte Esterase Urine Large (3+) (Negative); Nitrite Urine Positive (Negative); Specific Gravity - Urine <= 1.005 (1.005-1.025); UMIC TRIGGER UACC YES; Urine Blood Negative (Negative); Urine Ketones Negative (Negative); Urine Protein Negative (Neg-Trace)
[2024-06-11 20:48] LABS: Bacteria Urine 4+ (None Seen); Hyaline Casts Urine 0-2 /LPF (0-2); RBC Urine 0-2 /HPF (0-2); Squamous Epithelial Cell Urine 0-2 /HPF (0-2); UACC Culture Trigger YES; WBC Urine 21-50 /HPF (0-5)
--- NOTE | 2024-06-11 21:37 | PC.NURSE ---
report given to Julito RN
[2024-06-11 22:21] VITALS: BP 150/98; PULSE 58; RESP 16; TEMP 36.3; O2SAT 98
[2024-06-11 22:34] LABS: Lactic Acid 1.2 mmol/L (0.5-2.0)
[2024-06-11] MEDS: cefEPime HCl 1 GM in 0.9 % Sodium Chloride 50 ML IV (22:36)
[2024-06-11] MEDS: 0.9 % Sodium Chloride 1,000 ML 999 ML IVCONT (22:36)
--- NOTE | 2024-06-11 23:18 | PM.IMHP ---
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 Calvo, who recently prescribed a 5-day course of Levaquin and Zyvox on 06/02/24, repeated on 06/09/24. Despite these treatments, she continues to experience UTI symptoms, including bladder spasms, burning, and flank pain. She reports chills but no fever. Notably, she has been seen by Infectious Disease (Dr. Moreno) in the past, with the following guidance: She is likely colonized with organisms in the bladder. Do not treat with antibiotics unless there is hematuria, fever, sepsis concerns, or abdominal pain. No bacterial prophylaxis. Methenamine was ineffective. Do not routinely obtain urine cultures or urinalysis. Treat bladder spasms with antispasmodics. Today's urinalysis is positive, her WBC count is normal, and she is afebrile. The ED has started her on Cefepime. Review of Systems Review of Systems: Gen: no fever, but chills Resp: no sob, no cough CV: no chest, no NEAL, no leg edema GI: No n/v, no abd pain : bladder spasm, pain and flank pain Neuro: No confusion Yes all other systems are reviewed and are negative COUNT INCLUDES [facility] Medical History C5-C7 incomplete quadriplegia (~10/2015) Neurogenic bladder Social History Alcohol intake: current Patient Tobacco Use Status: Former Tobacco user Smoked in Last 30 Days: No Use of substances other than those prescribed or required for medical reasons: No Advance Directives: No Advance Directives Information Provided: No Do you have a plan to hurt others: No Plan Nutrition Risks: No Nutritional Risk Patient : No Meds Allergies Allergy/AdvReac Type Severity Reaction Status Date / Time nitrofurantoin Allergy Swelling Verified 06/11/24 19:20 [From Macrobid] Penicillins Allergy Unknown Verified 06/11/24 19:20 Sulfa (Sulfonamide Allergy Unknown Verified 06/11/24 19:20 Antibiotics) sulfamethoxazole Allergy Swelling Verified 06/11/24 19:20 [From Bactrim] trimethoprim [From Bactrim] Allergy Swelling Verified 06/11/24 19:20 Active Medications: Current Medications Sodium Chloride (Ns) 1,000 mls @ 999 mls/hr IVCONT .Q1H1M ONE Stop: 06/11/24 23:19 Last Admin: 06/11/24 22:36 Dose: 999 mls/hr Home Medications ?Medication ?Instructions ?Recorded ?Confirmed ?Last Taken ?Type citalopram 10 mg tablet 10 mg PO DAILY 08/07/21 08/15/22 Unknown History citalopram 20 mg tablet 20 mg PO DAILY 08/07/21 08/15/22 Unknown History gabapentin 100 mg capsule 100 mg PO TID 08/07/21 08/15/22 Unknown History gabapentin 600 mg tablet 600 mg PO TID 08/07/21 08/15/22 Unknown History levothyroxine 50 mcg capsule 50 mcg PO DAILY 08/07/21 08/15/22 Unknown History polyethylene glycol 3350 17 17 g PO DAILY 08/07/21 08/15/22 Unknown History gram/dose oral powder (Miralax) sennosides 17.2 mg tablet 17.2 mg PO DAILY 08/07/21 08/15/22 Unknown History Physical Exam Vital Signs and Narrative: Vital Signs: Last Vital Signs Temp 97.4 F 06/11/24 22:21 Pulse 58 06/11/24 22:21 Resp 16 06/11/24 22:21 BP 150/98 H 06/11/24 22:21 Pulse Ox 98 06/11/24 22:21 O2 Del Method Room Air 06/11/24 22:21 BMI result Body Mass Index 22.7 Results Labs 06/11/24 19:50 06/11/24 19:50 Labs: Laboratory Results - last 24 hr 06/11/24 06/11/24 06/11/24 19:50 20:37 22:17 MCV 91.0 MCH 30.2 MCHC 33.1 RDW 13.5 Plt Count 177 D MPV 8.5 L Immature Gran % (Auto) 0.2 Neut % (Auto) 60.8 Lymph % (Auto) 23.4 Coffee % (Auto) 11.8 H Eos % (Auto) 3.2 Baso % (Auto) 0.6 Lymph # (Auto) 1.2 Coffee # (Auto) 0.6 Eos # (Auto) 0.2 Baso # (Auto) 0.0 Abs Immat Gran (auto) 0.01 Absolute Neuts (auto) 3.1 Absolute Nucleated RBC 0.000 Nucleated RBC % (auto) 0.0 Anion Gap 13 Estim Creat Clear Calc 66.0 Estimated GFR > 60 Random Glucose 97 Lactic Acid 1.2 Calcium 9.4 Total Bilirubin 0.4 AST 26 ALT 20 Alkaline Phosphatase 83 Total Protein 6.9 Albumin 4.0 Urine Color Dark Yellow Urine Appearance Cloudy Urine pH 6.0 Ur Specific [place] <= 1.005 Urine Protein Negative Urine Glucose (UA) Negative Urine Ketones Negative Urine Blood Negative Urine Nitrite Positive H Ur Leukocyte Esterase Large (3+) H Urine RBC 0-2 Urine WBC 21-50 H Ur Squamous Epith Cells 0-2 Urine Bacteria 4+ Hyaline Casts 0-2 Assessment and Plan (1) Symptomatic urinary tract infection: Status: Acute Plan 63/F C5-C7 incomplete quadripleigic, recurrent UTI here with symptoamtic UTI with know resistant organisms Recurrent UTI -continue Cefepime for now -follow culture -ID consult Mood disorder -resume meds per med rec chronic constipation -bowel regimen dvt prophylaxis--lovneox full code at least 2 midnights admit for IV Abx for resitant UTI Quality Stroke Does the patient have a stroke diagnosis?: No VTE Prior VTE?: No VTE Risk Level:: Medical - moderate - high VTE Device Contraindication: Treatment Not Indicated VTE Drug Contraindication: N/A - Med Ordered
[2024-06-11 23:31] VITALS: BP 116/64; PULSE 61; RESP 16; TEMP 36.3; O2SAT 96
--- NOTE | 2024-06-11 23:44 | MHC.EDTECH ---
0000 rounding done ,vitals taken ,Patient belongings list done ,Patient comfortable ,watching television ,Call escalona within Pt reach .
[2024-06-12 03:18] VITALS: BMI 24.2
[2024-06-12 03:20] VITALS: BP 143/79; PULSE 61; RESP 18; TEMP 36; O2SAT 96
[2024-06-12 06:21] LABS: Alanine Aminotransferase 18 U/L (0-31); Albumin Level 3.5 g/dL (3.5-5.0); Alkaline Phosphatase 73 U/L (39-117); Anion Gap 12 (12-20); Aspartate Amino Transferase 22 U/L (5-31); Bilirubin Total 0.4 mg/dL (0.0-1.0); Blood Urea Nitrogen 6 mg/dL (9-16); Carbon Dioxide 26 mmol/L (22-29); Chloride 106 mmol/L (96-108); Creatinine Clr Calc Pharmacy 80.8; Estimated Glomerular Filt Rate > 60; Glucose Random 78 mg/dL (60-115); Potassium 3.9 mmol/L (3.3-5.1); Sodium 140 mmol/L (135-145); Total Protein 6.2 g/dL (6.5-8.0)
[2024-06-12 07:27] VITALS: BP 127/72; PULSE 64; RESP 18; TEMP 36.2; O2SAT 95
--- NOTE | 2024-06-12 09:26 | PHA.MEDREC ---
Addendum entered by Viktoria Kiser RPh 06/12/24 10:36: Reviewed by [facility]. Original Note: Pharmacy Consult ? Medication Reconciliation Pharmacy has completed the medication reconciliation. [facility] Zyvox and Levaquin.
[2024-06-12] MEDS: cefEPime HCl 1 GM in 0.9 % Sodium Chloride 50 ML IV ×2 (10:05→21:00)
[2024-06-12] MEDS: 0.9 % Sodium Chloride Flush 3 ML SYRINGE IVFLUSH ×3 (10:06→21:37)
[2024-06-12] MEDS: Enoxaparin Sodium 40 MG/0.4 ML SYRINGE SUBCUT (10:06)
[2024-06-12] MEDS: Gabapentin 600 MG TABLET PO ×3 (11:22→20:35)
[2024-06-12] MEDS: oxyBUTYnin chloride 5 MG TABLET PO (11:22)
[2024-06-12] MEDS: Levothyroxine Sodium 50 MCG TABLET PO (11:22)
[2024-06-12] MEDS: Acetaminophen 325 MG TABLET 650 MG PO ×2 (11:38→23:45)
--- NOTE | 2024-06-12 13:06 | P.PNIM_ITS ---
Subjective Subjective Date of Service: 06/12/24 Interval History: seen and evaluated feels better, reporting dysurea worried about bowel motion no other events Review of Systems Review of Systems: Yes all other systems are reviewed and are negative Physical Exam 2 Vital Signs: Vital Signs: Last Vital Signs Temp 97.1 F 06/12/24 07:27 Pulse 64 06/12/24 07:27 Resp 18 06/12/24 07:27 BP 127/72 06/12/24 07:27 Pulse Ox 95 06/12/24 07:27 O2 Del Method Room Air 06/12/24 07:27 BMI result Body Mass Index 24.2 Const: Other: Constitutional : Awake, interactive, not in distress Neck : Normal inspection, Supple Cardiovascular : RRR, no JVP, no lower extremity edema Respiratory : good bilateral air entry, no crackles, wheezes or rhonchi Gastrointestinal: soft, lax, Normal bowel sounds, Non tender Skin : Warm, Dry Neurological : Alert & oriented x3, paraplegic Objective Data Active Medications Acetaminophen (Acetaminophen 325 Mg Tablet) 650 mg PO Q6H PRN PRN Reason: Pain, Mild (Pain Scale 1-3), fever or headache Last Admin: 06/12/24 11:38 Dose: 650 mg Documented By: KAREEM Bisacodyl (Bisacodyl 10 Mg Supp.Rect) 10 mg LA DAILY [facility] Last Admin: 06/12/24 11:03 Dose: Not Given Documented By: KAREEM Non-Admin Reason: Patient Refused Calcium Carbonate (Calcium Carbonate 750 Mg Tab.Chew) 750 mg PO Q4H PRN PRN Reason: Heartburn Enoxaparin Sodium (Enoxaparin Sodium 40 Mg/0.4 Ml Syringe) 40 mg SUBCUT Q24H [facility] Last Admin: 06/12/24 10:06 Dose: 40 mg Documented By: KAREEM Escitalopram Oxalate (Escitalopram Oxalate 5 Mg Tablet) 5 mg PO BEDTIME [facility] Escitalopram Oxalate (Escitalopram Oxalate 10 Mg Tablet) 10 mg PO BEDTIME [facility] Gabapentin (Gabapentin 100 Mg Capsule) 100 mg PO BEDTIME [facility] Gabapentin (Gabapentin 600 Mg Tablet) 600 mg PO TID [facility] Last Admin: 06/12/24 11:22 Dose: 600 mg Documented By: KAREEM Cefepime HCl 1 gm/ Sodium (Chloride) 50 mls @ 100 mls/hr IV Q12H [facility] Last Infusion: 06/12/24 10:39 Dose: Infused Documented By: KAREEM Levothyroxine Sodium (Levothyroxine Sodium 50 Mcg Tablet) 50 mcg PO DAILY@0600 [facility] Last Admin: 06/12/24 11:22 Dose: 50 mcg Documented By: KAREEM Magnesium Hydroxide (Milk Of Magnesia 30 Ml Oral.Susp) 30 ml PO DAILY PRN PRN Reason: Constipation Melatonin (Melatonin 3 Mg Tablet) 6 mg PO BEDTIME PRN PRN Reason: Insomnia Ondansetron HCl (Ondansetron Hcl 4 Mg/2 Ml Vial) 4 mg IVPUSH Q8H PRN PRN Reason: Nausea and Vomiting Oxybutynin Chloride (Oxybutynin Chloride 5 Mg Tablet) 5 mg PO DAILY [facility] Last Admin: 06/12/24 11:22 Dose: 5 mg Documented By: KAREEM Polyethylene Glycol (Polyethylene Glycol 3350 17 Gm Powd.Pack) 17 gm PO DAILY [facility] Last Admin: 06/12/24 11:22 Dose: Not Given Documented By: KAREEM Non-Admin Reason: TAKES AT NIGHT Senna (Sennosides 8.6 Mg Tablet) 17.2 mg PO BEDTIME [facility] Sodium Chloride (0.9 % Sodium Chloride Flush 3 Ml Syringe) 3 ml IVFLUSH QSHIFT [facility] Last Admin: 06/12/24 10:06 Dose: 3 ml Documented By: KAREEM Labs 06/11/24 19:50 06/12/24 05:31 Labs: Laboratory Results - last 24 hr 06/11/24 06/11/24 06/11/24 19:50 20:37 22:17 MCV 91.0 MCH 30.2 MCHC 33.1 RDW 13.5 Plt Count 177 D MPV 8.5 L Immature Gran % (Auto) 0.2 Neut % (Auto) 60.8 Lymph % (Auto) 23.4 [place] % (Auto) 11.8 H Eos % (Auto) 3.2 Baso % (Auto) 0.6 Lymph # (Auto) 1.2 [place] # (Auto) 0.6 Eos # (Auto) 0.2 Baso # (Auto) 0.0 Abs Immat Gran (auto) 0.01 Absolute Neuts (auto) 3.1 Absolute Nucleated RBC 0.000 Nucleated RBC % (auto) 0.0 Hold Purple Top Anion Gap 13 Estim Creat Clear Calc 66.0 Estimated GFR > 60 Random Glucose 97 Lactic Acid 1.2 Calcium 9.4 Total Bilirubin 0.4 AST 26 ALT 20 Alkaline Phosphatase 83 Total Protein 6.9 Albumin 4.0 Urine Color Dark Yellow Urine Appearance Cloudy Urine pH 6.0 Ur Specific [place] <= 1.005 Urine Protein Negative Urine Glucose (UA) Negative Urine Ketones Negative Urine Blood Negative Urine Nitrite Positive H Ur Leukocyte Esterase Large (3+) H Urine RBC 0-2 Urine WBC 21-50 H Ur Squamous Epith Cells 0-2 Urine Bacteria 4+ Hyaline Casts 0-2 06/12/24 05:31 MCV MCH MCHC RDW Plt Count MPV Immature Gran % (Auto) Neut % (Auto) Lymph % (Auto) [place] % (Auto) Eos % (Auto) Baso % (Auto) Lymph # (Auto) [place] # (Auto) Eos # (Auto) Baso # (Auto) Abs Immat Gran (auto) Absolute Neuts (auto) Absolute Nucleated RBC Nucleated RBC % (auto) Hold Purple Top SEE NOTE Anion Gap 12 Estim Creat Clear Calc 80.8 Estimated GFR > 60 Random Glucose 78 Lactic Acid Calcium 9.0 Total Bilirubin 0.4 AST 22 ALT 18 Alkaline Phosphatase 73 Total Protein 6.2 L Albumin 3.5 Urine Color Urine Appearance Urine pH Ur Specific [place] Urine Protein Urine Glucose (UA) Urine Ketones Urine Blood Urine Nitrite Ur Leukocyte Esterase Urine RBC Urine WBC Ur Squamous Epith Cells Urine Bacteria Hyaline Casts Microbiology Microbiology Results: Microbiology 06/11/24 20:37 Urine Culture - Preliminary Urine Catheterized - Straight Catheter Culture in progress. Assessment and Plan (1) Symptomatic urinary tract infection: Status: Acute (2) Bladder spasm: Status: Acute (3) Chronic UTI: Status: Acute (4) Recurrent urinary tract infection: Status: Acute Plan 63/F C5-C7 incomplete quadripleigic, recurrent UTI here with symptoamtic UTI with know resistant organisms Recurrent UTI continue Cefepime follow culture ID consult Mood disorder resume meds per med rec chronic constipation bowel regimen dvt prophylaxis lovneox Will need overnight hospital stay for IV Abx for resitant UTI pending Cultures and ID consult Quality Stroke Does the patient have a stroke diagnosis?: No VTE Prior VTE?: No VTE Risk Level:: Medical - moderate - high VTE Device Contraindication: Treatment Not Indicated VTE Drug Contraindication: N/A - Med Ordered
--- NOTE | 2024-06-12 13:45 | MHC.CM.PN ---
PATIENT LIVES WITH HER SISTER AND HAS [id number] WORKER SERVICES IN THE HOME. SHE USES A POWER WHEEL CHAIR TO MOBILIZE AND HAS A TRANSPORT VAN. HCP ON FILE AT FACILITY. SHE IS ASKING TO BE TRANSFERRED TO THE [facility] WHERE SHE IS FAMILIAR WITH THE STAFF AND CARE. PROVIDER MADE AWARE. IMM 06/12 IN CHART.
[2024-06-12 15:34] VITALS: BP 131/60; PULSE 65; RESP 16; TEMP 36.2; O2SAT 94
[2024-06-12] MEDS: Gabapentin 100 MG CAPSULE PO (20:35)
[2024-06-12] MEDS: Sennosides 8.6 MG TABLET 17.2 MG PO (20:36)
[2024-06-12] MEDS: Escitalopram Oxalate 5 MG TABLET PO (20:36)
[2024-06-12] MEDS: Escitalopram Oxalate 10 MG TABLET PO (20:37)
[2024-06-12 23:42] VITALS: BP 153/69; PULSE 65; RESP 20; TEMP 36.3; O2SAT 93
[2024-06-13] MEDS: Levothyroxine Sodium 50 MCG TABLET PO (05:21)
[2024-06-13] MEDS: Acetaminophen 325 MG TABLET 650 MG PO (05:33)
[2024-06-13 06:18] LABS: Hematocrit 34.6 % (37.0-47.0); Hemoglobin 11.3 g/dl (12.0-16.0); Mean Corpuscular HGB Conc 32.7 g/dl (31.0-35.0); Mean Corpuscular Hemoglobin 29.5 pg (27.0-33.0); Mean Corpuscular Volume 90.3 fL (80.0-98.0); Mean Platelet Volume 8.7 fL (9.4-12.3); Platelet Count 174 X10*3/uL (160-400); Red Blood Count 3.83 X10*6/uL (4.20-5.50); Red Cell Distribution Width 13.6 % (11.0-16.0); White Blood Count 3.4 X10*3/uL (4.8-10.8)
[2024-06-13 06:34] LABS: Anion Gap 13 (12-20); Blood Urea Nitrogen 6 mg/dL (9-16); Calcium 9.2 mg/dL (8.4-10.2); Carbon Dioxide 26 mmol/L (22-29); Chloride 103 mmol/L (96-108); Creatinine Clr Calc Pharmacy 77.6; Estimated Glomerular Filt Rate > 60; Glucose Random 76 mg/dL (60-115); Potassium 4.2 mmol/L (3.3-5.1); Sodium 138 mmol/L (135-145)
[2024-06-13 07:27] VITALS: BP 132/79; PULSE 68; RESP 14; TEMP 36.7; O2SAT 90
[2024-06-13] MEDS: Gabapentin 600 MG TABLET PO ×2 (08:08→15:04)
[2024-06-13] MEDS: oxyBUTYnin chloride 5 MG TABLET PO (08:08)
[2024-06-13] MEDS: 0.9 % Sodium Chloride Flush 3 ML SYRINGE IVFLUSH ×2 (08:08→15:04)
[2024-06-13] MEDS: Enoxaparin Sodium 40 MG/0.4 ML SYRINGE SUBCUT (08:09)
[2024-06-13] MEDS: cefEPime HCl 1 GM in 0.9 % Sodium Chloride 50 ML IV ×2 (10:29→15:03)
--- NOTE | 2024-06-13 11:17 | MHC.CM.PN ---
Addendum entered by Divya Stallworth RN 06/13/24 14:09: Midline in place. [facility] RN scheduled to come to [facility] and meet patient/CRA at bedside for abx teach. Patient's CRA will transport home in van. No accepting VNA. [facility] will provide RN. Original Note: Per MD rounds patient not medically cleared for dc, awaiting final cx later today. DP: Home w/ 2 wks IV abx. Discussed w/ patient who states her CRA can assist w/ administration. Referrals to VNAs [facility], [facility]fusion: [facility]. CM will continue to follow.
--- NOTE | 2024-06-13 12:08 | MHC.CLN ---
NUTRITION CONSULT FOR POOR PO. VISITED WITH PATIENT. CURRENT INTAKE APPROX 75%. 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 DOES NOT WANT MNT SUPPLEMENT AT THIS TIME. SKIN WITH DONITA=12, WITH NO PRESSURE INJURIES REPORTED. RD TO MONITOR WEEKLY.
--- NOTE | 2024-06-13 12:23 | PM.DS ---
DS: Providers Provider Date of Service: 06/13/24 Date of admission: 06/11/24 23:38 Date of discharge: 06/13/24 Primary care physician: Marcia Reyes MD Consults: 06/12/24 07:49 Consult to Infectious Diseases Routine Consulting Provider: [facility] Reason for consultation: recurrent Pseudomonas UTI DS: Diagnosis Discharge Diagnosis (1) Symptomatic urinary tract infection: Status: Acute (2) Bladder spasm: Status: Acute (3) Chronic UTI: Status: Acute (4) Recurrent urinary tract infection: Status: Acute (5) Chronic indwelling Ghotra catheter: Status: Acute DS: Summary Hospital Course Hospital Course: Admission note HPI A 63-year-old female with C5-C7 incomplete quadriplegia, wheelchair-bound, with a suprapubic catheter and recurrent 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 Calvo, who recently prescribed a 5-day course of Levaquin and Zyvox on 06/02/24, repeated on 06/09/24. Despite these treatments, she continues to experience UTI symptoms, including bladder spasms, burning, and flank pain. She reports chills but no fever. Notably, she has been seen by Infectious Disease (Dr. Moreno) in the past, with the following guidance: She is likely colonized with organisms in the bladder. Do not treat with antibiotics unless there is hematuria, fever, sepsis concerns, or abdominal pain. No bacterial prophylaxis. Methenamine was ineffective. Do not routinely obtain urine cultures or urinalysis. Treat bladder spasms with antispasmodics. Today's urinalysis is positive, her WBC count is normal, and she is afebrile. The ED has started her on Cefepime. Hospital course Recurrent UTI with Hx of MDR Pseudomonas secondary to chronic suprapubic catheter. No evidence of sepsis. Started on IV Cefepime with significant improvement in her mentation, pain and dysurea. blood cultures remains negative. Failed outpatient Levaquin and Zyvox. To treat with 2 weeks of Cefepime. Midline placed. She will have VNA services at home. Discharge plan Continue Cefepime for 12 more days Change catheter as scheduled Follow with dr Calvo as planned Time Attestation Discharge Coordination Time (in mins): 38 Quality: Safe Use of Opioids Does Pt have an Active Cancer Diagnosis on the Problem List?: No Quality: Stroke Does the patient have a stroke diagnosis?: No Physical Exam Vital Signs: Vital Signs: Last Vital Signs Temp 98.1 F 06/13/24 07:27 Pulse 68 06/13/24 07:27 Resp 14 06/13/24 07:27 BP 132/79 06/13/24 07:27 Pulse Ox 90 L 06/13/24 07:27 O2 Del Method Room Air 06/13/24 07:27 BMI result Body Mass Index 24.2 Const: Other: Constitutional : Awake, interactive, not in distress Neck : Normal inspection, Supple Cardiovascular : RRR, no JVP, no lower extremity edema Respiratory : good bilateral air entry, no crackles, wheezes or rhonchi Gastrointestinal: soft, lax, Normal bowel sounds, Non tender Skin : Warm, Dry Urology: SPC in place Neurological : Alert & oriented x3, paraplegic DS: Data Data Completed and Pending Labs on day of discharge: Laboratory Results - last 24 hr 06/13/24 05:37 WBC 3.4 L RBC 3.83 L Hgb 11.3 L Hct 34.6 L MCV 90.3 MCH 29.5 MCHC 32.7 RDW 13.6 Plt Count 174 MPV 8.7 L Absolute Nucleated RBC 0.000 Nucleated RBC % (auto) 0.0 Sodium 138 Potassium 4.2 Chloride 103 Carbon Dioxide 26 Anion Gap 13 BUN 6 L Creatinine 0.74 Estim Creat Clear Calc 77.6 Estimated GFR > 60 Random Glucose 76 Calcium 9.2 Preliminary micro results at discharge 06/11/24 20:37 Urine Culture - Preliminary Urine Catheterized - Straight Catheter Gram negative davey 06/11/24 22:31 Blood Culture - Preliminary Blood - Venous No growth after 24 hours. 06/11/24 22:14 Blood Culture - Preliminary Blood - Venous No growth after 24 hours. Discharge Plan Discharge Anticipated Discharge Date/Time: 06/13/24 12:20 Patient Disposition: Home Health Service Discharge Diagnosis: Pseudomonas UTI Referrals: [facility] [Other] - 1 Week ([facility] will deliver your IV antibiotics. They will also provide a nurse weekly while you are on IV antibiotics. ) Marcia Reyes MD [Primary Care Provider] - 1 Week Discharge Medications: New cefepime 1 gram Recon Soln 1 g IV Q12H Qty: 24 0RF Continued ascorbic acid (vitamin C) 1,000 mg capsule 1 g PO DAILY 90 Days Qty: 90 1RF bisacodyl 10 mg Suppository 10 mg [place] DAILY PRN (Reason: Constipation) gabapentin 600 mg tablet 600 mg PO TID gabapentin 100 mg capsule 100 mg PO BEDTIME Rx Instructions: with bedtime 600 mg dose citalopram 20 mg tablet 20 mg PO BEDTIME Rx Instructions: with 10 mg citalopram 10 mg tablet 10 mg PO BEDTIME Rx Instructions: with 20 mg sennosides 17.2 mg tablet 17.2 mg PO BEDTIME polyethylene glycol 3350 [Miralax] 17 gram/dose powder 17 g PO BEDTIME levothyroxine 50 mcg capsule 50 mcg PO DAILY@0600 oxybutynin chloride 5 mg tablet 5 mg PO DAILY Qty: 90 3RF Discontinued linezolid 600 mg tablet 600 mg PO BID Rx Instructions: END DATE: 06/14/24 levofloxacin 500 mg tablet 500 mg PO DAILY Rx Instructions: END DATE: 06/14/24 Discharge Orders: Discharge Order (Routine); Ordered 06/13/24 Ordered By: Darnell Smith Diet: Advance to usual diet Activity on Discharge: As tolerated Stand Alone Forms: Patient Portal Discharge page Print Language: [place] Care Plan Goals: Continue Cefepime for 12 more days Change catheter as scheduled Follow with dr Calvo as planned Health Concerns: Read below Plan of Treatment: Read below Assessment: Read below Discharge Date/Time: 06/13/24 15:52
--- NOTE | 2024-06-16 21:48 | W.PM.IDCN ---
History of Present Illness Data of Consult Service Date: 06/13/24 Primary Care Provider: Marcia Reyes MD [facility] Reason for consult: Pseudomonas urine,dysuria and pain She presents with extreme bladder pressure as well as hematuria five days ago. She has Pseudomonas in rine. Review of Systems Review of Systems: Yes all other systems are reviewed and are negative PMF Past Medical History Medical History C5-C7 incomplete quadriplegia (~10/2015) Neurogenic bladder Family History Family history: reviewed and not pertinent Social History Social History Household Members: Family Housing: House Do you presently have visiting nurse or other home services: Yes ([employer]) Alcohol intake: current Patient Tobacco Use Status: Former Tobacco user service: Yes Meds Allergies Allergy/AdvReac Type Severity Reaction Status Date / Time nitrofurantoin Allergy Swelling Verified 06/11/24 19:20 [From Macrobid] Penicillins Allergy Unknown Verified 06/11/24 19:20 Sulfa (Sulfonamide Allergy Unknown Verified 06/11/24 19:20 Antibiotics) sulfamethoxazole Allergy Swelling Verified 06/11/24 19:20 [From Bactrim] trimethoprim [From Bactrim] Allergy Swelling Verified 06/11/24 19:20 Home Medications ?Medication ?Instructions ?Recorded ?Confirmed ?Last Taken ?Type citalopram 10 mg tablet 10 mg PO BEDTIME 08/07/21 06/12/24 Unknown History citalopram 20 mg tablet 20 mg PO BEDTIME 08/07/21 06/12/24 Unknown History gabapentin 100 mg capsule 100 mg PO BEDTIME 08/07/21 06/12/24 Unknown History gabapentin 600 mg tablet 600 mg PO TID 08/07/21 06/12/24 06/11/24 09:00 History levothyroxine 50 mcg capsule 50 mcg PO DAILY@0600 08/07/21 06/12/24 06/11/24 09:00 History polyethylene glycol 3350 17 17 g PO BEDTIME 08/07/21 06/12/24 06/11/24 09:00 History gram/dose oral powder (Miralax) sennosides 17.2 mg tablet 17.2 mg PO BEDTIME 08/07/21 06/12/24 Unknown History bisacodyl 10 mg rectal suppository 10 mg [place] DAILY PRN Constipation 06/12/24 06/12/24 Unknown History Physical Exam Vital Signs: Vital Signs: Last Vital Signs Temp 98.1 F 06/13/24 07:27 Pulse 68 06/13/24 07:27 Resp 14 06/13/24 07:27 BP 132/79 06/13/24 07:27 Pulse Ox 90 L 06/13/24 07:27 O2 Del Method Room Air 06/13/24 07:27 BMI result Body Mass Index 24.2 Const: General: cooperative HEENT: Head: Yes normal to inspection Face and sinus: Yes normal facial exam Mouth: Normal oral and palatal mucosa present Teeth and gingiva: dentition normal Eyes: General: appearance normal, both eyes and all related structures Pupils: Equal, round and reactive pupils present Resp: Effort & Inspection: normal respiratory effort Cardio: Rate: regular rate Rhythm: regular rhythm GI: Palpation (GI): Soft to palpation and nontender : General: Yes no CVA tenderness Back/Spine/Pelvis: Back: no CVA tenderness Skin: General skin exam: no rashes or lesions noted Neuro: General: moves all extremities Cranial nerves: Yes Equal, round and reactive pupils present Extrem: Other: weakness LE Psych: Appearance: grossly normal Results Labs 06/13/24 05:37 06/13/24 05:37 Microbiology Microbiology Results: Microbiology 06/11/24 20:37 Urine Catheterized - Straight Catheter Urine Culture - Final Pseudomonas aeruginosa 06/11/24 22:31 Blood - Venous Blood Culture - Preliminary No growth after 48 hours. 06/11/24 22:14 Blood - Venous Blood Culture - Preliminary No growth after 48 hours. Assessment and Plan (1) Pseudomonas infection: Status: Acute This is likely Pseudomonas urinary infection,symptomatic Would give total 14 days,based on sensitivities. (2) Symptomatic urinary tract infection: Status: Acute
== END 2024-06-13 15:52 | disposition home health service (06) | DRG 698 ==
LOC: HO.ED 22:22 → HO.EDOVER 23:42 → HO.S3 06-12 00:55
PROVIDERS: Admitting Provider Internal Medicine; Emergency Provider Emergency Medicine; PCP Internal Medicine; Visit Provider Student in an Organized Health Care Education/Training Program
DX: T83.518A Infection and inflammatory reaction due to other urinary catheter, initial encounter (principal); G82.54 Quadriplegia, C5-C7 incomplete; N39.0 Urinary tract infection, site not specified; E03.9 Hypothyroidism, unspecified; F39 Unspecified mood [affective] disorder; K59.09 Other constipation; N32.89 Other specified disorders of bladder; B96.5 Pseudomonas (aeruginosa) (mallei) (pseudomallei) as the cause of diseases classified elsewhere; Z99.3 Dependence on wheelchair; Z87.440 Personal history of urinary (tract) infections; Z87.891 Personal history of nicotine dependence; Z88.0 Allergy status to penicillin; Z88.1 Allergy status to other antibiotic agents; Z88.2 Allergy status to sulfonamides; Z79.890 Hormone replacement therapy; Z79.899 Other long term (current) drug therapy
CPT/HCPCS: 36415; 80048; 80053; 81001; 83605; 85025; 85027; 87040; 87086; 87088; 87186; 99285; J0692; J1650

== ENCOUNTER → 2024-06-11 23:38 | Outpatient (BNV) | payer OTHER, SELFPAY | PROVIDERS: Admitting Provider Internal Medicine; Emergency Provider Emergency Medicine; PCP Internal Medicine; Visit Provider Internal Medicine | DX: A49.8 Other bacterial infections of unspecified site (principal); N39.0 Urinary tract infection, site not specified | CPT/HCPCS: 99222 ==

== ENCOUNTER → 2024-06-11 23:38 | Outpatient (BNV) | payer OTHER, SELFPAY | PROVIDERS: Admitting Provider Internal Medicine; Emergency Provider Emergency Medicine; PCP Internal Medicine; Visit Provider Student in an Organized Health Care Education/Training Program | DX: N39.0 Urinary tract infection, site not specified (principal) | CPT/HCPCS: 99222; 99232; 99239 ==

== ENCOUNTER 2024-09-02 20:48 | Outpatient (REF) | payer OTHER, SELFPAY ==
[2024-09-03 08:18] LABS: Appearance Urine Clear; Color Urine Yellow; Glucose Urine UA Negative (Negative); Leukocyte Esterase Urine Small (1+) (Negative); Nitrite Urine Negative (Negative); PH 7.5 (5.0-9.0); Specific Gravity - Urine <= 1.005 (1.005-1.025); UMIC TRIGGER UA YES; Urine Blood Negative (Negative); Urine Ketones Negative (Negative); Urine Protein Negative (Neg-Trace)
[2024-09-03 08:21] LABS: Bacteria Urine 3+ (None Seen); Hyaline Casts Urine 0-2 /LPF (0-2); RBC Urine 0-2 /HPF (0-2); Squamous Epithelial Cell Urine 0-2 /HPF (0-2)
== END 2024-09-02 20:49 | disposition home or self-care (01) ==
LOC: HO.LNP 20:48
PROVIDERS: Visit Provider Urology
DX: N31.9 Neuromuscular dysfunction of bladder, unspecified (principal); Z97.8 Presence of other specified devices
CPT/HCPCS: 81001; 87086; 87088; 87186

== ENCOUNTER 2024-09-19 15:33 | Emergency (ER) | payer OTHER, SELFPAY ==
[2024-09-19 15:47] VITALS: BP 93/52; PULSE 64; RESP 14; TEMP 36.4; O2SAT 94; BMI 23.3
--- NOTE | 2024-09-19 15:50 | ED_ITS ---
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 Related Data Home Medications ?Medication ?Instructions ?Recorded ?Confirmed citalopram 10 mg tablet 10 mg PO BEDTIME 08/07/21 06/12/24 citalopram 20 mg tablet 20 mg PO BEDTIME 08/07/21 06/12/24 gabapentin 100 mg capsule 100 mg PO BEDTIME 08/07/21 06/12/24 gabapentin 600 mg tablet 600 mg PO TID 08/07/21 06/12/24 levothyroxine 50 mcg capsule 50 mcg PO DAILY@0600 08/07/21 06/12/24 polyethylene glycol 3350 17 17 g PO BEDTIME 08/07/21 06/12/24 gram/dose oral powder (Miralax) sennosides 17.2 mg tablet 17.2 mg PO BEDTIME 08/07/21 06/12/24 bisacodyl 10 mg rectal suppository 10 mg ND DAILY PRN Constipation 06/12/24 06/12/24 Previous Rx's ?Medication ?Instructions ?Recorded oxybutynin chloride 5 mg tablet 5 mg PO DAILY #90 tabs 04/13/23 ascorbic acid (vitamin C) 1,000 mg 1 g PO DAILY 90 days #90 caps 11/10/23 capsule cefepime 1 gram solution for 1 g IV Q12H #24 ea 06/13/24 injection cefuroxime axetil 500 mg tablet 500 mg PO BID 14 days #28 tabs 09/06/24 cefuroxime axetil 500 mg tablet 500 mg PO BID 5 days #10 tabs 09/19/24 Allergies Allergy/AdvReac Type Severity Reaction Status Date / Time nitrofurantoin Allergy Swelling Verified 09/19/24 15:52 [From Macrobid] Penicillins Allergy Unknown Verified 09/19/24 15:52 Sulfa (Sulfonamide Allergy Unknown Verified 09/19/24 15:52 Antibiotics) sulfamethoxazole Allergy Swelling Verified 09/19/24 15:52 [From Bactrim] trimethoprim [From Bactrim] Allergy Swelling Verified 09/19/24 15:52 Review of Systems 2 Review of Systems: Yes all other systems are reviewed and are negative PMFSH Past Medical History Medical History Recurrent urinary tract infection C5-C7 incomplete quadriplegia (~10/2015) Neurogenic bladder Social History Social History Household Members: Family Housing: House Do you presently have visiting nurse or other home services: Yes ([employer]) Alcohol intake: current Alcohol intake frequency: does not drink Patient Tobacco Use Status: Former Tobacco user service: Yes Physical Exam 2 Vital Signs: Vital Signs: Last Vital Signs Temp 97.6 F 09/20/24 00:10 Pulse 57 09/20/24 00:10 Resp 14 09/20/24 00:10 BP 150/76 H 09/20/24 00:10 Pulse Ox 96 09/20/24 00:10 O2 Del Method Room Air 09/20/24 00:10 O2 Flow Rate 96 09/20/24 00:06 BMI result Body Mass Index 23.3 Appearance: Alert. Oriented X3. No acute distress. Eyes: PERRLA, No Nystagmus ENT: Pharynx normal. Oral Mucosa moist Neck: Normal inspection. Neck supple. CVS: Normal heart rate and rhythm. Pulses normal. Respiratory: No respiratory distress. Equal air entry bilateral, no wheezing/rales/rhonchi Abdomen: Soft and nontender. Bowel sounds are present, no mass palpable, no CVA tenderness suprapubic catheter in place Skin: Skin warm and dry. Normal skin color. Normal skin turgor. Extremities: No lower extremity edema. No calf tenderness Neuro: Oriented X 3. Quadriplegic but able to move upper extremities. Course Course Course Narrative: This is an RME: Additional HPI, ROS, PE not included below will be deferred to primary provider. 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 Calvo, who presents to the ER with concerns for UTI. Pt states that she has had abdominal discomfort, dysuria. Reports that she has had increased urination. She does have suprapubic discomfort. Plan: Labs, UA further ER eval needed Medical Decision Making Lab Data MDM Lab Attestation statement: I reviewed the patient's lab results. 09/19/24 16:08 09/19/24 16:08 Labs: Lab Results 09/19/24 09/19/24 Range/Units 16:08 23:06 WBC 4.7 L (4.8-10.8) X10*3/uL RBC 3.96 L (4.20-5.50) X10*6/uL Hgb 11.7 L (12.0-16.0) g/dl Hct 35.8 L (37.0-47.0) % MCV 90.4 (80.0-98.0) fL MCH 29.5 (27.0-33.0) pg MCHC 32.7 (31.0-35.0) g/dl RDW 13.8 (11.0-16.0) % Plt Count 247 D (160-400) X10*3/uL MPV 8.4 L (9.4-12.3) fL Immature Gran % (Auto) 0.2 (0.0-0.4) % Neut % (Auto) 69.3 (45-73) % Lymph % (Auto) 17.4 L (20-40) % [place] % (Auto) 8.9 (2-11) % Eos % (Auto) 3.4 (0-4) % Baso % (Auto) 0.8 (0-2) % Lymph # (Auto) 0.8 L (1.2-4.9) X10*3/uL [place] # (Auto) 0.4 (0.1-1.2) X10*3/uL Eos # (Auto) 0.2 (0.0-0.4) X10*3/uL Baso # (Auto) 0.0 (0.0-0.2) X10*3/uL Abs Immat Gran (auto) 0.01 (0.00-0.03) X10*3/uL Absolute Neuts (auto) 3.3 (2.0-8.3) x10*3/uL Absolute Nucleated RBC 0.000 (0.0-0.012) X10*3/uL Nucleated RBC % (auto) 0.0 (0.0-0.2) /100WBC Sodium 135 (135-145) mmol/L Potassium 3.8 (3.3-5.1) mmol/L Chloride 96 (96-108) mmol/L Carbon Dioxide 30 H (22-29) mmol/L Anion Gap 13 (12-20) BUN 7 L (9-16) mg/dL Creatinine 0.77 (0.5-1.4) mg/dL Estim Creat Clear Calc 74.5 Estimated GFR > 60 Random Glucose 136 H (60-115) mg/dL Calcium 9.2 (8.4-10.2) mg/dL Total Bilirubin 0.4 (0.0-1.0) mg/dL Direct Bilirubin 0.1 (0.0-0.5) mg/dL AST 34 H (5-31) U/L ALT 28 (0-31) U/L Alkaline Phosphatase 89 (39-117) U/L Total Protein 7.0 (6.5-8.0) g/dL Albumin 4.0 (3.5-5.0) g/dL Urine Color Yellow Urine Appearance Cloudy Urine pH 6.5 (5.0-9.0) Ur Specific [place] <= 1.005 (1.005-1.025) Urine Protein Negative (Neg-Trace) mg/dL Urine Glucose (UA) Negative (Negative) mg/dL Urine Ketones Negative (Negative) mg/dL Urine Blood Large (3+) H (Negative) Urine Nitrite Negative (Negative) Ur Leukocyte Esterase Large (3+) H (Negative) Urine RBC 11-20 H (0-2) /HPF Urine WBC >50 H (0-5) /HPF Ur Squamous Epith Cells 0-2 (0-2) /HPF Urine Bacteria 1+ (None Seen) Hyaline Casts 0-2 (0-2) /LPF Discharge Plan Discharge Clinical Impression: Neurogenic bladder, Blocked suprapubic catheter Patient Disposition: Home, Self-Care Instructions: Ghotra Catheter Placement and Care (ED), Catheter-associated Urinary Tract Infection (ED) Additional Instructions: Continue medication as prescribed by your urologist Drink plenty of fluids Follow up with your urologist Prescriptions: No Action ascorbic acid (vitamin C) 1,000 mg capsule 1 g PO DAILY 90 Days Qty: 90 1RF cefuroxime axetil 500 mg tablet 500 mg PO BID 14 Days Qty: 28 0RF cefuroxime axetil 500 mg tablet 500 mg PO BID 5 Days Qty: 10 0RF bisacodyl 10 mg Suppository 10 mg ND DAILY PRN (Reason: Constipation) cefepime 1 gram Recon Soln 1 g IV Q12H Qty: 24 0RF gabapentin 600 mg tablet 600 mg PO TID gabapentin 100 mg capsule 100 mg PO BEDTIME Rx Instructions: with bedtime 600 mg dose citalopram 20 mg tablet 20 mg PO BEDTIME Rx Instructions: with 10 mg citalopram 10 mg tablet 10 mg PO BEDTIME Rx Instructions: with 20 mg sennosides 17.2 mg tablet 17.2 mg PO BEDTIME polyethylene glycol 3350 [Miralax] 17 gram/dose powder 17 g PO BEDTIME levothyroxine 50 mcg capsule 50 mcg PO DAILY@0600 oxybutynin chloride 5 mg tablet 5 mg PO DAILY Qty: 90 3RF Interventions: ED Discharge Assessment Last Done: 09/20/24 00:10 Discharge Date/Time: 09/20/24 00:11 Print Language: Mauritian
[2024-09-19 16:11] LABS: MANUAL DIFF FLAG NO
[2024-09-19 16:15] LABS: Basophils Percent Auto 0.8 % (0-2); Eosinophils Absolute Auto 0.2 X10*3/uL (0.0-0.4); Eosinophils Percent Auto 3.4 % (0-4); Hematocrit 35.8 % (37.0-47.0); Hemoglobin 11.7 g/dl (12.0-16.0); Imm Gran Abs Auto 0.01 X10*3/uL (0.00-0.03); Imm Gran Pct Auto 0.2 % (0.0-0.4); Lymphocytes Absolute Auto 0.8 X10*3/uL (1.2-4.9); Lymphocytes Percent Auto 17.4 % (20-40); Mean Corpuscular HGB Conc 32.7 g/dl (31.0-35.0); Mean Corpuscular Hemoglobin 29.5 pg (27.0-33.0); Mean Corpuscular Volume 90.4 fL (80.0-98.0); Mean Platelet Volume 8.4 fL (9.4-12.3); Monocytes Absolute Auto 0.4 X10*3/uL (0.1-1.2); Monocytes Percent Auto 8.9 % (2-11); Neutrophils Absolute Auto 3.3 x10*3/uL (2.0-8.3); Neutrophils Percent Auto 69.3 % (45-73); Platelet Count 247 X10*3/uL (160-400); Red Blood Count 3.96 X10*6/uL (4.20-5.50); Red Cell Distribution Width 13.8 % (11.0-16.0); White Blood Count 4.7 X10*3/uL (4.8-10.8)
[2024-09-19 16:48] LABS: Anion Gap 13 (12-20); Aspartate Amino Transferase 34 U/L (5-31); Bilirubin Direct 0.1 mg/dL (0.0-0.5); Bilirubin Total 0.4 mg/dL (0.0-1.0); Blood Urea Nitrogen 7 mg/dL (9-16); Calcium 9.2 mg/dL (8.4-10.2); Carbon Dioxide 30 mmol/L (22-29); Chloride 96 mmol/L (96-108); Creatinine Clr Calc Pharmacy 74.5; Estimated Glomerular Filt Rate > 60; Glucose Random 136 mg/dL (60-115); Potassium 3.8 mmol/L (3.3-5.1); Sodium 135 mmol/L (135-145)
[2024-09-19 17:00] LABS: Alanine Aminotransferase 28 U/L (0-31); Alkaline Phosphatase 89 U/L (39-117)
[2024-09-19 21:43] VITALS: BP 132/76; PULSE 80; RESP 16; TEMP 36.4; O2SAT 99
--- NOTE | 2024-09-19 23:03 | PC.NURSE ---
Pt aox4, reporting burning/painful urination. Suprapubic sam in place. Pt reports sam has not been putting out sufficient urine. 77ml of urine in bladder scan. Sam unable to be flushed with normal saline. New 18G suprapubic sam placed by with approximately 77ml of clear yellow urine output. Urine sample sent to the lab.
[2024-09-19 23:24] LABS: Appearance Urine Cloudy; Color Urine Yellow; Glucose Urine UA Negative (Negative); Leukocyte Esterase Urine Large (3+) (Negative); Nitrite Urine Negative (Negative); PH 6.5 (5.0-9.0); Specific Gravity - Urine <= 1.005 (1.005-1.025); UMIC TRIGGER UACC YES; Urine Blood Large (3+) (Negative); Urine Ketones Negative (Negative); Urine Protein Negative (Neg-Trace)
[2024-09-19 23:32] LABS: Bacteria Urine 1+ (None Seen); Hyaline Casts Urine 0-2 /LPF (0-2); Squamous Epithelial Cell Urine 0-2 /HPF (0-2); UACC Culture Trigger YES; WBC Urine >50 /HPF (0-5)
[2024-09-20 00:06] VITALS: BP 150/76; PULSE 57; RESP 14; TEMP 36.4
[2024-09-20 00:10] VITALS: BP 150/76; PULSE 57; RESP 14; TEMP 36.4; O2SAT 96
== END 2024-09-20 00:11 | disposition home or self-care (01) ==
PROVIDERS: Physician Assistant Medical; Emergency Provider Internal Medicine; PCP Internal Medicine
DX: N31.9 Neuromuscular dysfunction of bladder, unspecified (principal); N32.89 Other specified disorders of bladder; Z79.899 Other long term (current) drug therapy; Z87.891 Personal history of nicotine dependence
CPT/HCPCS: 36415; 80048; 80076; 81001; 85025; 87086; 99283; 99284

== ENCOUNTER 2024-09-22 16:55 | Outpatient (REF) | payer OTHER, SELFPAY ==
[2024-09-22 17:08] LABS: Appearance Urine Clear; Color Urine Yellow; Glucose Urine UA Negative (Negative); Leukocyte Esterase Urine Moderate (2+) (Negative); Nitrite Urine Positive (Negative); Specific Gravity - Urine <= 1.005 (1.005-1.025); UMIC TRIGGER UA YES; Urine Blood Negative (Negative); Urine Ketones Negative (Negative); Urine Protein Negative (Neg-Trace)
[2024-09-22 17:13] LABS: Bacteria Urine 1+ (None Seen); Hyaline Casts Urine 0-2 /LPF (0-2); RBC Urine 0-2 /HPF (0-2); Squamous Epithelial Cell Urine 0-2 /HPF (0-2)
== END 2024-09-22 16:56 | disposition home or self-care (01) ==
LOC: HO.LNP 16:55
PROVIDERS: Visit Provider Urology
DX: N31.9 Neuromuscular dysfunction of bladder, unspecified (principal); Z97.8 Presence of other specified devices
CPT/HCPCS: 81001; 87086; 87088; 87186

== ENCOUNTER 2024-09-27 17:31 | Emergency (ER) | payer OTHER, SELFPAY ==
--- NOTE | ~2024-09-27 | CT_ITS ---
EXAMINATION: CT ABDOMEN AND PELVIS WITHOUT CONTRAST CLINICAL INFORMATION: 63-year-old female with lower abdominal pain COMPARISON: May 23, 2021 TECHNIQUE: Multidetector volumetric imaging was performed from the superior aspect of the liver through the pubic symphysis. Sagittal and coronal reformatted images were obtained on the technologist's workstation. This CT examination was performed using dose optimization techniques as appropriate, variously including the following: *Automated exposure control *Adjustment of mA and/or kV according to patient size (this includes techniques or standardized protocols for targeted exams where dose is matched to indication/reason for exam; i.e. extremities or head) *Use of iterative reconstruction technique DLP: 500 mGy-cm FINDINGS: LUNG BASES: There are bibasilar atelectasis. LIVER, GALLBLADDER, AND BILIARY TREE: The liver is homogeneous without masses or ductal dilatation. 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 Gallbladder revealed stones and heterogeneous large, well distended. CBD is not dilated there is no choledocholithiasis. PANCREAS: Unremarkable. SPLEEN: Unremarkable. ADRENAL GLANDS: Unremarkable. KIDNEYS AND URETERS: The kidneys are normal in size, shape, and attenuation. No hydronephrosis, hydroureter, or calculi seen. No perinephric stranding. BLADDER: There is suprapubic urinary bladder catheter seen with bilateral inflated. Urinary bladder decompressed. GASTROINTESTINAL TRACT: Large amount of retained feces seen through the colon, consistent with constipation but there is no evidence of bowel obstruction. Stomach is distended by fluid. No evidence of free air or ascites. Loops of small bowel are unremarkable. ABDOMINAL WALL: There is best battery over stimulator seen in the right side of abdominal wall. LYMPH NODES: Normal. VASCULAR: Unremarkable. PELVIC VISCERA: The uterus is not seen, surgically absent. OSSEOUS STRUCTURES: There are degenerative changes at the level of T12-L1 with subchondral sclerosis CT/CT abdomen pelvis wo IV con IMPRESSION: 1. Constipation. 2. Cholelithiasis without cholecystitis. 3. Bibasilar atelectasis. 4. Chilaiditi syndrome. 5. Suprapubic catheter in the urinary bladder. Fleischner guidelines were followed. Electronically signed by: Eduardo Naranjo MD 09/27/2024 08:01 PM [facility] [place]
[2024-09-27 17:33] VITALS: BP 162/91; PULSE 69; RESP 18; TEMP 35.9; O2SAT 99; BMI 34.4
--- NOTE | 2024-09-27 17:34 | ED_ITS ---
HPI - General Adult General Chief complaint: Urogenital-Female Stated complaint: ?UTI Time Seen by Provider: 09/27/24 18:46 Source: patient, RN notes reviewed and old records reviewed Mode of arrival: wheelchair Limitations: no limitations History of Present Illness ED Provider: Anam HPI narrative: 63-year-old female with past medical history significant for neurogenic bladder status post C5-C7 injury, chronic suprapubic catheter presents for evaluation of pelvic pain. She reports her pain started last night. Her catheter was not draining last night into this morning. A visiting nurse came and change the patient's suprapubic catheter with immediate drainage of the bladder. The urine is clear, darker yellow to orange in color. The patient is currently on Levaquin for a UTI prescribed by her urologist, Dr. Calvo The patient reports some chills but no fevers. She has some lower abdominal pain currently. She is concerned that her UTI is not improving The patient is wheelchair-bound due to quadriplegia from her spinal injury Related Data Home Medications ?Medication ?Instructions ?Recorded ?Confirmed citalopram 10 mg tablet 10 mg PO BEDTIME 08/07/21 06/12/24 citalopram 20 mg tablet 20 mg PO BEDTIME 08/07/21 06/12/24 gabapentin 100 mg capsule 100 mg PO BEDTIME 08/07/21 06/12/24 gabapentin 600 mg tablet 600 mg PO TID 08/07/21 06/12/24 levothyroxine 50 mcg capsule 50 mcg PO DAILY@0600 08/07/21 06/12/24 polyethylene glycol 3350 17 17 g PO BEDTIME 08/07/21 06/12/24 gram/dose oral powder (Miralax) sennosides 17.2 mg tablet 17.2 mg PO BEDTIME 08/07/21 06/12/24 bisacodyl 10 mg rectal suppository 10 mg OK DAILY PRN Constipation 06/12/24 06/12/24 Previous Rx's ?Medication ?Instructions ?Recorded oxybutynin chloride 5 mg tablet 5 mg PO DAILY #90 tabs 04/13/23 ascorbic acid (vitamin C) 1,000 mg 1 g PO DAILY 90 days #90 caps 11/10/23 capsule cefepime 1 gram solution for 1 g IV Q12H #24 ea 06/13/24 injection cefuroxime axetil 500 mg tablet 500 mg PO BID 14 days #28 tabs 09/06/24 cefuroxime axetil 500 mg tablet 500 mg PO BID 5 days #10 tabs 09/19/24 levofloxacin 500 mg tablet 500 mg PO DAILY 5 days #5 tabs 09/23/24 Allergies Allergy/AdvReac Type Severity Reaction Status Date / Time nitrofurantoin Allergy Swelling Verified 09/27/24 17:40 [From Macrobid] Penicillins Allergy Unknown Verified 09/27/24 17:40 Sulfa (Sulfonamide Allergy Unknown Verified 09/27/24 17:40 Antibiotics) sulfamethoxazole Allergy Swelling Verified 09/27/24 17:40 [From Bactrim] trimethoprim [From Bactrim] Allergy Swelling Verified 09/27/24 17:40 Review of Systems 2 Constitutional: Constitutional: Denies body ache(s), Reports chills, Denies fever(s), Denies headache(s) and Reports malaise Eyes: Eyes: Denies blurry vision ENT: Denies headache(s) and Denies sore throat Cardiovascular: Cardiovascular: Denies chest pain and Denies dyspnea Respiratory: Respiratory: Denies cough and Denies dyspnea Gastrointestinal: Gastrointestinal: Reports abdominal pain Musculoskeletal: Musculoskeletal: Denies back pain Integumentary/Breasts: Skin/Breast: Denies rash Neurologic: Denies headache(s) Psychiatric: Psychiatric: Denies anxiety PMFSH Past Medical History Medical History Recurrent urinary tract infection C5-C7 incomplete quadriplegia (~10/2015) Neurogenic bladder Social History Social History Household Members: Family Housing: House Do you presently have visiting nurse or other home services: Yes ([employer]) Alcohol intake: current Alcohol intake frequency: does not drink Patient Tobacco Use Status: Former Tobacco user Smoked in Last 30 Days: No Use of substances other than those prescribed or required for medical reasons: No Advance Directives: Yes Advance Directives Information Provided: No Advance Directives on File: No Patient : No service: Yes Physical Exam ED Vital Signs: Vital Signs - 24 hr 09/27/24 17:33 09/27/24 18:00 09/27/24 20:00 Temperature 96.6 F L 97.9 F 98.4 F Pulse Rate 69 72 62 Respiratory Rate 18 16 16 Blood Pressure 162/91 H 145/86 H 186/90 H Pulse Oximetry 99 97 99 Oxygen Delivery Method Room Air Room Air Room Air BMI result Body Mass Index 34.4 Const General: healthy appearing, comfortable, no acute distress, alert and awake Nutritional Appearance: well nourished Orientation/consciousness: patient oriented x3 HENMT Head: Yes normocephalic and Yes atraumatic Eyes Eyelids: Yes eyelids normal Conjunctivae: conjunctivae normal Sclerae: sclerae normal Corneas: corneas normal Pupils: Equal, round and reactive pupils present EOM: EOMs intact bilaterally Neck Neck: Yes full ROM Resp Effort & Inspection: normal respiratory effort, able to speak in complete sentences and not labored Cardio Rate: regular rate Rhythm: regular rhythm GI Other: Baclofen pump present in the right upper abdomen. Inspection: No distended Palpation (GI): Soft to palpation, not firm, Tenderness to palpation present (GI) in the LLQ and suprapubicly, no guarding and not rigid Skin General skin exam: elasticity normal Neuro General: patient oriented x3 Cranial nerves: Yes Equal, round and reactive pupils present and Yes Bilaterally intact EOM present Cognition (Neuro): normal cognition Course Course Course Narrative: This is an RME: Additional HPI, ROS, PE not included below will be deferred to primary provider. RME assessment and note performed by: Adelaide Stone PA-C This is a 55-yaag-gzv-female, with a hx of C5-C7 incomplete quadriplegia, wheelchair-bound, who presents to the ER with complaints of suprapubic discomfort since thursday. She reports that she has had nausea, vomiting. Went to [facility] over the weekend on thursday, and was discharged home on levaquin, rx'd by Dr. Calvo, reports that it does not seem to be helping her. Reporting BL lower back pain as well. Plan: Labs, UA, further ER eval needed Medications Administered Discontinued Medications Generic Name Dose Route Start Last Admin Trade Name Freq PRN Reason Stop Dose Admin Acetaminophen 650 mg 09/27/24 19:26 09/27/24 20:09 Acetaminophen 325 Mg Tablet PO 09/27/24 19:27 650 mg ONCE ONE Administration Medical Decision Making Medical Decision Making MDM Narrative: 63-year-old female presents for evaluation of abdominal pain and pelvic pain, her suprapubic catheter is draining. After it was changes morning there is currently 1600 cc of urine in the bag. Plan for basic labs, urinalysis. The patient does have significant tenderness in the suprapubic and left lower abdomen on exam. We will get a CT scan of the abdomen pelvis. The patient has a mild leukopenia and normocytic anemia which is consistent with her recent labs we will him back to June, there is no left shift sodium is just below normal at 132, the patient is not on any diuretics. Otherwise no other significant electrolyte abnormalities. Renal function within normal limits. Patient's urinalysis is dark yellow, there is no bacteria, no white blood cells/pyuria or evidence of hematuria. There is positive nitrites and esterase although the sample was taken from a suprapubic catheter bag. There was no evidence of active UTI. Given her discomfort, will follow up on CT scan. Her pain may have been related to urinary retention as her catheter was not draining and bladder spasms due to decompression of the bladder. Differential Diagnosis Differential Diagnoses: The differential diagnosis associated with the presentation includes UTI Cystitis Bladder spasm Urinary retention Suprapubic catheter dislodgement Lab Data MDM Lab Attestation statement: I reviewed the patient's lab results. As above 09/27/24 17:53 09/27/24 17:53 Labs: Lab Results 09/27/24 09/27/24 Range/Units 17:53 18:06 WBC 3.1 L (4.8-10.8) X10*3/uL RBC 4.05 L (4.20-5.50) X10*6/uL Hgb 11.9 L (12.0-16.0) g/dl Hct 35.7 L (37.0-47.0) % MCV 88.1 (80.0-98.0) fL MCH 29.4 (27.0-33.0) pg MCHC 33.3 (31.0-35.0) g/dl RDW 13.9 (11.0-16.0) % Plt Count 222 (160-400) X10*3/uL MPV 8.6 L (9.4-12.3) fL Immature Gran % (Auto) 0.3 (0.0-0.4) % Neut % (Auto) 62.4 (45-73) % Lymph % (Auto) 23.9 (20-40) % [place] % (Auto) 13.1 H (2-11) % Eos % (Auto) 0.0 (0-4) % Baso % (Auto) 0.3 (0-2) % Lymph # (Auto) 0.7 L (1.2-4.9) X10*3/uL [place] # (Auto) 0.4 (0.1-1.2) X10*3/uL Eos # (Auto) 0.0 (0.0-0.4) X10*3/uL Baso # (Auto) 0.0 (0.0-0.2) X10*3/uL Abs Immat Gran (auto) 0.01 (0.00-0.03) X10*3/uL Absolute Neuts (auto) 1.9 L (2.0-8.3) x10*3/uL Absolute Nucleated RBC 0.000 (0.0-0.012) X10*3/uL Nucleated RBC % (auto) 0.0 (0.0-0.2) /100WBC Sodium 132 L (135-145) mmol/L Potassium 3.5 (3.3-5.1) mmol/L Chloride 96 (96-108) mmol/L Carbon Dioxide 23 (22-29) mmol/L Anion Gap 17 (12-20) BUN 9 (9-16) mg/dL Creatinine 0.67 (0.5-1.4) mg/dL Estim Creat Clear Calc 103.3 Estimated GFR > 60 Random Glucose 80 (60-115) mg/dL Calcium 8.8 (8.4-10.2) mg/dL Magnesium 1.6 (1.6-2.6) mg/dL Total Bilirubin 0.3 (0.0-1.0) mg/dL Direct Bilirubin 0.2 (0.0-0.5) mg/dL AST 80 H (5-31) U/L ALT 67 H (0-31) U/L Alkaline Phosphatase 77 (39-117) U/L Total Protein 7.1 (6.5-8.0) g/dL Albumin 4.0 (3.5-5.0) g/dL Urine Color Dark Yellow Urine Appearance Clear Urine pH 5.5 (5.0-9.0) Ur Specific [place] <= 1.005 (1.005-1.025) Urine Protein Negative (Neg-Trace) mg/dL Urine Glucose (UA) Negative (Negative) mg/dL Urine Ketones 15 (Negative) mg/dL Urine Blood Negative (Negative) Urine Nitrite Positive H (Negative) Ur Leukocyte Esterase Small (1+) H (Negative) Urine RBC 0-2 (0-2) /HPF Urine WBC 0-5 (0-5) /HPF Ur Squamous Epith Cells 0-2 (0-2) /HPF Urine Bacteria None Seen (None Seen) Hyaline Casts 0-2 (0-2) /LPF Radiology Impression Discussion of test interpretation with radiology: I have reviewed the radiologist's reading. Radiologist Impression: FINDINGS: LUNG BASES: There are bibasilar atelectasis. LIVER, GALLBLADDER, AND BILIARY TREE: The liver is homogeneous without masses or ductal dilatation. 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 Gallbladder revealed stones and heterogeneous large, well distended. CBD is not dilated there is no choledocholithiasis. PANCREAS: Unremarkable. SPLEEN: Unremarkable. ADRENAL GLANDS: Unremarkable. KIDNEYS AND URETERS: The kidneys are normal in size, shape, and attenuation. No hydronephrosis, hydroureter, or calculi seen. No perinephric stranding. BLADDER: There is suprapubic urinary bladder catheter seen with bilateral inflated. Urinary bladder decompressed. GASTROINTESTINAL TRACT: Large amount of retained feces seen through the colon, consistent with constipation but there is no evidence of bowel obstruction. Stomach is distended by fluid. No evidence of free air or ascites. Loops of small bowel are unremarkable. ABDOMINAL WALL: There is best battery over stimulator seen in the right side of abdominal wall. LYMPH NODES: Normal. VASCULAR: Unremarkable. PELVIC VISCERA: The uterus is not seen, surgically absent. OSSEOUS STRUCTURES: There are degenerative changes at the level of T12-L1 with subchondral sclerosis CT/CT abdomen pelvis wo IV con IMPRESSION: 1. Constipation. 2. Cholelithiasis without cholecystitis. 3. Bibasilar atelectasis. 4. Chilaiditi syndrome. 5. Suprapubic catheter in the urinary bladder. Discharge Plan Discharge Clinical Impression: Neurogenic bladder Patient Disposition: Home, Self-Care Instructions: Neurogenic Bladder After Spinal Cord Injury (DC) Additional Instructions: Your workup in the ER today was reassuring. Your urinalysis appears to be clearing up I recommend that you finish your antibiotic Your CT scan showed constipation. Continue your home bowel regimen Follow-up with your primary doctor, return for new or worsening symptoms Prescriptions: No Action ascorbic acid (vitamin C) 1,000 mg capsule 1 g PO DAILY 90 Days Qty: 90 1RF cefuroxime axetil 500 mg tablet 500 mg PO BID 14 Days Qty: 28 0RF cefuroxime axetil 500 mg tablet 500 mg PO BID 5 Days Qty: 10 0RF levofloxacin 500 mg tablet 500 mg PO DAILY 5 Days Qty: 5 0RF bisacodyl 10 mg Suppository 10 mg OK DAILY PRN (Reason: Constipation) cefepime 1 gram Recon Soln 1 g IV Q12H Qty: 24 0RF gabapentin 600 mg tablet 600 mg PO TID gabapentin 100 mg capsule 100 mg PO BEDTIME Rx Instructions: with bedtime 600 mg dose citalopram 20 mg tablet 20 mg PO BEDTIME Rx Instructions: with 10 mg citalopram 10 mg tablet 10 mg PO BEDTIME Rx Instructions: with 20 mg sennosides 17.2 mg tablet 17.2 mg PO BEDTIME polyethylene glycol 3350 [Miralax] 17 gram/dose powder 17 g PO BEDTIME levothyroxine 50 mcg capsule 50 mcg PO DAILY@0600 oxybutynin chloride 5 mg tablet 5 mg PO DAILY Qty: 90 3RF Print Language: Singaporean
--- NOTE | 2024-09-27 17:38 | ECG_ITS ---
Test Reason : nausea, vomiting Blood Pressure : / mmHG Vent. Rate : 063 BPM Atrial Rate : 063 BPM P-R Int : 106 ms QRS Dur : 104 ms QT Int : 454 ms P-R-T Axes : 058 -37 076 degrees QTc Int : 464 ms Sinus rhythm with short MN Left axis deviation Incomplete right bundle branch block Moderate voltage criteria for LVH, may be normal variant ( R in aVL , Natan product ) Septal infarct , age undetermined T wave abnormality, consider lateral ischemia Abnormal ECG When compared with ECG of 08-APR-2018 02:28, Incomplete right bundle branch block is now Present Septal infarct is now Present Referred By: Adelaide Stone Electronically Signed By:Behzad Patterson
[2024-09-27 17:58] LABS: MANUAL DIFF FLAG NO
[2024-09-27 18:00] VITALS: BP 145/86; PULSE 72; RESP 16; TEMP 36.6; O2SAT 97
[2024-09-27 18:01] LABS: Basophils Percent Auto 0.3 % (0-2); Hematocrit 35.7 % (37.0-47.0); Hemoglobin 11.9 g/dl (12.0-16.0); Imm Gran Abs Auto 0.01 X10*3/uL (0.00-0.03); Imm Gran Pct Auto 0.3 % (0.0-0.4); Lymphocytes Absolute Auto 0.7 X10*3/uL (1.2-4.9); Lymphocytes Percent Auto 23.9 % (20-40); Mean Corpuscular HGB Conc 33.3 g/dl (31.0-35.0); Mean Corpuscular Hemoglobin 29.4 pg (27.0-33.0); Mean Corpuscular Volume 88.1 fL (80.0-98.0); Mean Platelet Volume 8.6 fL (9.4-12.3); Monocytes Absolute Auto 0.4 X10*3/uL (0.1-1.2); Monocytes Percent Auto 13.1 % (2-11); Neutrophils Absolute Auto 1.9 x10*3/uL (2.0-8.3); Neutrophils Percent Auto 62.4 % (45-73); Platelet Count 222 X10*3/uL (160-400); Red Blood Count 4.05 X10*6/uL (4.20-5.50); Red Cell Distribution Width 13.9 % (11.0-16.0); White Blood Count 3.1 X10*3/uL (4.8-10.8)
[2024-09-27 18:14] LABS: Alanine Aminotransferase 67 U/L (0-31); Alkaline Phosphatase 77 U/L (39-117); Anion Gap 17 (12-20); Aspartate Amino Transferase 80 U/L (5-31); Bilirubin Direct 0.2 mg/dL (0.0-0.5); Bilirubin Total 0.3 mg/dL (0.0-1.0); Blood Urea Nitrogen 9 mg/dL (9-16); Calcium 8.8 mg/dL (8.4-10.2); Carbon Dioxide 23 mmol/L (22-29); Chloride 96 mmol/L (96-108); Creatinine Clr Calc Pharmacy 103.3; Estimated Glomerular Filt Rate > 60; Glucose Random 80 mg/dL (60-115); Magnesium 1.6 mg/dL (1.6-2.6); Potassium 3.5 mmol/L (3.3-5.1); Sodium 132 mmol/L (135-145); Total Protein 7.1 g/dL (6.5-8.0)
[2024-09-27 18:15] LABS: Appearance Urine Clear; Color Urine Dark Yellow; Glucose Urine UA Negative (Negative); Leukocyte Esterase Urine Small (1+) (Negative); Nitrite Urine Positive (Negative); PH 5.5 (5.0-9.0); Specific Gravity - Urine <= 1.005 (1.005-1.025); UMIC TRIGGER UACC YES; Urine Blood Negative (Negative); Urine Ketones 15 mg/dL (Negative); Urine Protein Negative (Neg-Trace)
[2024-09-27 18:34] LABS: Bacteria Urine None Seen (None Seen); Hyaline Casts Urine 0-2 /LPF (0-2); RBC Urine 0-2 /HPF (0-2); Squamous Epithelial Cell Urine 0-2 /HPF (0-2); UACC Culture Trigger YES; WBC Urine 0-5 /HPF (0-5)
[2024-09-27 20:00] VITALS: BP 186/90; PULSE 62; RESP 16; TEMP 36.9; O2SAT 99
[2024-09-27] MEDS: Acetaminophen 325 MG TABLET 650 MG PO (20:09)
[2024-09-27 20:44] VITALS: BP 172/82
[2024-09-27 20:49] VITALS: BP 172/82; PULSE 66; RESP 20; TEMP 36.7; O2SAT 98
== END 2024-09-27 20:50 | disposition home or self-care (01) ==
PROVIDERS: Physician Assistant Medical; Emergency Provider Emergency Medicine; PCP Internal Medicine
DX: N31.9 Neuromuscular dysfunction of bladder, unspecified (principal); R10.2 Pelvic and perineal pain; R11.2 Nausea with vomiting, unspecified; I45.10 Unspecified right bundle-branch block; R94.31 Abnormal electrocardiogram [ECG] [EKG]; Z79.899 Other long term (current) drug therapy
CPT/HCPCS: 36415; 74176; 80048; 80076; 81001; 83735; 85025; 87086; 87088; 87186; 93005; 99284; 99285

== ENCOUNTER → 2024-09-27 17:38 | Outpatient (BNV) | payer OTHER, SELFPAY | PROVIDERS: Emergency Provider Emergency Medicine; PCP Internal Medicine; Visit Provider Internal Medicine Cardiovascular Disease | DX: R94.31 Abnormal electrocardiogram [ECG] [EKG] (principal) | CPT/HCPCS: 93010 ==

== ENCOUNTER 2024-11-28 12:42 | Outpatient (REF) | payer OTHER, SELFPAY ==
[2024-11-28 14:38] LABS: Appearance Urine Cloudy; Color Urine Yellow; Glucose Urine UA Negative (Negative); Leukocyte Esterase Urine Large (3+) (Negative); Nitrite Urine Positive (Negative); Specific Gravity - Urine <= 1.005 (1.005-1.025); UMIC TRIGGER UA YES; Urine Blood Negative (Negative); Urine Ketones Negative (Negative); Urine Protein Negative (Neg-Trace)
[2024-11-28 14:52] LABS: Bacteria Urine 2+ (None Seen); Hyaline Casts Urine 0-2 /LPF (0-2); Other Crystals Urine Present; RBC Urine 0-2 /HPF (0-2); Squamous Epithelial Cell Urine 0-2 /HPF (0-2)
--- OUTSIDE RECORDS SUMMARY | 2024-11-28 16:36 | XMS_ITS | Clinical Summary ---
Author Organization [facility] Address [phone] [place] [address] Care Team Providers Care Software Sales Representative Name Role Phone Unavailable Primary Care Provider Unavailabl e Social History Tobacco Use Types Packs/Day Years Used Date Smoking Tobacco: Never Assessed Education Answer Date Recorded Are you interested in more education? Not on ghulam e 06/13/2024 Are you concerned about learning? Not on file 06/13/2024 No 06/13/2024 No 06/13/2024 Digital Access Answer Date Recorded No 06/13/2024 No 06/13/2024 Reliable internet access at home? Not on file 06/13/2024 Device with a working camera? Not on file Sex and Gender Information Value Date Recorded Sex Assigned at Not on file Gender Identity Not on file Sexual Orientation Not on file Plan of Treatment Not on file Medical Devices Not on file Additional Source Comments The information contained in this document represents components of the legal health record. It is not the complete legal health record.[facility]
== END 2024-11-28 12:43 | disposition home or self-care (01) ==
LOC: HO.LNP 12:42
PROVIDERS: Visit Provider Urology
DX: N31.9 Neuromuscular dysfunction of bladder, unspecified (principal); R82.79 Other abnormal findings on microbiological examination of urine; Z96.0 Presence of urogenital implants
CPT/HCPCS: 81001; 87086; 87088; 87186

== ENCOUNTER 2025-01-24 10:00 | Outpatient (AMB) | payer OTHER, SELFPAY ==
--- NOTE | 2025-01-24 10:00 | A.OFFVIS_ITS ---
Intake Visit Reasons: 6m follow up/discuss UTI prevention/suppression Allergies nitrofurantoin [From Macrobid] Allergy (Verified 09/27/24 17:40) Swelling Penicillins Allergy (Verified 09/27/24 17:40) Unknown Sulfa (Sulfonamide Antibiotics) Allergy (Verified 09/27/24 17:40) Unknown sulfamethoxazole [From Bactrim] Allergy (Verified 09/27/24 17:40) Swelling trimethoprim [From Bactrim] Allergy (Verified 09/27/24 17:40) Swelling HPI Comments Details: Erica is a pleasant female. She is a patient of Dr. Reyes. She is seen for the following urologic conditions. 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 Neurogenic bladder managed with SP tube 18 Upper Sorbian Tube changed every 3 weeks by DIESEL ENGINE MECHANIC APPRENTICE Baseline oxybutynin 5 mg for spasm Has been on methenamine 1 g for suppression however causes diarrhea Will use it when has UTI type symptoms Again discussed today possible use of Macrobid however has allergy to nitrofurantoin Reviewed: Renal US?12/08/2022-- Kidneys: WNL, No renal calculi visualized Continue surveillance Tele health visits work better given her restriction from attending office [facility] Medical History Recurrent urinary tract infection C5-C7 incomplete quadriplegia (~10/2015) Neurogenic bladder Social History Household Members: Family Housing: House Do you presently have visiting nurse or other home services: Yes (DIESEL ENGINE MECHANIC APPRENTICE's) Alcohol intake: current Alcohol intake frequency: does not drink Patient Tobacco Use Status: Former Tobacco user service: Yes Review of Systems Const All systems reviewed & are unremarkable except as noted in HPI and below Reports no additional complaints Resp Reports no additional complaints GI Reports no additional complaints Reports as per HPI Musc Reports no additional complaints Physical Exam Telemedicine evaluation Appropriate responses Regular breathing rate and rhythm HEENT Head: Yes normal to inspection Ears: hearing grossly normal bilaterally Eyes General: appearance normal, both eyes and all related structures Neck Neck: Yes normal visual inspection Chest Chest palpation & inspection: normal inspection of the chest Resp Effort & Inspection: normal respiratory effort and able to speak in complete sentences Telehealth Telehealth Telehealth Platform: [email or web address] Location of provider rendering services: practice address Location of patient: address on file Patient Identification confirmed using: Name, : Yes Telehealth method: video Patient verbally consented to treatment: Yes Patient verbally consented to billing insurance company: Yes Patient informed of any privacy concerns related to visit: Yes Minutes spent on Phone/Video with Pt.: 15 Assessment & Plan Assessment & Plan (1) Recurrent urinary tract infection: Code(s): N39.0 - Urinary tract infection, site not specified Category: Medical (2) Neurogenic bladder: Code(s): N31.9 - Neuromuscular dysfunction of bladder, unspecified Category: Medical Plan Trial trimethoprim Six-month follow-up Medications: New trimethoprim 100 mg PO DAILY 90 days 90 tabs 1RF N39.0 - Urinary tract infection, site not specified, R33.9 - Retention of urine, unspecified Discontinued cefuroxime axetil Discontinued Reason: Patient Completed Course 500 mg PO BID 5 days 10 tabs 0RF cefuroxime axetil Discontinued Reason: Patient Completed Course 500 mg PO BID 14 days 28 tabs 0RF Patient Instructions: This note is constructed using voice recognition software. While every effort has been made to ensure accuracy drug room clerk errors may have been included. Imaging studies, laboratory and physical exam results were discussed and reviewed in detail. No major barriers to patient understanding were identified. An opportunity to ask questions regarding the treatment plan was provided. All questions were answered. The patient expressed understanding and agreement with the above treatment plan. The patient is aware they should contact our office by phone for worsening of their current condition or the appearance of new urologic symptoms. Compliance is encouraged with any medications and followup testing that is ordered. It is a privilege to participate in the urologic care of your patient. If you have any questions or concerns regarding treatment for the above conditions, or other urologic issues, please do not hesitate to contact me. The office telephone contact is [phone]. Sincerely, Dr Nelson Calvo MD, [facility] - Urology Compassionate Specialist Care for the Genitourinary System Coding Level of Care Code Tele Est Pt Level 4 (95734) Complex EM visit Add On G2211 Diagnoses Recurrent urinary tract infection N39.0 Neurogenic bladder N31.9
== END 2025-01-24 10:32 | disposition home or self-care (01) ==
LOC: HO.HUSH 10:00
PROVIDERS: PCP Internal Medicine; Visit Provider Urology
DX: N39.0 Urinary tract infection, site not specified (principal); N31.9 Neuromuscular dysfunction of bladder, unspecified
CPT/HCPCS: 99214; G2211

== ENCOUNTER 2025-02-01 12:35 | Outpatient (REF) | payer OTHER, SELFPAY ==
[2025-02-01 12:44] LABS: Appearance Urine Clear; Color Urine Dark Yellow; Glucose Urine UA Negative (Negative); Leukocyte Esterase Urine Moderate (2+) (Negative); Nitrite Urine Positive (Negative); UMIC TRIGGER UA YES; Urine Blood Trace (Negative); Urine Ketones Negative (Negative); Urine Protein Negative (Neg-Trace)
[2025-02-01 12:49] LABS: Bacteria Urine 4+ (None Seen); Hyaline Casts Urine 0-2 /LPF (0-2); Squamous Epithelial Cell Urine 0-2 /HPF (0-2)
--- OUTSIDE RECORDS SUMMARY | 2025-02-01 13:50 | XMS_ITS | Clinical Summary ---
Author Organization [facility] Address [address] [address] Phone Care Team Providers Care Horticulture/Floriculture Teacher Name Role Phone Marlen Reyes MD Primary Care Provider [phone] StokesMagen warren DO Unavailable [phone] Allergies No known active allergies Medications Medication Sig Dispensed Refills Start Date End Date Status levothyroxine (SYNTHROID, LEVOTHROID) 50 MCG tablet Take 50 mcg by mouth every morning. Active bisacodyl (DULCOLAX) [address] 10 mg rectally daily. Active gabapentin (NEURONTIN) 600 MG tablet Take 700 mg by mouth 3 (three) times a day. Active oxybutynin (DITROPAN) 5 MG tablet Take 5 mg by mouth daily. Active citalopram (CELEXA) 20 MG tablet Take 30 mg by mouth daily. Active senna (SENOKOT) 8.6 mg tablet Take 2 tablets by mouth every evening. Active Saccharomyces boulardii (FLORASTOR) 250 mg capsule Take 250 mg by mouth daily. Active therapeutic multivitamin tablet Take 1 tablet by mouth daily. Active ascorbic acid, vitamin C, (VITAMIN C) 500 mg Chew Take by mouth daily. Active Medication-Free TextIndications:Baclo fen pump 25.97 mg per day Indications: Baclofen pump 25.97 mg per day Active acetaminophen (TYLENOL) 325 mg tablet Take 2 tablets (650 mg total) by mouth every 4 (four) hours as needed for mild pain. 20 tablet 09/19/2019 Active ibuprofen (ADVIL,MOTRIN) 200 MG tablet Take 2 tablets (400 mg total) by mouth every 6 (six) hours as needed for pain (specific location in comments). 20 tablet 09/19/2019 Active Active Problems Problem Noted Date Diagnosed Date H/O spinal cord injury 08/05/2019 Cervical spinal cord injury 08/05/2019 Spasticity 08/05/2019 Limb weakness 08/05/2019 Social History Tobacco Use Types Packs/Day Years Used Date Smoking Tobacco: Former Cigarettes Q uit: 2003 Smokeless Tobacco: Never Comments:quit 15 years ago Alcohol Use Standard Drinks/Week Comments Yes 0 (1 standard drink = 0.6 oz pur e alcohol) 4 per year Education Answer Date Recorded Are you interested in more education? Not on ghulam e 01/30/2023 Are you concerned about learning? Not on file 01/30/2023 No 01/30/2023 No 01/30/2023 Digital Access Answer Date Recorded No 02/28/2023 No 02/28/2023 No 02/28/2023 Reliable internet access at home? Not on file 02/28/2023 Device with a working camera? Not on file Sex and Gender Information Value Date Recorded Sex Assigned at Female 06/24/2019 2:17 PM EDT Gender Identity Female 06/24/2019 2:17 PM EDT Sexual Orientation Straight 06/24/2019 2: 17 PM EDT Last Filed Vital Signs Vital Sign Reading Time Taken Comments Blood Pressure 149/74 09/19/2019 2:46 PM EST Pulse 76 09/19/2019 2:46 PM EST Temperature 36.8 ??C (98.2 ??F) 09/19/2019 2:46 PM ES T Respiratory Rate 16 09/19/2019 2:46 PM EST Oxygen Saturation 100% 09/19/2019 2:46 PM EST Inhaled Oxygen Concentration - - Weight 60.8 kg (134 lb) 09/19/2019 8:49 AM EST Height 167.6 cm (5' 6 ) 09/19/2019 8:49 AM EST Body Mass Index 21.63 09/19/2019 8:49 AM EST Plan of Treatment Health Maintenance Due Date Last Done Comments Adult Td,Tdap Booster 1960 LIPID PANEL 1962 TSH LEVEL 1962 DEPRESSION SCREENING 1974 SMOKING Hx and SMOKELESS TOBACCO SCREENING 12/13/1975 HEPATITIS C SCREENING 1980 HIV ONE-TIME SCREENING (18-6 5 YEARS) 1980 PAP SMEAR 12/13/1983 MAMMOGRAM 2002 COLOGUARD 12/13/2007 COLONOSCOPY 12/13/2007 COLORECTAL CANCER SCREENING 12/13/2007 FIT TEST 12/13/2007 FOBT 12/13/2007 SIGMOIDOSCOPY 12/13/2007 VIRTUAL COLONOSCOPY 12/13/2007 PNEUMOCOCCAL VACCINES (50+ years) (1 of 1 - PCV) 2012 ZOSTER VACCINES (1 of 2) 2012 COVID-19 VACCINE (3 - 2023-2 5 season) 2024 05/22/2021, 04/24/2021 RSV VACCINE (1 - 1-dose 75+ series) 2037 HEPATITIS A VACCINES Aged Out No long er eligible based on patient's age to complete this topic HIB VACCINES Aged Out No longer eligi ble based on patient's age to complete this topic MENINGOCOCCAL VACCINES (ACWY) Aged Out No longer eligible based on patient's age to complete this topic Medical Devices Implanted Type Area Orientation And Mobility Instructor Device Identifier Shelf Expiration Date Model / Serial / Lot Neck Hardware Supra Pubic Tube Baclofen Pump Connector Terri 2.0mm Length 10 Repair Nerve Axoguard Coaptation Aid Peripheral - [id number] Implanted:Qty: 1 on 09/19/2019 by Ramón Carbajal MD at [facility] Left: [employer] 12/10/2020 [id number] / [id number] / [id number] Advance Directives For more information, please contact: [phone] (9AM - 5PM [facility], Thursday-Thursday) Documents on File Type Date Recorded Patient Derrick Boat Operator Expl anation Healthcare Proxy 09/22/2019 8:04 AM Care Teams Horticulture/Floriculture Teacher Relationship Specialty Start Date End Date Marlen Reyes MD PCP - General Internal Medicine 06/24/19 Magen Stokes DO [address] [place] [address] Physical Medicine and Rehabilitation 09/12/19 Additional Source Comments The information contained in this document represents components of the legal health record. It is not the complete legal health record.[facility]
--- OUTSIDE RECORDS SUMMARY | 2025-02-01 13:51 | XMS_ITS | Encounter Summary ---
Author Organization [facility] Address [address] [place] [address] Phone Care Team Providers Care Delicatessen Store Manager Name Role Phone Marlen Reyes MD Primary Care Provider [phone] Magen Stokes DO Unavailable [phone] Encounter Details Date Type Department Care Team (Late st Contact Info) Description 09/19/2019 Procedure Pass [facility] [address] [place] [phone] Social History Tobacco Use Types Packs/Day Years Used Date Smoking Tobacco: Former Cigarettes Q uit: 2003 Smokeless Tobacco: Never Comments:quit 15 years ago Alcohol Use Standard Drinks/Week Comments Yes 0 (1 standard drink = 0.6 oz pur e alcohol) 4 per year Sex and Gender Information Value Date Recorded Sex Assigned at Female 06/24/2019 2:17 PM EDT Gender Identity Female 06/24/2019 2:17 PM EDT Sexual Orientation Straight 06/24/2019 2: 17 PM EDT documented as of this encounter Plan of Treatment Not on file documented as of this encounter Visit Diagnoses Not on filedocumented in this encounter Care Teams Delicatessen Store Manager Relationship Specialty Start Date End Date Marlen Reyes MD PCP - General Internal Medicine 06/24/19 Magen Stokes DO [address] [place] [id number] Physical Medicine and Rehabilitation 09/12/19 documented as of this encounter Additional Source Comments The information contained in this document represents components of the legal health record. It is not the complete legal health record.[facility]
== END 2025-02-01 12:36 | disposition home or self-care (01) ==
LOC: HO.LNP 12:35
PROVIDERS: Visit Provider Urology
DX: N39.0 Urinary tract infection, site not specified (principal); Z96.0 Presence of urogenital implants
CPT/HCPCS: 81001; 87086

== ENCOUNTER 2025-03-10 13:52 | Outpatient (AMB) | payer OTHER, SELFPAY ==
--- NOTE | 2025-03-10 13:52 | MHC.OFFVIS ---
Intake Visit Reasons: discuss botox Intake Note: Patient presents via telehealth today for botox discussion Urology Medication: Blood Thinner: Antibiotic Allergies: Allergies nitrofurantoin [From Macrobid] Allergy (Verified 03/10/25 13:54) Swelling Penicillins Allergy (Verified 03/10/25 13:54) Unknown Sulfa (Sulfonamide Antibiotics) Allergy (Verified 03/10/25 13:54) Unknown sulfamethoxazole [From Bactrim] Allergy (Verified 03/10/25 13:54) Swelling trimethoprim [From Bactrim] Allergy (Verified 03/10/25 13:54) Swelling Medication List - Last Reconciled 03/10/25 by Nelson Calvo MD ascorbic acid (vitamin C) 1 g PO DAILY 90 days bisacodyl 10 mg MS DAILY PRN cefepime 1 g IV Q12H cefuroxime axetil 500 mg PO BID 7 days levofloxacin 500 mg PO DAILY 7 days oxybutynin chloride ER 10 mg PO DAILY 90 days HPI Comments Details: Erica is a pleasant female. She is a patient of Dr. Reyes. She is seen for the following urologic conditions. 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 Neurogenic bladder managed with SP tube 18 Malay Tube changed every 3 weeks by DIRECTOR OF ANESTHESIA SERVICES Baseline oxybutynin 5 mg for spasm Has been on methenamine 1 g for suppression however causes diarrhea Will use it when has UTI type symptoms Again discussed today possible use of Macrobid however has allergy to nitrofurantoin Reviewed: Renal US?12/08/2022-- Kidneys: WNL, No renal calculi visualized Continue surveillance Tele health visits work better given her restriction from attending office [facility] Medical History Recurrent urinary tract infection C5-C7 incomplete quadriplegia (~10/2015) Neurogenic bladder Social History Household Members: Family Housing: House Do you presently have visiting nurse or other home services: Yes (DIRECTOR OF ANESTHESIA SERVICES's) Alcohol intake: current Alcohol intake frequency: does not drink Patient Tobacco Use Status: Former Tobacco user service: Yes Review of Systems Const All systems reviewed & are unremarkable except as noted in HPI and below Reports no additional complaints Resp Reports no additional complaints GI Reports no additional complaints Reports as per HPI Musc Reports no additional complaints Physical Exam Telemedicine evaluation Appropriate responses Regular breathing rate and rhythm HEENT Head: Yes normal to inspection Ears: hearing grossly normal bilaterally Eyes General: appearance normal, both eyes and all related structures Neck Neck: Yes normal visual inspection Chest Chest palpation & inspection: normal inspection of the chest Resp Effort & Inspection: normal respiratory effort and able to speak in complete sentences Telehealth Telehealth Telehealth Platform: [email or web address] Location of provider rendering services: practice address Location of patient: address on file Patient Identification confirmed using: Name, : Yes Telehealth method: video Patient verbally consented to treatment: Yes Patient verbally consented to billing insurance company: Yes Patient informed of any privacy concerns related to visit: Yes Minutes spent on Phone/Video with Pt.: 15 Assessment & Plan Assessment & Plan (1) Neurogenic bladder: Code(s): N31.9 - Neuromuscular dysfunction of bladder, unspecified Category: Medical (2) Recurrent urinary tract infection: Code(s): N39.0 - Urinary tract infection, site not specified Category: Medical Plan Continued catheter for Medications: Changed From oxybutynin chloride ER 10 mg PO DAILY 30 tabs 2RF To oxybutynin chloride ER 10 mg PO DAILY 90 tabs 1RF 90 days Refilled ascorbic acid (vitamin C) 1 g PO DAILY 90 caps 1RF 90 days Patient Instructions: This note is constructed using voice recognition software. While every effort has been made to ensure accuracy rivet machine operator errors may have been included. Imaging studies, laboratory and physical exam results were discussed and reviewed in detail. No major barriers to patient understanding were identified. An opportunity to ask questions regarding the treatment plan was provided. All questions were answered. The patient expressed understanding and agreement with the above treatment plan. The patient is aware they should contact our office by phone for worsening of their current condition or the appearance of new urologic symptoms. Compliance is encouraged with any medications and followup testing that is ordered. It is a privilege to participate in the urologic care of your patient. If you have any questions or concerns regarding treatment for the above conditions, or other urologic issues, please do not hesitate to contact me. The office telephone contact is [phone]. Sincerely, Dr Nelson Calvo MD, [facility] - Urology Compassionate Specialist Care for the Genitourinary System Coding Level of Care Code Tele Est Pt Level 3 (83679) Complex EM visit Add On G2211 Diagnoses Neurogenic bladder N31.9 Recurrent urinary tract infection N39.0
== END 2025-03-10 14:33 | disposition home or self-care (01) ==
LOC: HO.HUSH 13:52
PROVIDERS: PCP Internal Medicine; Visit Provider Urology
DX: N31.9 Neuromuscular dysfunction of bladder, unspecified (principal); N39.0 Urinary tract infection, site not specified
CPT/HCPCS: 99213; G2211

== ENCOUNTER 2025-03-31 10:21 | Outpatient (REF) | payer OTHER, SELFPAY ==
[2025-03-31 10:42] LABS: Appearance Urine Clear; Color Urine Yellow; Glucose Urine UA Negative (Negative); Leukocyte Esterase Urine Large (3+) (Negative); Nitrite Urine Positive (Negative); PH 7.5 (5.0-9.0); Specific Gravity - Urine <= 1.005 (1.005-1.025); UMIC TRIGGER UA YES; Urine Blood Small (1+) (Negative); Urine Ketones Negative (Negative); Urine Protein Negative (Neg-Trace)
[2025-03-31 11:12] LABS: Bacteria Urine 2+ (None Seen); Hyaline Casts Urine 0-2 /LPF (0-2); Squamous Epithelial Cell Urine 0-2 /HPF (0-2)
== END 2025-03-31 10:22 | disposition home or self-care (01) ==
LOC: HO.LNP 10:21
PROVIDERS: Visit Provider Urology
DX: N31.9 Neuromuscular dysfunction of bladder, unspecified (principal); N39.0 Urinary tract infection, site not specified
CPT/HCPCS: 81001; 87086

== ENCOUNTER 2025-05-11 13:33 | Outpatient (AMB) | payer OTHER, SELFPAY ==
--- OUTSIDE RECORDS SUMMARY | 2025-05-11 13:37 | XMS_ITS | Clinical Summary ---
Author Organization [facility] Address [address] [employer] [facility] [address] [place] [address] Phone Care Team Providers Care Verifier Operator Name Role Phone Marlen Reyes MD Primary Care Provider [phone] StokesMagen warren DO Unavailable [phone] Allergies No known active allergies Medications levothyroxine (SYNTHROID, LEVOTHROID) 50 MCG tablet Take [...] Chew Take by mouth daily. Active Medication-Free TextIndications:B aclofen pump 25.97 mg per day Indications: Baclofen pump 25.97 mg per day Active acetaminophen (TYLENOL) 325 mg tablet Take 2 tablets (650 mg total) by mouth every 4 (four) hours as needed for mild pain. 20 tablet 9 Active ibuprofen (ADVIL,MOTRIN) 200 MG tablet Take 2 tablets (400 mg total) by mouth every 6 (six) hours as needed for pain (specific location in comments). 20 tablet 9 Active Active Problems Problem Noted Date Diagnosed [...] with a working camera? Not on file Comments No Sex and Gender Information Value Date Recorded Sex Assigned at Female 06/24/2019 2:17 PM EDT Legal Sex Female 9:44 PM EDT Gender Identity Female 06/24/2019 2:17 PM EDT Sexual Orientation Straight 06/24/2019 2: 17 PM EDT Last Filed Vital Signs Vital Sign Reading Time Taken Comments Blood Pressure 149/74 09/19/2019 2:46 PM EST Pulse 76 09/19/2019 2:46 PM EST Temperature 36.8 C (98.2 F) 09/19/2019 2:46 PM EST Respiratory Rate 16 09/19/2019 2:46 PM EST [...] age to complete this topic MENINGOCOCCAL VACCINES (B) Aged Out N o longer eligible based on patient's age to complete this topic Medical Devices Implanted Type Area Hospital Secretary Device Identifier Shelf Expiration Date Model / Serial / Lot Neck Hardware Supra Pubic Tube Baclofen Pump Connector Terri 2.0mm Length 10 Repair Nerve Axoguard Coaptation Aid Peripheral - [id number] Implanted:Qty: 1 on 09/19/2019 by Ramón Carbajal MD at [facility] Left: Ulna [employer] 12/10/2020 [id number] / [id number] / [id number] Insurance [facility] [place] [place] [address] , [place] [address] , [place] [address] Advance Directives For more information, please contact: [phone] (9AM - 5PM [facility], Thursday-Thursday) Documents on File Type Date Recorded Patient Power Brake Operator Expl anation Healthcare Proxy 09/22/2019 8:04 AM Care Teams Verifier Operator Relationship Specialty Start Date End Date Marlen Reyes MD PCP - General Internal Medicine 06/24/19 Magen Stokes DO [address] [place] [id number] Physical Medicine and Rehabilitation 09/12/19 Additional Source Comments The information contained in this document represents components of the legal health record. It is not the complete legal health record.[facility]
--- NOTE | 2025-05-11 14:21 | AM.OFFVISNUR ---
Intake Visit Reasons: SPT change Allergies nitrofurantoin (From Macrobid) Allergy (Verified 03/10/25 13:54) Swelling Penicillins Allergy (Verified 03/10/25 13:54) Unknown Sulfa (Sulfonamide Antibiotics) Allergy (Verified 03/10/25 13:54) Unknown sulfamethoxazole (From Bactrim) Allergy (Verified 03/10/25 13:54) Swelling trimethoprim (From Bactrim) Allergy (Verified 03/10/25 13:54) Swelling Office Procedures Bladder/Catheter Procedure Details: Patient presents to office for catheter change. 18 fr sam catheter ml balloon plug/flip valve removed, new 18 fr sam catheter with ml balloon overnight urine bag inserted. Patient tolerated exchange well. Patient to make follow up in 3 weeks with nurse for next cath change [id number] of bladder tube Procedure code (CPT) selection complete Assessment & Plan Assessment & Plan Orders: Orders AMB Bladder/Catheter Procedure Today N31.9 - Neuromuscular dysfunction of bladder, unspecified, Z97.8 - Presence of other specified devices Coding CPT Codes Bladder/Catheter Procedure - CPT: 42448-Wuobqk of bladder tube ([id number])
== END 2025-05-11 14:28 | disposition home or self-care (01) ==
LOC: HO.HUSH 13:33
PROVIDERS: PCP Internal Medicine; Visit Provider Urology
DX: N31.9 Neuromuscular dysfunction of bladder, unspecified (principal); Z97.8 Presence of other specified devices

== ENCOUNTER → 2025-05-11 13:33 | Outpatient (BNVA) | payer OTHER, SELFPAY | PROVIDERS: PCP Internal Medicine; Visit Provider Urology | DX: Z46.6 Encounter for fitting and adjustment of urinary device (principal); N31.9 Neuromuscular dysfunction of bladder, unspecified; Z97.8 Presence of other specified devices | CPT/HCPCS: 51705 ==

== ENCOUNTER → 2025-06-07 13:29 | Outpatient (BNVA) | payer OTHER, SELFPAY | PROVIDERS: PCP Internal Medicine; Visit Provider Urology | DX: Z46.6 Encounter for fitting and adjustment of urinary device (principal) | CPT/HCPCS: 51705 ==

== ENCOUNTER → 2025-07-18 14:41 | Outpatient (BNVA) | payer OTHER, SELFPAY | PROVIDERS: PCP Internal Medicine; Visit Provider Urology | DX: Z46.6 Encounter for fitting and adjustment of urinary device (principal); N31.9 Neuromuscular dysfunction of bladder, unspecified | CPT/HCPCS: 51705 ==

== ENCOUNTER → 2025-08-08 14:31 | Outpatient (BNVA) | payer OTHER, SELFPAY | PROVIDERS: PCP Internal Medicine; Visit Provider Urology | DX: Z46.6 Encounter for fitting and adjustment of urinary device (principal); N31.9 Neuromuscular dysfunction of bladder, unspecified; Z97.8 Presence of other specified devices | CPT/HCPCS: 51705 ==

== ENCOUNTER → 2025-08-29 13:19 | Outpatient (BNVA) | payer OTHER, SELFPAY | PROVIDERS: PCP Internal Medicine; Visit Provider Urology | DX: N31.9 Neuromuscular dysfunction of bladder, unspecified (principal); Z97.8 Presence of other specified devices | CPT/HCPCS: 51705 ==

== ENCOUNTER 2025-09-12 15:39 | Outpatient (AMB) | payer OTHER, SELFPAY ==
--- OUTSIDE RECORDS SUMMARY | 2025-08-28 09:00 | XMS_ITS ---
Author Organization [facility] Address [address] [place] [address] Care Team Providers Care Mold Carrier Name Role Phone Evie Sherman Primary Care Provider Unavailable Atiya García [phone] Encounters Encounter Location Date Provider Diagnosis [facility] [address] [place] [address] 08/28/2025 Atiya García Plan Of Treatment No Information Progress Notes * Erica PINEDADOB:1960 ( 64 yo F)Acc No.[id number]:08/28/2025 Progress Notes Patient: Erica ALEXANDRE Provider: Ralph García DPM :1960 A ge:64 Y S ex:Female Date:08/28/2025 Address:[address] [place], [place] [id number] Pcp:Evie Sherman Subjective: * Chief Complaints: * * Medical History: Objective: * Vitals: Assessment: Plan: * Treatment: * Images: * The named appointment provid er may or may not be the originator of this progress note, and it is not deemed complete until electronically signed by the appointment provider. Sign off status: Pending * Provider: Ralph García DPM Date: 10/28/2024 Generated for Damir melissa/Brayan/Priscaitting on: 11/13/2024 10:23 PM EST
--- NOTE | 2025-09-12 15:40 | MHC.OFFVIS ---
Intake Visit Reasons: 6m f/u SET UA Intake Note: Reason for Visit: Follow up Urology Meds: Oxybutynin, Vitamin C Blood Thinners:None Labs: None Imaging: None Last PVR: None Allergies nitrofurantoin (From Macrobid) Allergy (Verified 09/12/25 15:41) Swelling Penicillins Allergy (Verified 09/12/25 15:41) Unknown Sulfa (Sulfonamide Antibiotics) Allergy (Verified 09/12/25 15:41) Unknown sulfamethoxazole (From Bactrim) Allergy (Verified 09/12/25 15:41) Swelling trimethoprim (From Bactrim) Allergy (Verified 09/12/25 15:41) Swelling HPI Comments Details: Erica is a pleasant female. She is a patient of Dr. Reyes. She is seen for the following urologic conditions. 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 Neurogenic bladder managed with SP tube 18 Chadian Tube changed every 3 weeks by [employer] Reviewed: Renal US?12/08/2022-- Kidneys: WNL, No renal calculi visualized Continue surveillance Tele health visits work better given her restriction from attending office [facility] Medical History Recurrent urinary tract infection C5-C7 incomplete quadriplegia (~10/2015) Neurogenic bladder Social History Household Members: Family Housing: House Do you presently have visiting nurse or other home services: Yes ([employer]'s) Alcohol intake: current Alcohol intake frequency: does not drink Patient Tobacco Use Status: Former Tobacco user service: Yes Review of Systems Const Denies chills and Denies fever(s) Card Reports no additional complaints and Denies syncope Resp Denies cough GI Denies abdominal pain and Denies heartburn Reports as per HPI and Denies change in libido Neuro Denies syncope Psych Denies change in libido Endo Denies change in libido Physical Exam Const General: cooperative, healthy appearing, comfortable and no acute distress Orientation/consciousness: patient oriented x3 HEENT Face and sinus: Yes normal facial exam Mouth: moist mucous membranes Neck Neck: Yes normal visual inspection, Yes full ROM and Yes trachea midline Chest Chest palpation & inspection: normal inspection of the chest Resp Effort & Inspection: normal respiratory effort, able to speak in complete sentences and no respiratory distress GI Inspection: Yes normal to inspection Back/Spine/Pelvis Cervical Spine: normal cervical lordosis Thoracic/Lumbar Spine: thoracic and lumbar spine normal to inspection Skin General skin exam: no rashes or lesions noted Neuro General: patient oriented x3, gait normal, tone normal and moves all extremities Extrem General: Yes normal to inspection and Yes capillary refill normal Telehealth Telehealth Telehealth Platform: [employer] Location of provider rendering services: practice address Location of patient: address on file Patient Identification confirmed using: Name, : Yes Telehealth method: video Patient verbally consented to treatment: Yes Patient verbally consented to billing insurance company: Yes Patient informed of any privacy concerns related to visit: Yes Minutes spent on Phone/Video with Pt.: 15 Assessment & Plan Assessment & Plan (1) Recurrent urinary tract infection: Code(s): N39.0 - Urinary tract infection, site not specified Category: Medical (2) Suprapubic catheter: Code(s): Z93.59 - Other cystostomy status Category: Medical Plan Six-month follow-up Refill medications Medications: Refilled oxybutynin chloride ER . 10 mg PO DAILY 90 tabs 1RF 90 days ascorbic acid (vitamin C) 1 g PO DAILY 90 caps 1RF 90 days Patient Instructions: This note is constructed using voice recognition software. While every effort has been made to ensure accuracy occupational therapy technician errors may have been included. Imaging studies, laboratory and physical exam results were discussed and reviewed in detail. No major barriers to patient understanding were identified. An opportunity to ask questions regarding the treatment plan was provided. All questions were answered. The patient expressed understanding and agreement with the above treatment plan. The patient is aware they should contact our office by phone for worsening of their current condition or the appearance of new urologic symptoms. Compliance is encouraged with any medications and followup testing that is ordered. It is a privilege to participate in the urologic care of your patient. If you have any questions or concerns regarding treatment for the above conditions, or other urologic issues, please do not hesitate to contact me. The office telephone contact is [phone]. Sincerely, Dr Nelson Calvo MD, [facility] - Urology Compassionate Specialist Care for the Genitourinary System Coding Level of Care Code Tele Est Pt Level 3 (16743) Complex visit Add On G2211 Diagnoses Recurrent urinary tract infection N39.0 Suprapubic catheter Z93.59
--- OUTSIDE RECORDS SUMMARY | 2025-09-12 22:22 | XMS_ITS | Continuity of Care Document ---
Author Name [facility], Medical Address [address] [place] [address] Organization Unknown Address [address] [place] [id number] Medications No known medications Problems No known problems
--- OUTSIDE RECORDS SUMMARY | 2025-09-12 22:22 | XMS_ITS | Patient Health Record ---
Author Organization [facility] Tiffany raines Buhl Address [address] [place] [address] Care Team Providers Care Hospitality Internship Name Role Phone Evie Sherman Primary Care Provider Unavailable Atiya García Unavailable [phone] Reason For Referral Diagnosis 1 Pain in unspecified foot (M79.673) Referring Provider First Name Evie Referring Provider Last Name Jermain crawfordo [facility] Denny Referred Provider Atiya García Referred Address [address],[place], [place],[address], Referred Provider Specialty Podiatry Referral Priority Routine Encounters Encounter Location Date Provider Diagnosis [facility] [address] [place] [address] 08/21/2025 Atiya García Plan Of Treatment No Information Insurance Providers Payer Name Payer Address Payer Phone Subscriber Number Group Number Insured Name Patient Relationship to Insured Coverage Start Date Coverage End Date VACCN [address] [place] [id number] Erica Pineda Self - patient is the insured
--- OUTSIDE RECORDS SUMMARY | 2025-09-12 22:22 | XMS_ITS | Clinical Summary ---
Author Organization [facility] Address [address] [facility] [address] [place] [address] Phone Care Team Providers Care Undercutter Operator Name Role Phone Marlen Reyes MD Primary Care Provider [phone] StokesMagen warren DO Unavailable Allergies No known active allergies Medications levothyroxine [...] 2012 ZOSTER VACCINES (1 of 2) 2012 INFLUENZA VACCINE (#1) 2025 COVID-19 VACCINE (3 - 2024-2 6 season) 2025 05/22/2021, 04/24/2021 RSV VACCINE (1 - 1-dose [...] this topic Medical Devices Implanted Type Area Neon Installer Device Identifier Shelf Expiration Date Model / Serial / Lot Neck Hardware Supra Pubic Tube Baclofen Pump Connector Terri 2.0mm Length 10 Repair Nerve Axoguard Coaptation Aid Peripheral - [id number] Implanted:Qty: 1 on 09/19/2019 by Ramón Carbajal MD at [facility] Left: [employer] 12/10/2020 [id number] / [id number] / [id number] [place] [address] [address] [place] [address] [place] [id number] , [place] [id number] , [place] [address] [place] [address] Advance Directives For more information, please contact: [phone] (9AM - 5PM [facility], Thursday-Thursday) Documents on File Type Date Recorded Patient Museum Or Zoo Director Expl anation Healthcare Proxy 09/22/2019 8:04 AM Care Teams Undercutter Operator Relationship Specialty Start Date End Date Marlen Reyes MD PCP - General Internal Medicine 06/24/19 Magen Stokes DO [address] [place] [id number] Physical Medicine and Rehabilitation 09/12/19 Additional Source Comments The information contained in this document represents components of the legal health record. It is not the complete legal health record.[facility]
--- OUTSIDE RECORDS SUMMARY | 2025-09-12 22:23 | XMS_ITS | Encounter Summary ---
Author Organization [facility] Address [address] [place] [address] Encounters * CPT with Medical [facility] at [facility] on 2025-09-08 { reasonForRequest : Pt reporting problems with her right eye>started off as redness in the eye which has turned black, referring to the blackness as a \ rajani ck blood bubble\ , patientReports : , denies :[ Sudden onset of dental pain, unable to manage own secretions , Nosebleed lasting longer than one hour; unable to stop bleeding , Throat swelling/difficult swallowing ], chiefC omplaints : Eye Complaint , pmh : Para or Quadriplegia, Anxiety Disorder, Depression, Urinary Tract Infections (UTI) , allergies : Penicillins, Sulfa (Sulfonamide Antibiotics), Nitrofurantoin , otherAllergies :null, painAssessment : , visitOutcome : , additionalComments : 64 y.o female complains of Eye Complaint\n\nSelf-referring. Red/itchy R eye for the past two days. Woke up this morning and the white of her R eye is now black/blood colored with areas of bubbles. Denies pain - reports that it is just \ annoying\ . Relief when eye remains closed. Had cataract surgery to both eyes in April - no known complications. Used saline drops this morning but otherwise no other PRNs for comfort. Denies injury to the area, denies rubbing eyes. No drainage. Denies fever/chills. Eyelid and skin around the eye normal in appearance. Denies changes in vision. Adamantly refusing to go to the ED despite multiple attempts to advise the patient to do so. Risk of vision lossdue to delayed treatment discussed - patient understanding. [facility] Not [facility] an ticoagulation. Denies CKD. \n\nI provided information on the mobile health provider response time and advised the patient and/or caregiver to monitor reported signs and symptoms. I discussed the warning signs of when to seek emergency care. } [facility] responds to the listed address for a 64 yof w/ an eye complaint. Upon arrival on scene, pt answers the door for OFELIA in her power wheelchair. She is paraplegic, generally well-appearing, and not in acute distress. She has an obvious conjunctival issue in the R eye,but she is otherwise moving around, conversing, and acting in an appropriate manner. Pt tells OFELIA her R eye was bloodshot on the outer cornier yesterday and today when she awoke, the whole sclera was black and looked as though it was bubbling. She has not been rubbing it andit feels better w/ her eye closed, as the inner corner feels gritty . Pt denies any trauma, has not been ill w/ n/v/d, no severe HAs, visual disturbances, dizziness or lightheadedness. Shesays she had bilateral cataract surgery several months ago w/ no known complications. She has also had no recent episodes of autonomic dysreflexia. [facility] obtains vital signs and pt is normotensive, afebrile, and not hypoxic. Physical assessment is limited to the head and face. Head is atraumatic and normocephalic. Left sclera is clear, R sclera mali very dark red color w/ and area of bulging noted to the inner corner. No samantha bleeding or drainage is noted. Bilateral pupils are PERLLA and extraocular movements are intact. Pt has full visual field capacity. [facility] takes photos for [facility] inspection. [facility] contacts [facility] and discusses the above. [facility] dx subconjunctival hemorrhage and prescribes artificial tears or the pt and advises cool compresses forthe next few days and switching to warm compresses after that. [facility] advises pt this could take a couple weeks to subside. She is instructed to not rub or scratch the eye and to seek emergency are if she develops worsening symptoms, visual disturbances or loss, or if she develops symptoms in the other eye as well as the usual sever cp, sob, uncontrolled n/v/d, or high fever. [facility] ensures pt has no further questions and she is left in stable condition. [facility] is clear. Report completed by ANNA Donaldson [id number]. Written by [employer] on 2025-09-08
--- OUTSIDE RECORDS SUMMARY | 2025-09-12 22:24 | XMS_ITS | Encounter Summary ---
Author Organization [facility] Address [address] [place] [address] Phone Care Team Providers Care Proposal Engineer Name Role Phone Marlen Reyes MD Primary Care Provider [phone] Magen Stokes DO Unavailable [phone] Encounter Details Date Type Department Care Team (Late st Contact Info) Description 09/19/2019 Procedure Pass [facility] PERIOPERATIVE DEPT [address] [place] [phone] Social History Tobacco Use Types Packs/Day Years Used Date Smoking Tobacco: Former Cigarettes Q uit: 2003 Smokeless Tobacco: Never Comments:quit 15 years ago Alcohol Use Standard Drinks/Week Comments Yes 0 (1 standard drink = 0.6 oz pur e alcohol) 4 per year Comments No Sex and Gender Information Value [...] on filedocumented in this encounter Care Teams Proposal Engineer Relationship Specialty Start Date End Date Marlen Reyes MD PCP - General Internal Medicine 06/24/19 Magen Stokes DO [address] [place] [id number] Physical Medicine and Rehabilitation 09/12/19 documented as of this encounter Additional Source Comments The information contained in this document represents components of the legal health record. It is not the complete legal health record.[facility]
== END 2025-09-12 16:30 | disposition home or self-care (01) ==
LOC: HO.HUSH 15:39
PROVIDERS: PCP Internal Medicine; Visit Provider Urology
DX: N39.0 Urinary tract infection, site not specified (principal); Z93.59 Other cystostomy status
CPT/HCPCS: 99213; G2211

== ENCOUNTER → 2025-09-26 13:00 | Outpatient (BNVA) | payer OTHER, SELFPAY | PROVIDERS: PCP Internal Medicine; Visit Provider Urology | DX: Z93.59 Other cystostomy status (principal) | CPT/HCPCS: 51705 ==